=== PATIENT | female | born 2000 | race Caucasian/White ===

== ENCOUNTER 2023-07-22 17:27 | Emergency (ER) | payer MEDICAID, SELFPAY ==
[2023-07-22 17:28] VITALS: BP 136/81; PULSE 81; RESP 16; TEMP 36.3; O2SAT 98; BMI 36.1
--- NOTE | 2023-07-22 18:10 | EDS_ITS ---
HPI HPI - GI History of Present Illness Chief Complaint: Abd Pain Informant: patient Abdominal Pain/Flank Pain Onset: Weeks Context: Gradual Onset Timing: Intermittent Location: Diffuse Current Severity: Mild Maximum Severity: Mild Worsened by: Nothing Relieved by: Nothing Nausea/Vomiting/Emesis GI Symptom: Positive for Nausea Onset: Weeks Severity: Mild Diarrhea/Melena/Hematochezia GI Symptom: Positive for Diarrhea Onset: Weeks Stool Quality: Positive for Loose Severity: Mild Associated Symptoms Associated Symptoms: Negative for Dysuria, Frequency, Hematuria or Urgency Narrative Narrative: 22-year-old female about 7 weeks ago in May she had laparoscopic cholecystectomy done by Dr. Ray in [place], [place]. She has had postoperatively the next several days she had an EGD also. Since since her laparoscopic cholecystectomy she has had diarrhea and just generalized intermittent abdominal pain. She also has a history of appendectomy. Denies any other medical problems. Prior similar symptoms: Yes Recent Illness/Hospitalization: Yes PFSH PFSH Allergy/AdvReac Type Severity Reaction Status Date / Time No Known Allergies Allergy Verified 07/22/23 17:30 Surgical History Hx of appendectomy Hx of cholecystectomy Social History Smoking Status: Never smoker ROS ROS ED ROS Narrative Abdominal pain. Diarrhea. Nausea. Review of Systems ROS Unobtainable: Denies due to encephalopathy Constitutional Constitutional ED: Denies chills or fever(s) ENT ENT ED: Denies ear pain Cardiovascular Cardiovascular: Denies chest pain Respiratory/Chest Respiratory/Chest: Denies cough or dyspnea Gastrointestinal Gastrointestinal: Reports abdominal pain, diarrhea and nausea; Denies constipation, melena or vomiting Genitourinary Genitourinary ED: Denies dysuria or hematuria Musculoskeletal Musculoskeletal: Denies arthralgias Integumentary Denies abscess Neurologic Neurologic: Denies headache(s) Psychiatric Psychiatric: Denies anxiety or depression Endocrine Endocrinology: Denies polydipsia Hematologic/Lymphatic Hematologic/Lymphatic: Denies easy bleeding or easy bruising Allergic/Immunologic Allergic/Immunologic ED: Denies mouth swelling, tongue swelling or urticaria EXAM Physical Exam Narrative Exam Narrative: Well-appearing 22-year-old female. Vital signs stable afebrile. HEENT exam unremarkable. Moist extremities. Neck nontender no lymphadenopathy. Lungs clear to auscultation bilaterally. Heart regular rate and rhythm no murmur. Abdomen soft nondistended normal bowel sounds really no peritoneal signs very minimal tenderness at all. Is primarily upper quadrants. No hernia or mass. Well-healed laparoscopic incision sites. Dry and clean. No erythema. No discharge. No distention or obstruction. Patient moving all 4 extremities. Nontender no edema. Back nontender. Neurologically she is awake and alert. Const Vital Signs: 07/22/23 17:28 Temperature 97.4 F L Temperature Source Temporal Pulse Rate 81 Respiratory Rate 16 Blood Pressure 136/81 H Blood Pressure Mean 99 Pulse Ox 98 Oxygen Delivery Method Room Air Positive well nourished and well developed; Negative for cachectic, contractures or unkempt General Appearance ED: well developed and NAD; Negative for unkempt, cachectic, contractures or pallor Nutritional Appearance: Negative for cachectic HEENT Reports moist mucous membranes normocephalic and atraumatic; Negative for trauma or tenderness Eyes PERRL and EOMs intact bilaterally General Eye ED: Negative for pale conjunctiva or scleral icterus Neck no lymphadenopathy, supple and no JVD General: Negative for tenderness Lymph Lymphatic: Negative for other Resp normal respiratory effort and clear to auscultation bilaterally Effort and Inspection: Negative for respiratory distress Auscultation: Negative for rales, rhonchi or wheezes Cardio regular rate, regular rhythm, S1 normal heart sound, S2 normal heart sound and no murmurs Rate: Negative for bradycardia or tachycardic Rhythm: Negative for abnormal rhythm GI non-distended and no masses; Negative for non-tender GI Narrative: Very mild upper abdominal tenderness. Inspection: Negative for abdominal distention Auscultation: normoactive bowel sounds Palpation: soft, tender and rebound tenderness present; Negative for guarding Back/Spine Negative for no CVA tenderness General Back: Negative for CVA tenderness Cervical Spine: Negative for cervical spine tenderness Thoracic Spine / Upper Back: Negative for thoracic spinal tenderness Lumbar Spine / Lower Back: Negative for lumbar spinal tenderness Coccyx: Negative for other Extremity full ROM General Extremety ED: Negative for edema or tenderness General Extremity: Negative for edema Neuro CN's II-XII intact bilaterally and moves all extremities Sensorium / Orientation: alert, oriented to person, oriented to place and oriented to time Motor Exam: strength 5/5 throughout Psych mental status grossly normal and thought process normal Appearance: Negative for unkempt Attitude: No agitated Mood & Affect: Negative for depressed, anxious or tearful Skin no wounds General Skin Exam: Negative for jaundice or pallor Lesions: no lesions Rashes: no rashes Trauma: Negative for abrasion Nails: Negative for discolored MDM MDM MDM Narrative Medical decision making narrative: 22-year-old female abdominal pain status post laparoscopic cholecystectomy about 7 weeks ago. Very benign exam. CAT scan labs pending. She does need anything for pain at this time or nausea. History & Record Review Discussion w/independent historian: Patient Additional record(s) reviewed:: Prior labs Lab Data Attestation: I reviewed the patient's lab results. Lab results narrative: CBC normal. White count of 7. H&H of 15 and 44. Platelets 328. Electrolytes show gap of 4. Normal BUN and creatinine. Glucose 82. Liver enzymes normal. Lipase normal at 34. Serum test negative. CAT scan of the abdomen showed no acute abnormalities other than an ovarian cyst. Labs: Laboratory Results - last 24 hr 07/22/23 17:43 WBC 7.0 RBC 4.98 Hgb 15.0 Hct 44.4 MCV 89.2 MCH 30.1 MCHC 33.8 RDW Std Deviation 41.2 RDW Coeff of Ck 12.5 Plt Count 328 MPV 10.4 Immature Gran % (Auto) 0.400 Neut % (Auto) 50.1 Lymph % (Auto) 31.3 [place] % (Auto) 14.8 H Eos % (Auto) 3.0 Baso % (Auto) 0.4 Absolute Neuts (auto) 3.5 Absolute Lymphs (auto) 2.18 Nucleated RBC % 0 Sodium 140 Potassium 3.7 Chloride 108 H Carbon Dioxide 28.0 Anion Gap 4 L BUN 12 Creatinine 0.84 Estim Creat Clear Calc 122.01 Est GFR (MDRD) Af Amer 109 Est GFR (MDRD) Non-Af 90 BUN/Creatinine Ratio 14.3 Glucose 82 Calcium 10.0 Total Bilirubin 0.30 AST 22 ALT 29 Alkaline Phosphatase 100 Total Protein 8.5 H Albumin 4.0 Globulin 4.5 H Albumin/Globulin Ratio 0.9 Lipase 34 Serum , Qual NEGATIVE Radiography Diagnostic Testing: Clinical Impression(s) from Imaging Studies Abdomen/Pelvis CT 07/22/23 18:10 IMPRESSION: Postsurgical changes status post appendectomy and cholecystectomy Small bilateral ovarian cysts and trace of fluid in the cul-de-sac likely due to recent ovulation No evidence for small bowel obstruction or other acute abnormalities Electronically Signed: Calvin Mendoza MD at 19:12 EST Reading Location ID and State: [facility] / [place] Tel , Service support , Discharge Plan Triage Chief Complaint: Abd Pain ED Provider: Nic Chan Dx/Rx/DC Orders Clinical Impression: Ovarian cyst, History of cholecystectomy, History of appendectomy, Abdominal pain Instructions: Abdominal Pain Primary Care Provider: Citlaly Collazo NP Referrals: Citlaly Collazo NP, [employer] [facility] [Primary Care Provider] - 1 Week if not improving Activity Restrictions/Additional Instructions: Your labs were normal. Your CAT scan just showed 2 very small ovarian cyst. Tylenol and Motrin for pain. Follow-up with your doctor if not improving or your general surgeon. Disposition Disposition: Home, Self Care
--- NOTE | 2023-07-22 18:10 | CT_ITS ---
STUDY: CT ABDOMEN AND PELVIS WITH CONTRAST REASON FOR EXAM: Female, 22 years old. abd pain s/p lap corie RADIATION DOSAGE (If Supplied By Facility): CTDIvol = ( 16.70 ) mGy, DLP = ( 1257.83 ) mGycm TECHNIQUE: Transaxial images were obtained from the dome of the diaphragm to the symphysis pubis without oral contrast. IV 100mL Isovue-370 was administered. Sagittal and coronal images were reconstructed. Individualized dose optimization techniques were used for this CT. COMPARISON: None. FINDINGS: The visualized lung bases are unremarkable. The visualized portions of the heart are within normal limits. Normal liver. Postop change status post cholecystectomy. Normal spleen. Normal pancreas. Normal bilateral adrenal glands. Normal right kidney. Normal left kidney. Normal visualized stomach. Normal small intestine. Normal colon. Postop change status post appendectomy. Normal abdominal aorta. Normal inferior vena cava. Normal retroperitoneum. Normal urinary bladder. Small left ovarian cyst measuring 2.73 x 2.41 cm. Small right ovarian cyst measuring approximately 1.67 x 2 cm Trace of fluid in the cul-de-sac likely due to recent ovulation. Mild thickening of the periumbilical fat possibly due to recent postsurgical changes.. Normal osseous structures. CT/Abdomen/Pelvis W IV Cont ONLY IMPRESSION: Postsurgical changes status post appendectomy and cholecystectomy Small bilateral ovarian cysts and trace of fluid in the cul-de-sac likely due to recent ovulation No evidence for small bowel obstruction or other acute abnormalities Electronically Signed: Calvin Mendoza MD at 19:12 EST Reading Location ID and State: [facility] / [place] Tel , Service support ,
[2023-07-22 18:29] LABS: Absolute Lymphocyte Count 2.18 X10^3/uL (0.83-4.51); Absolute Neutrophil Count 3.5 X10^3/uL (2.0-7.7); Basophil# 0.03 X10^3/uL; Basophil% 0.4 % (0-1); Eosinophil# 0.21 X10^3/uL; Hematocrit 44.4 % (37-47); Lymphocyte # 2.18 X10^3/ul (0.83-4.51); Lymphocyte % 31.3 % (19-41); Mean Corp Hgb Conc 33.8 g/dL (32-36); Mean Corpuscular Hgb 30.1 pg (27.0-32.0); Mean Corpuscular Volume 89.2 fL (81-99); Mean Platelet Vol. 10.4 fl (6.2-12.0); Monocyte# 1.03 X10^3/uL; Monocyte% 14.8 % (0-10); NRBC Flagged by Analyzer 0 % (0-5); Neutrophil # 3.48 X10^3/uL (2.7-7.7); Neutrophil % 50.1 % (47-70); Platelet Count 328 K/mm3 (150-450); RBC Distribution Width CV 12.5 % (11.6-14.6); RBC Distribution Width SD 41.2 fl (35.1-43.9); Red Blood Count 4.98 M/mm3 (4.2-5.4)
[2023-07-22 18:38] LABS: Internal QC Validated? YES +Cl - CLEAR BKGD; Pregnancy, Serum, hCG Quali. NEGATIVE Negative
[2023-07-22 18:46] LABS: ALB/GLOB Ratio 0.9 RATIO (0.9-2.4); AST(SGOT) 22 U/L (15-37); Alanine Aminotransfer ALT/SGPT 29 U/L (13-56); Alkaline Phosphatase 100 U/L (45-117); Anion Gap 4 (5-15); BUN 12 mg/dL (7-18); BUN/Creat Ratio 14.3 RATIO (10-20); Chloride 108 mmol/L (98-107); Creatinine, Serum 0.84 mg/dL (0.55-1.02); EST Glomerular Filtration Rate 90 mL/min (>60); Est Glom Filt Rate - Afr Amer 109 mL/min (>60); Estimated Creatinine Clearance 122.01 ml/min; Globulin 4.5 g/dL (2.2-4.2); Glucose 82 mg/dL (74-106); Lipase 34 U/L (13-75); Potassium 3.7 mmol/L (3.5-5.1); Protein, Total 8.5 g/dL (6.4-8.2); Sodium Level 140 mmol/L (136-145)
[2023-07-22 19:44] VITALS: BP 115/69; PULSE 83; RESP 17; O2SAT 98
[2023-07-22 19:57] VITALS: BP 115/69; PULSE 83; RESP 17; TEMP 36.4; O2SAT 98
== END 2023-07-22 19:58 | disposition home or self-care (01) ==
PROVIDERS: Emergency Provider Emergency Medicine; PCP Nurse Practitioner Family; Visit Provider Emergency Medicine
DX: N83.202 Unspecified ovarian cyst, left side (principal); N83.201 Unspecified ovarian cyst, right side; R10.9 Unspecified abdominal pain
CPT/HCPCS: 74177; 80053; 83690; 84703; 85025; 99283; Q9967; A4216

== ENCOUNTER → 2024-09-24 | Outpatient (CLI) | payer MEDICAID, SELFPAY ==
[2024-09-24 10:49] LABS: Absolute Lymphocyte Count 2.44 X10^3/uL (0.83-4.51); Absolute Neutrophil Count 3.8 X10^3/uL (2.0-7.7); Basophil# 0.05 X10^3/uL; Basophil% 0.7 % (0-1); Eosinophil# 0.35 X10^3/uL; Eosinophils% 4.9 % (0-5); Hematocrit 42.4 % (37-47); Hemoglobin 14.1 g/dL (12.0-15.0); Lymphocyte # 2.44 X10^3/ul (0.83-4.51); Lymphocyte % 33.8 % (19-41); Mean Corp Hgb Conc 33.3 g/dL (32-36); Mean Corpuscular Hgb 28.7 pg (27.0-32.0); Mean Corpuscular Volume 86.4 fL (81-99); Mean Platelet Vol. 10.6 fl (6.2-12.0); Monocyte# 0.56 X10^3/uL; Monocyte% 7.8 % (0-10); NRBC Flagged by Analyzer 0 % (0-5); Neutrophil # 3.77 X10^3/uL (2.7-7.7); Neutrophil % 52.2 % (47-70); Platelet Count 353 K/mm3 (150-450); RBC Distribution Width CV 13.1 % (11.6-14.6); RBC Distribution Width SD 40.9 fl (35.1-43.9); Red Blood Count 4.91 M/mm3 (4.2-5.4); White Blood Count 7.2 K/mm3 (4.4-11.0)
[2024-09-24 12:04] LABS: ALB/GLOB Ratio 1.3 RATIO (0.9-2.4); AST(SGOT) 37 U/L (<=31); Alanine Aminotransfer ALT/SGPT 48 U/L (<=34); Albumin, Serum 4.5 g/dL (3.5-5.0); Alkaline Phosphatase 102 U/L (35-104); Anion Gap 14 (5-15); BUN 11 mg/dL (4-19); BUN/Creat Ratio 14.2 RATIO (10-20); CRP 3.89 mg/L (0.0-3.0); Calcium,Total 9.7 mg/dL (7.6-11.0); Carbon Dioxide 20.9 mmol/L (21.0-32.0); Chloride 105 mmol/L (98-108); Creatinine, Serum 0.74 mg/dL (0.70-1.20); EST Glomerular Filtration Rate 117 (>60); Globulin 3.5 g/dL (2.2-4.2); Glucose 96 mg/dL (70-99); Sodium Level 140 mmol/L (133-145); Thyroid Stim Hormone (TSH) 0.741 uIU/mL (0.300-4.200); Total Bilirubin 0.31 mg/dL (0.00-1.30)
== END | disposition home or self-care (01) ==
LOC: LAB 09:40
PROVIDERS: PCP Nurse Practitioner Family
DX: R19.7 Diarrhea, unspecified (principal)
CPT/HCPCS: 36415; 80053; 82784; 83516; 84443; 85025; 86140; 86255

== ENCOUNTER → 2024-09-25 | Outpatient (CLI) | payer MEDICAID, SELFPAY ==
[2024-09-27 12:08] LABS: Pancreatic Elastase, Fecal > 800 (>200)
[2024-09-28 02:07] LABS: Calprotectin, Stool 18 ug/g (0-120)
== END | disposition home or self-care (01) ==
LOC: LABSPEC 09:03
PROVIDERS: PCP Nurse Practitioner Family
DX: R19.7 Diarrhea, unspecified (principal)
CPT/HCPCS: 82653; 83993

== ENCOUNTER → 2025-01-04 | Outpatient (CLI) | payer MEDICAID, SELFPAY ==
--- NOTE | 2025-01-04 10:06 | NM_ITS ---
PROCEDURE: GASTRIC EMPTYING STUDY 01/04/2025 REASON FOR EXAM: FREQUENT NAUSEA TECHNIQUE: The patient ingested a standard meal of oatmeal, radiopharmaceutical and water. There was no vomiting postprandially. Anterior and posterior planar images of the upper abdomen were obtained for 1 minute immediately following the meal at 1h, 2h and 4h if more than 10% of the activity persisted within the stomach. Regions of interest were drawn, and a geometric mean was used to calculate a [id number]. RADIOPHARMACEUTICAL: Sulfur colloid DOSE 1.2 mCimCi FINDINGS: Percent activity remaining in stomach: 1 hour 69 % (normal 37-90%) NM/Gastric Emptying Study IMPRESSION: Normal gastric emptying examination. Reading Location: [place] [id number]
--- OUTSIDE RECORDS SUMMARY | 2025-01-04 19:04 | XMS RPT_ITS | CCD ---
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 Name Role Phone Required, No Pcp Unavailable Unavailable Gallo Solo Unavailable Albina Fletcher Unavailable ISAURA CONN CNP Attending Unavailable ISAURA CONN CNP Primary Care Unavailable ISAURA CONN CNP Admitting Unavailable Uptain CNM, Crystal K Unavailable [phone] Steffany SHEPARDN, Antonina Unavailable Ana Smith LPN Unavailable Unavailable Unavailable Unavailable Tom WEAVER, Jass Unavailable Unavailable Dewey CHOUDHURY, Susan Unavailable Unavailable [facility] Attending Unavailable UPTAIN, CRYSTAL CNM Admitting Unavailable UPTAIN, CRYSTAL CNM Attending Unavailable UPTAIN, CRYSTAL CNM Primary Care Unavailable ISAURA CONN CNP Consulting Unavailable PROVIDER, UNKNOWN Consulting Unavailable PROVIDER, UNKNOWN Consulting Unavailable UPTAIN, CRYSTAL CNM Admitting Unavailable UPTAIN, CRYSTAL CNM Attending Unavailable UPTAIN, CRYSTAL CNM Primary Care Unavailable ISAURA CONN CNP Consulting Unavailable PROVIDER, UNKNOWN Consulting Unavailable PROVIDER, UNKNOWN Consulting Unavailable UPTAIN, CRYSTAL CNM Admitting Unavailable UPTAIN, CRYSTAL CNM Attending Unavailable UPTAIN, CRYSTAL CNM Primary Care Unavailable ISAURA CONN CNP Consulting Unavailable PROVIDER, UNKNOWN Consulting Unavailable PROVIDER, UNKNOWN Consulting Unavailable ISAURA CONN CNP Admitting Unavailable ISAURA CONN CNP Attending Unavailable ISAURA CONN CNP Primary Care Unavailable ISAURA CONN CNP Consulting Unavailable PROVIDER, UNKNOWN Consulting Unavailable PROVIDER, UNKNOWN Consulting Unavailable ISAURA CONN CNP Admitting Unavailable ISAURA CONN CNP Attending Unavailable ISAURA CONN CNP Primary Care Unavailable ISAURA CONN CNP Consulting Unavailable PROVIDER, UNKNOWN Consulting Unavailable PROVIDER, UNKNOWN Consulting Unavailable UPTAIN, CRYSTAL CNM Admitting Unavailable UPTAIN, CRYSTAL CNM Attending Unavailable UPTAIN, CRYSTAL CNM Primary Care Unavailable ISAURA CONN FENCE SUPERVISOR Consulting Unavailable PROVIDER, UNKNOWN Consulting Unavailable PROVIDER, UNKNOWN Consulting Unavailable Senia ACCESS RN-C, Isaura Primary Care Provider Senia ACCESS RN-C, Isaura Referring Provider Hermann ACCESS RN-C, Patience Attending Provider [phone] Hermann ACCESS RN-C, Patience Referring Provider [phone] Patrick PA-C, Betty Jasso Unavailable Senia ACCESS RN, Isaura Primary Care Unavailable Senia ACCESS RN, Isaura Referring Unavailable Mccrary, Patience Attending Unavailable Mccrary, Patience Attending Unavailable Senia ACCESS RN, Isaura Referring Unavailable Senia ACCESS RN, Isaura Primary Care Unavailable Mccrary, Patience Attending Unavailable Senia ACCESS RN, Isaura Referring Unavailable Senia ACCESS RN, Isaura Primary Care Unavailable Senia ACCESS RN, Isaura Primary Care Unavailable Mccrary, Patience Referring Unavailable Mccrary, Patience Attending Unavailable Senia ACCESS RN, Isaura Primary Care Unavailable Mccrary, Patience Referring Unavailable Mccrary, Patience Attending Unavailable Mccrary, Patience Attending Unavailable Senia ACCESS RN, Isaura Primary Care Unavailable Mccrary, Patience Referring Unavailable Senia ACCESS RN, Isaura Referring Unavailable Senia ACCESS RN, Isaura Primary Care Unavailable Mccrary, Patience Attending Unavailable Medications Current Medications Medication Drug Class(es) Dates Sig (Normalized) Sig (Original) colestipol hydrochloride 1000 mg oral tablet (2 sources) Bile Acid Sequestrant Start: 10-11-2024 Colestipol (Colestid) 1 gram tablet Active 1 g PO TWICE A DAY 60 0 October 11, 2024 12:00am Completed/Discontinued Medications Medication Drug Class(es) Dates Sig (Normalized) Sig (Original) nitrofurantoin, macrocrystals 25 mg / nitrofurantoin, monohydrate 75 mg oral capsule (20 sources) Nitrofuran Antibacterial Start: 02-02-2024 End: 02-09-2024 Macrobid 100 mg capsule ; 1 (one) capsule two times daily for 7 days Quantity: 14 {Capsule} Refills: 0 Ordered: 02-Feb-2024 BRENDON Francisco Debra Moreno Start: 02-Feb-2024 End: 09-Feb-2024 Status: Inactive Problems Active Problems Problem Classification Problem Date Documented Da te Episodic/Chronic Abdominal pain (3 sources) Abdominal pain; Translations: [Unspecified abdominal pain] 07-22-2023 Episodic Contraceptive and procreative management (14 sources) Contraception status; Translations: [Encounter for other general counseling and advice on contraception] 09-13-2024 Episodic Genitourinary symptoms and ill-defined conditions (20 sources) Bacteriuria; Translations: [Bacteriuria] 02-02-2024 Episodic Other complications of (3 sources) Maternal care for abnormalities of the heart rate or rhythm, third trimester, not applicable or unspecified; Translations: [Maternal care for abnormalities of the heart rate or rhythm, third trimester, not applicable or unspecified] Onset: 07-19-2024 Episodic Other connective tissue disease (1 source) Pain in thumb ; Translations: [Pain in limb] 07-11-2021 Episodic Other connective tissue disease (3 sources) Pain in right leg; Translations: [Pain in right leg] Onset: 07-09-2024 Episodic Other gastrointestinal disorders (12 sources) Disorder of digestive system; Translations: [Disease of digestive system, unspecified] 09-13-2024 Episodic Comment on above: states every time sh e eats she has vomiting and diarrhea, every single time. weight loss of 5lbs in the last 6 weeks since 1 week post-op. history of chronic stomach issues prior to . Other gastrointestinal disorders (6 sources) Diarrhea; Translations: [Diarrhea, unspecified] 09-24-2024 Episodic Other gastrointestinal disorders (2 sources) Diarrhea, unspecified; Translations: [Diarrhea, unspecified] Onset: 12-20-2024 Episodic Other nervous system disorders (12 sources) Numbness of lower limb ; Translations: [Anesthesia of skin] 09-13-2024 Episodic Comment on above: normal strength, nor mal tone, normal ROM, resist gravity and pressure, sensation to sharp intact, states dull is also sharp. states constant numbness that does not go away. Other nutritional; endocrine; and metabolic disorders (12 sources) Body mass index 30+ - obesity; Translations: [Obesity, unspecified] 09-13-2024 Chronic Other and delivery including normal (20 sources) Primigravida; Translations: [Encounter for supervision of normal first , first trimester] Onset: 07-19-2024 12-29-2023 Episodic Other screening for suspected conditions (not mental disorders or infectious disease) (20 sources) Patient encounter status; Translations: [Encounter for screening, unspecified] 04-21-2024 Episodic Ovarian cyst (3 sources) Cyst of ovary; Translations: [Unspecified ovarian cyst, unspecified side] 07-22-2023 Episodic Residual codes; unclassified (20 sources) Gestation period, 10 weeks; Translations: [10 weeks gestation of ] 12-29-2023 Episodic Residual codes; unclassified (20 sources) Non-smoker; Translations: [Other specified health status] 12-29-2023 Episodic Residual codes; unclassified (20 sources) Not up to date with immunizations; Translations: [Other specified personal history presenting hazards to health] 12-29-2023 Episodic Comment on above: partial childhood va ccines, 1MMR partial childhood va ccines, 1MMR----not immune to varicella by titer Residual codes; unclassified (20 sources) Gestation period, 13 weeks; Translations: [13 weeks gestation of ] 01-19-2024 Episodic Residual codes; unclassified (20 sources) Gestation period, 17 weeks; Translations: [17 weeks gestation of ] 02-17-2024 Episodic Residual codes; unclassified (20 sources) Gestation period, 22 weeks; Translations: [22 weeks gestation of ] 03-22-2024 Episodic Residual codes; unclassified (20 sources) Gestation period, 26 weeks; Translations: [26 weeks gestation of ] 04-21-2024 Episodic Residual codes; unclassified (20 sources) Gestation period, 30 weeks; Translations: [30 weeks gestation of ] 05-20-2024 Episodic Residual codes; unclassified (19 sources) Gestation period, 33 weeks; Translations: [33 weeks gestation of ] 06-07-2024 Episodic Residual codes; unclassified (20 sources) Gestation period, 36 weeks; Translations: [36 weeks gestation of ] 06-30-2024 Episodic Residual codes; unclassified (20 sources) Gestation period, 38 weeks; Translations: [38 weeks gestation of ] 07-14-2024 Episodic Residual codes; unclassified (1 source) 39 weeks gestation of ; Translations: [39 weeks gestation of ] Onset: 07-19-2024 Episodic Residual codes; unclassified (12 sources) At risk for depressed mood during period; Translations: [Other specified personal risk factors, not elsewhere classified] 09-13-2024 Episodic Comment on above: edps is 05/24 which indicates depression but denies depression today Residual codes; unclassified (4 sources) Unprotected sexual intercourse; Translations: [High risk heterosexual behavior] 11-02-2024 Episodic Unclassified (2 sources) FINGER PAIN/ HAND PAIN 07-11-2021 Comment on above: FINGER PAIN/ HAND PA IN Unclassified (1 source) NPV..HAND PAIN.. NEEDS TO ESTABLISH PCP CARE 07-11-2021 Comment on above: NPV..HAND PAIN.. NEE DS TO ESTABLISH PCP CARE Unclassified (1 source) Thumb pain 07-11-2021 Unclassified (20 sources) Abortions, spontaneous 12-29-2023 Comment on above: 2. 3. Unclassified (20 sources) 12-29-2023 Comment on above: 3. Unclassified (20 sources) Number of Children 12-29-2023 Comment on above: 0. 1. Unclassified (20 sources) Number of Pregnancies 12-29-2023 Comment on above: 3. 4. Unclassified (8 sources) deliveries 07-28-2024 Comment on above: 1. Viral infection (20 sources) Varicella 12-29-2023 Episodic Comment on above: unsure of status, no vaccine unsure of status, no vaccine titer shows not immune Past or Other Problems Problem Classification Problem Date Documented Da te Episodic/Chronic Unclassified (20 sources) visit (initial) 12-29-2023 Unclassified (20 sources) visit - The patient is here for a 13 week (1) visit. 01-19-2024 Unclassified (1 source) visit - The patient is here for a 17 week (2 days) visit. 02-17-2024 Unclassified (20 sources) visit - The patient is here for a 17 week (2 days) visit. The patient feels well with no complaints. 02-17-2024 Unclassified (20 sources) visit - The patient is here for a 22 week visit. 03-22-2024 Unclassified (20 sources) visit - The patient is here for a 26 week (3 days) visit. 04-21-2024 Unclassified (1 source) visit - The patient is here for a 30 week (4 days) visit. 05-20-2024 Unclassified (19 sources) visit - The patient is here for a 30 week (4 days) visit. The patient feels well with no complaints. 05-20-2024 Unclassified (18 sources) visit - The patient is here for a 33 week (2) visit. 06-08-2024 Unclassified (16 sources) visit - The patient is here for a 36 week (1 day) visit. 06-30-2024 Unclassified (14 sources) visit - The patient is here for a 38 week (3 days) visit. 07-14-2024 Unclassified (8 sources) Post- visit - The patient is here for an initial visit after an elective (Initial trial of induction, FHR decelerations). The was complicated by other complication(s) (FHR decelerations). The patient has decreased energy level, is sleeping well and feels well with minor complaints. The patient has complaints of incisional pain (mild left side, taking Ibuprofen for same). There are no urinary problems. There are no bowel problems. Perineum/wound: abdominal wound healing well. Lochia is scant. The patient is formula feeding the infant. There are no feeding difficulties. 07-28-2024 Unclassified (7 sources) Post- visit - The patient is here for a scheduled follow-up visit after an elective . There were no complications. The patient is sleeping well, has good energy level and feels well with minor complaints (numbness in legs what comes and goes). The patient denies chills, depression (post- blues), fatigue or fever. There are no urinary problems. There are no bowel problems. Perineum/wound: abdominal wound healing well. There is no lochia. The patient is formula feeding the . There are no feeding difficulties. Menstruation: spotting. Patient states that sexual activity has resumed and contraception is not used. No control is currently used. The patient has resumed work, resumed routine exercise and resumed physical activity. Patient states that she is coping/adjusting to motherhood well and family is interacting well with . 09-13-2024 Unclassified (1 source) IUD placement 11-02-2024 Unclassified (2 sources) IUD placement - LMP 2 weeks ago, lasting 1 week. 11-02-2024 Unclassified (1 source) String Check - IUD was placed 11/02/24 LMP 11/28/24No cramping or painpt does say she has had spotting off and on since getting IUD placed Patient has a 5 year IUD 11-29-2024 Results Test Name Value Interpretation Reference Range Facility Gastroenterology Visit Repor ton 12-17-2024 Gastroenterology Visit Report [facility] [address] [place] [address] OFFICE VISIT Date of Service: 12/17/24 MR#: [id number] Acct: [id number] Name: SHWETA ARMENDARIZ Rep #: [id number] : 2000 Provider: TWILA kate Age/Sex: 24/F Location: [facility] [place] Status: Signed Intake Vital Signs 07/22/23 17:28 Height 5 ft 5 in Intake Visit Reasons: Nausea/Vomiting Allergies No Known Allergies Allergy (Verified 12/17/24 08:17) PFSH Medical History (Updated 12/17/24 @ 08:59 by TWILA Hale) Dyspepsia Right leg pain Generalized postprandial abdominal pain Diarrhea Surgical History Hx of cholecystectomy Hx of appendectomy Social History Smoking Status: Never smoker alcohol intake: never substance use type: does not use HPI HPI Details: SHWETA ARMENDARIZ, is a 24 F who presents to the office today for FU. 5 OV Established 5.2.25 with c/o diarrhea w/urgency after eating associated with nausea. Serum and fecal testing ruled out EPI, IBD. She denies abdominal pain at any point. She has not really tried to increase dietary fiber or peppermint or quique for her nausea as recommended. She denies noticing any specific food triggers. She denies notable weight loss, reports appropriate healing from and baby boy is growing well and being bottle/formula fed. 12.17.24 OV Reports stopping colestipol soon after starting. She reports immediate nausea after taking, but sated it did help lessen my diarrhea. She denies trying quique or peppermint as previously advised to help with her nausea. She denies increasing dietary fiber. She has bowel urgency following every meal, regardless of the size of the meal. She does report eliminating meat, mostly red, from her diet. She reports less gas with this diet change. ROS Const Constitutional: Positive for headache(s); No fatigue, fever(s) or weight change ENT ENT: Positive for headache(s); No difficulty swallowing Gastro GI: Positive for diarrhea and nausea/dyspepsia; No abdominal pain, belching, bloating, change in bowel habits, change in stool character, coffee ground emesis, constipation, cramping, heartburn, difficulty swallowing, feeling full early, excessive flatus, incontinent of stools, Vomiting blood/hematemesis, Blood in stool, loose stools, Black,tarry stools, pain with swallowing, vomiting or other Musc Musculoskeletal: Positive for back pain, numbness, stiffness and tingling; No joint pain Skin Skin: No yellowing of the eye or itchy eyes Neuro Neurology: Positive for headache(s), numbness and tingling Psych Psychiatric: No anxiety and No depression Endo Endocrine: No fatigue or weight change Aller/Imm Allergy/Immunologic: No itchy eyes Carlo/Lymp Hematologic/Lymphatic : No easy bleeding or easy bruising Exam Const General: cooperative, healthy appearing, comfortable, no acute distress and well groomed Nutritional Appearance: overweight Orientation: alert and oriented x3 [facility] Head: normal to inspection Ears: hearing grossly normal bilaterally Eyes General: appearance normal, both eyes and all related structures Sclera: sclerae normal Neck Neck: normal visual inspection and full ROM Chest Chest palpation inspection: normal inspection of the chest Resp Effort Inspection: normal respiratory effort and able to speak in complete sentences GI Inspection: normal to inspection and obesity Skin General: no rashes or lesions noted Neuro General: patient alert, patient oriented x3 and moves all extremities Cognition: normal cognition Speech: speech normal Gait: normal gait Extrem General: full ROM Psych Appearance: well kempt Mental Status: mental status grossly normal Mood: congruent mood Judgment: judgment good Assessment and Plan Assessment and Plan (1) Diarrhea: Status: Chronic Qualifiers: Diarrhea type: unspecified type Qualified Code(s): R19.7 - Diarrhea, unspecified (2) Nausea: Status: Acute Orders: Orders Gastric Emptying Study Today R19.7 - Diarrhea, unspecified Medications: Discontinued colestipol (Colestid) Discontinued Reason: Pt no longer taking 1 g PO BID 60 tabs 0RF Plan SHWETA ARMENDARIZ, is a 24 F who presents to the office today for FU. Reports stopping colestipol soon after starting. She reports immediate nausea after taking, but sated it did help lessen my diarrhea. She denies trying quique or peppermint as previously advised to help with her nausea. She denies increasing dietary fiber. She has bowel urgency following every meal, regardless of the size of the meal. She does report eliminating meat, mostly red, from her diet. She reports less gas with this diet change (more content not included)... Normal [facility] Laboratory - Chemistry and C hemistry - challengeon 11-02-2024 Beta HCG ( test) Ql (U) Negative Normal [facility] Gastroenterology Visit Repor ton 10-11-2024 Gastroenterology Visit Report [facility] Gastroenterology [address] [place] [address] OFFICE VISIT Date of Service: 10/11/24 MR#: [id number] Acct: [id number] Name: SHWETA ARMENDARIZ Rep #: [id number] : 2000 Provider: TWILA kate Age/Sex: 23/F Location[place] [facility] [place] Status: Signed Intake Vital Signs 07/22/23 17:28 Height 5 ft 5 in Intake Visit Reasons: 2 W FU Allergies No Known Allergies Allergy (Verified 10/11/24 10:37) Medications ???Medication ???Instructions ???Recorded ???Confirmed ???Type colestipol 1 gram tablet (Colestid) 1 g PO BID #60 tabs 10/11/24 Rx PFSH Medical History Dyspepsia Right leg pain Generalized postprandial abdominal pain Diarrhea Surgical History Hx of cholecystectomy Hx of appendectomy Social History Smoking Status: Never smoker alcohol intake: never substance use type: does not use HPI HPI Details: SHWETA ARMENDARIZ, is a 23 F who presents to the office today for FU. Established 5.2.25 with c/o diarrhea w/urgency after eating associated with nausea. Serum and fecal testing ruled out EPI, IBD. She denies abdominal pain at any point. She has not really tried to increase dietary fiber or peppermint or quique for her nausea as recommended. She denies noticing any specific food triggers. She denies notable weight loss, reports appropriate healing from and baby boy is growing well and being bottle/formula fed. ROS Const Constitutional: No fatigue, fever(s) or weight change ENT ENT: No difficulty swallowing Gastro GI: Positive for abdominal pain, diarrhea and nausea/dyspepsia; No belching, bloating, change in bowel habits, change in stool character, coffee ground emesis, constipation, cramping, heartburn, difficulty swallowing, feeling full early, excessive flatus, incontinent of stools, Vomiting blood/hematemesis, Blood in stool, loose stools, Black,tarry stools, pain with swallowing, vomiting or other Musc Musculoskeletal: No joint pain Skin Skin: No yellowing of the eye or itchy eyes Psych Psychiatric: No anxiety and No depression Endo Endocrine: No fatigue or weight change Aller/Imm Allergy/Immunologic: No itchy eyes Carlo/Lymp Hematologic/Lymphatic : No easy bleeding or easy bruising Exam Const General: cooperative, healthy appearing, no acute distress and well groomed Nutritional Appearance: overweight Orientation: alert and oriented x3 [facility] Head: normal to inspection Ears: hearing grossly normal bilaterally Eyes General: appearance normal, both eyes and all related structures Sclera: sclerae normal Neck Neck: normal visual inspection and full ROM Chest Chest palpation inspection: normal inspection of the chest Resp Effort Inspection: normal respiratory effort, able to speak in complete sentences and symmetric chest movement GI Inspection: obesity Skin General: no rashes or lesions noted Neuro General: patient alert, patient oriented x3 and moves all extremities Cognition: normal cognition Speech: speech normal Gait: normal gait Extrem General: full ROM Psych Appearance: well kempt Mental Status: mental status grossly normal Mood: congruent mood Judgment: judgment good Assessment and Plan Assessment and Plan (1) Diarrhea: Status: Acute Qualifiers: Diarrhea type: unspecified type Qualified Code(s): R19.7 - Diarrhea, unspecified Medications: New colestipol (Colestid) 1 g PO BID 60 tabs 0RF Plan SHWETA ARMENDARIZ, is a 23 F who presents to the office today for FU. Established 5.2.25 with c/o diarrhea w/urgency after eating associated with nausea. Serum and fecal testing ruled out EPI, IBD. She denies abdominal pain at any point. She has not really tried to increase dietary fiber or peppermint or quique for her nausea as recommended. She denies noticing any specific food triggers. She denies notable weight loss, reports appropriate healing from and baby boy is growing well and being bottle/formula fed. * colestipol 1gm PO twice daily, take 1 hr AFTER other medications or supplements, may increase to 4 times daily if no change in stool character after 3 days * increase dietary fiber * ok for peppermint use for nausea, 5 drops of oil mixed w/1Tbsp water, candies, tea * office FU 2wks Coding Level of Care Code Established Pt Off vis,est,level 2 Patient Type Established History Problem Focused Exam Problem Focused Medical Decision Making Low Complexity Diagnoses Diarrhea, unspecified type R19.7 Diarrhea type: unspecified type Clinical Quality Measures Smoking Screening Smoking Status: Never smoker 10/11 (more content not included)... Normal [facility] Calprotectin, Stoolon [address] 18 ug/g Normal 0-120 [facility] Comment on above: Result Comment: Conc entration Interpretation Follow-Up < 5 - 50 ug/g Normal None >50 -120 ug/g Borderline Re-evaluate in 4-6 weeks >120 ug/g Abnormal Repeat as clinically indicated Performed at: - [facility] [id number] Kayak Maker: Raymond Charles MD, Phone: [phone] Performed By: #### L [id number], L7200.0700 #### [facility] [address] [place], [address] Celiac Disease Profileon ENDOMYSIAL IGA Negative Normal Negative [facility] Comment on above: Performed By: #### L [id number], L500.4050, L3410.2400, L501.9520, L100.0100 #### [facility] [address] [place], [place], [id number] IMMUNOGLOB A QN 183 mg/dL Normal 87-352 [facility] Comment on above: Result Comment: Perf ormed at: [facility] [id number] Kayak Maker: Aaron French PhD, Phone: [phone] Performed By: #### L [id number], L500.4050, L3410.2400, L501.9520, L100.0100 #### [facility] [address] [place], [address] tTG IGA <2 Normal 0-3 [facility] Comment on above: Result Comment: Nega tive 0 - 3 Weak Positive 4 - 10 Positive >10 Tissue Transglutaminase (tTG) has been identified as the endomysial antigen. Studies have demonstr- ated that endomysial IgA antibodies have over 99% specificity for gluten sensitive enteropathy. Performed By: #### L [id number], L500.4050, L3410.2400, L501.9520, L100.0100 #### [facility] [address] [place], [place], [address] L7000.0750on 09-27-2024 P ELASTASE,FECA > 800 Normal >200 [facility] Comment on above: Result Comment: Resu lt Units: ug Elast./g Severe Pancreatic Insufficiency: <100 Moderate Pancreatic Insufficiency: 100 - 200 Normal: >200 Performed at: [address] [id number] Kayak Maker: Raymond Charles MD, Phone: [phone] Performed By: #### L 7000.0750, L7000.0700 #### [facility] Laboratory [address] [place], [address] Absolute lymphocyte countOrd ered By: Patience Mccrary on 09-24-2024 Lymphocytes Auto (Unsp spec) [#/Vol] 2.44 10*3/uL 0.83-4.51 [facility] Absolute neutrophil countOrd ered By: Patience Mccrary on 09-24-2024 Neutrophils (Bld) [#/Vol] 3.8 10*3/uL 2.0-7.7 [facility] Anion gap in Serum or Plasma Ordered By: Patience Mccrary on 09-24-2024 Anion gap [Moles/Vol] 14 mmol/L 5- [facility] Automated lymphocyte count a s percentage of total leukocytesOrdered By: Patience Mccrary on 09-24-2024 Lymphocytes/100 WBC Auto (Unsp spec) 33.8 % - [facility] BUN/creatinine ratioOrdered By: Patience Mccrary on 09-24-2024 Urea nitrogen/Creatinine [Mass ratio] 14.2 mg/mg 10- [facility] Basophil percentageOrdered B y: Patience Mccrary on 09-24-2024 Basophils/100 WBC (Bld) 0.7 % 0-[address] [facility] Bilirubin, totalOrdered By: Patience Mccrary on 09-24-2024 Bilirubin [Mass/Vol] 0.31 mg/dL 0.00-1.30 [facility] CBC W/Diff, Automatedon Absolute Lymph 2.44 X10 3/uL Normal 0.83-4.51 [facility] Comment on above: Performed By: #### L 501.6710, L500.4050, L3410.2400, L501.9520, L100.0100 #### [facility] [address] [place], [address] Absolute Neut 3.8 X10 3/uL Normal 2.0-7.7 [facility] Comment on above: Performed By: #### L 501.6710, L500.4050, L3410.2400, L501.9520, L100.0100 #### [facility] [address] [place], [address] Basophils/100 WBC (Bld) 0.7 % Normal 0-[address] [facility] Comment on above: Performed By: #### L 501.6710, L500.4050, L3410.2400, L501.9520, L100.0100 #### [facility] [address] [place], [address] Eosinophils/100 WBC (Bld) 4.9 % Normal 0-5 [facility] Comment on above: Performed By: #### L 501.6710, L500.4050, L3410.2400, L501.9520, L100.0100 #### [facility] [address] [place], [address] Erythrocyte distribution width (RBC) [Ratio] 13.1 % Normal 11.6-14.6 [facility] Comment on above: Performed By: #### L 501.6710, L500.4050, L3410.2400, L501.9520, L100.0100 #### [facility] [address] [place], [address] Hematocrit (Bld) [Volume fraction] 42.4 % Normal 37-47 [facility] Comment on above: Performed By: #### L 501.6710, L500.4050, L3410.2400, L501.9520, L100.0100 #### [facility] [address] [place], [address] Hemoglobin (Bld) [Mass/Vol] 14.1 g/dL Normal 12.0-15.0 [facility] Comment on above: Performed By: #### L 501.6710, L500.4050, L3410.2400, L501.9520, L100.0100 #### [facility] [address] [place], [address] IG% 0.600 Normal 0.0-0.9 [facility] Comment on above: Result Comment: IG% - Immature Granulocytes (promyelocytes, myelocytes and metamyelocytes) > 1% indicates that a LEFT SHIFT is Present. Performed By: #### L 501.6710, L500.4050, L3410.2400, L501.9520, L100.0100 #### [facility] [address] [place], [address] Lymphocytes/100 WBC (Bld) 33.8 % Normal 19-41 [facility] Comment on above: Performed By: #### L 501.6710, L500.4050, L3410.2400, L501.9520, L100.0100 #### [facility] [address] [place], [address] MCH (RBC) [Entitic mass] 28.7 pg Normal 27.0-32.0 [facility] Comment on above: Performed By: #### L 501.6710, L500.4050, L3410.2400, L501.9520, L100.0100 #### [facility] [address] [place], [address] MCHC (RBC) [Mass/Vol] 33.3 g/dL Normal 32-36 [facility] Comment on above: Performed By: #### L 501.6710, L500.4050, L3410.2400, L501.9520, L100.0100 #### [facility] [address] [place], [address] MCV (RBC) [Entitic vol] 86.4 fL Normal 81-[address] [facility] Comment on above: Performed By: #### L 501.6710, L500.4050, L3410.2400, L501.9520, L100.0100 #### [facility] [address] [place], [address] Monocytes/100 WBC (Bld) 7.8 % Normal 0-[address] [facility] Comment on above: Performed By: #### L 501.6710, L500.4050, L3410.2400, L501.9520, L100.0100 #### [facility] [address] [place], [address] Neutrophils/100 WBC (Bld) 52.2 % Normal 47-70 [facility] Comment on above: Performed By: #### L 501.6710, L500.4050, L3410.2400, L501.9520, L100.0100 #### [facility] [address] [place], [address] Nucleated RBC (Bld) [#/Vol] 0 10*3/uL Normal 0-5 [facility] Comment on above: Performed By: #### L 501.6710, L500.4050, L3410.2400, L501.9520, L100.0100 #### [facility] [address] [place], [address] Platelet mean volume (Bld) [Entitic vol] 10.6 fL Normal 6.2-12.0 [facility] Comment on above: Performed By: #### L 501.6710, L500.4050, L3410.2400, L501.9520, L100.0100 #### [facility] [address] [place], [address] Platelets (Bld) [#/Vol] 353 10*3/uL Normal 150-450 [facility] Comment on above: Performed By: #### L 501.6710, L500.4050, L3410.2400, L501.9520, L100.0100 #### [facility] [address] [place], [address] RBC (Bld) [#/Vol] 4.91 10*6/uL Normal 4.2-5.4 [facility] Comment on above: Performed By: #### L 501.6710, L500.4050, L3410.2400, L501.9520, L100.0100 #### [facility] [address] [place], [address] RDW SD 40.9 fl Normal 35.1-43.9 [facility] Comment on above: Performed By: #### L 501.6710, L500.4050, L3410.2400, L501.9520, L100.0100 #### [facility] [address] [place], [address] WBC (Bld) [#/Vol] 7.2 10*3/uL Normal 4.4-11.0 [facility] Comment on above: Performed By: #### L 501.6710, L500.4050, L3410.2400, L501.9520, L100.0100 #### [facility] [address] [place], [address] CRPon 09-24-2024 C-REACTIVE PROT 3.89 mg/L High 0.0-3.0 [facility] Comment on above: Performed By: #### L 501.6710, L500.4050, L3410.2400, L501.9520, L100.0100 #### [facility] [address] [place], [address] Calprotectin stoolOrdered By : Patience Mccrary on 09-24-2024 Calprotectin stool 18 ug/g 0-120 [facility] Comment on above: Concentration Interp retation Follow-Up< 5 - 50 ug/g Normal None>50 -120 ug/g Borderline Re-evaluate in 4-6 weeks >120 ug/g Abnormal Repeat as clinically indicatedPerformed at: - [facility] [address] [id number] Director: Raymond Charles MD, Phone: [phone] Carbon dioxide, total [Moles /volume] in Central venous bloodOrdered By: Patience Mccrary on 09-24-2024 CO2 [Moles/Vol] 20.9 mmol/L Low 21.0-32.0 [facility] Chloride assayOrdered By: Jamie aletha Mccrary on 09-24-2024 Chloride [Moles/Vol] 105 mmol/L 98-108 [facility] Comprehensive Metabolic Prof ilon 09-24-2024 Albumin [Mass/Vol] 4.5 g/dL Normal 3.5-5.0 [facility] Comment on above: Performed By: #### L 501.6710, L500.4050, L3410.2400, L501.9520, L100.0100 #### [facility] [address] [place], [address] Albumin/Globulin [Mass ratio] 1.3 {ratio} Normal 0.9-2.4 [facility] Comment on above: Performed By: #### L 501.6710, L500.4050, L3410.2400, L501.9520, L100.0100 #### [facility] [address] [place], [address] ALK PHOS 102 U/L Normal 35-104 [facility] Comment on above: Performed By: #### L 501.6710, L500.4050, L3410.2400, L501.9520, L100.0100 #### [facility] [address] [place], [address] ALT [Catalytic activity/Vol] 48 U/L High <=34 [facility] Comment on above: Performed By: #### L 501.6710, L500.4050, L3410.2400, L501.9520, L100.0100 #### [facility] [address] [place], [address] AST [Catalytic activity/Vol] 37 U/L High <=31 [facility] Comment on above: Performed By: #### L 501.6710, L500.4050, L3410.2400, L501.9520, L100.0100 #### [facility] [address] [place], [address] Bilirubin [Mass/Vol] 0.31 mg/dL Normal 0.00-1.30 [facility] Comment on above: Performed By: #### L 501.6710, L500.4050, L3410.2400, L501.9520, L100.0100 #### [facility] [address] [place], [address] BUN/CRE 14.2 RATIO Normal 10-20 [facility] Comment on above: Performed By: #### L 501.6710, L500.4050, L3410.2400, L501.9520, L100.0100 #### [facility] [address] [place], [address] Calcium [Mass/Vol] 9.7 mg/dL Normal 7.6-11.0 [facility] Comment on above: Performed By: #### L 501.6710, L500.4050, L3410.2400, L501.9520, L100.0100 #### [facility] [address] [place], [address] Chloride [Moles/Vol] 105 mmol/L Normal 98-108 [facility] Comment on above: Performed By: #### L 501.6710, L500.4050, L3410.2400, L501.9520, L100.0100 #### [facility] [address] [place], [address] CO2 [Moles/Vol] 20.9 mmol/L Low 21.0-32.0 [facility] Comment on above: Performed By: #### L 501.6710, L500.4050, L3410.2400, L501.9520, L100.0100 #### [facility] [address] [place], [address] Creatinine [Mass/Vol] 0.74 mg/dL Normal 0.70-1.20 [facility] Comment on above: Performed By: #### L 501.6710, L500.4050, L3410.2400, L501.9520, L100.0100 #### [facility] [address] [place], [address] GAP 14 Normal 5-15 [facility] Comment on above: Performed By: #### L 501.6710, L500.4050, L3410.2400, L501.9520, L100.0100 #### [facility] [address] [place], [address] GFR/1.73 sq M.predicted among non-blacks MDRD (S/P/Bld) [Vol rate/Area] 117 mL/min/{1.73_m2} Normal >60 [facility] Comment on above: Result Comment: mL/m in/1.73m2 CKD-EPI Creatinine Equation (2020) Performed By: #### L 501.6710, L500.4050, L3410.2400, L501.9520, L100.0100 #### [facility] [address] [place], [address] Globulin (S) [Mass/Vol] 3.5 g/dL Normal 2.2-4.2 [facility] Comment on above: Performed By: #### L 501.6710, L500.4050, L3410.2400, L501.9520, L100.0100 #### [facility] [address] [place], [address] Glucose [Mass/Vol] 96 mg/dL Normal 70-99 [facility] Comment on above: Performed By: #### L 501.6710, L500.4050, L3410.2400, L501.9520, L100.0100 #### [facility] [address] [place], [address] Potassium [Moles/Vol] 4.0 mmol/L Normal 3.3-5.1 [facility] Comment on above: Performed By: #### L 501.6710, L500.4050, L3410.2400, L501.9520, L100.0100 #### [facility] [address] [place], [address] Sodium [Moles/Vol] 140 mmol/L Normal 133-145 [facility] Comment on above: Performed By: #### L 501.6710, L500.4050, L3410.2400, L501.9520, L100.0100 #### [facility] [address] [place], [address] T PROT 8.0 g/dL Normal 5.9-8.4 [facility] Comment on above: Performed By: #### L 501.6710, L500.4050, L3410.2400, L501.9520, L100.0100 #### [facility] [address] [place], [address] Urea nitrogen [Mass/Vol] 11 mg/dL Normal 4-19 [facility] Comment on above: Performed By: #### L 501.6710, L500.4050, L3410.2400, L501.9520, L100.0100 #### [facility] [address] [place], [address] Eosinophil percentageOrdered By: Patience Mccrary on 09-24-2024 Eosinophils/100 WBC (Bld) 4.9 % 0-5 [facility] Erythrocyte distribution wid th ratioOrdered By: Patience Mccrary on 09-24-2024 Erythrocyte distribution width (RBC) [Ratio] 13.1 % 11.6-14.6 [facility] Erythrocyte distribution wid th standard deviationOrdered By: Patience Mccrary on 09-24-2024 Erythrocyte distribution width (RBC) [Ratio] 40.9 fl 35.1-43.9 [facility] Gastroenterology Visit Repor ton 09-24-2024 Gastroenterology Visit Report [facility] [address] [address] OFFICE VISIT Date of Service: 09/24/24 MR#: [id number] Acct: [id number] Name: SHWETA ARMENDARIZ Rep #: [id number] : 2000 Provider: TWILA kate Age/Sex: 23/F Location: [facility] [place] Status: Signed Intake Vital Signs 07/22/23 17:28 Height 5 ft 5 in Intake Visit Reasons: Diarrhea Allergies No Known Allergies Allergy (Verified 09/24/24 09:02) Medications ???Medication ???Instructions ???Recorded ???Confirmed ???Type NK 09/24/24 09/24/24 History PFSH Medical History Dyspepsia Right leg pain Generalized postprandial abdominal pain Diarrhea Surgical History Hx of cholecystectomy Hx of appendectomy Social History Smoking Status: Never smoker alcohol intake: never substance use type: does not use HPI HPI Details: SHWETA ARMENDARIZ, is a 23 F who presents to the office today for establishment with I for concerns regarding diarrhea and nausea. Hx:corie, appy. PCP provided pantoprazole 40mg twice daily and sucralfate 1gm QID x14d on 09.20.24. She states that she doesn't like to take medicines and just forgot to take those. She is 9wks from delivery of full term baby boy. She states that ever since the , I have urgent diarrhea after every time I eat. She denies noting a difference of food types that cause an increase in frequency. She denies noted weight loss and fecal incontinence. She denies any testing done for the diarrhea. She denies abdominal pain and bloating. She had cholecystectomy 06.04.23, but denies ever having bile-induced diarrhea. She states that her gallbladder was a problem so they took it out, didn't tell me if I had stones or sludge, or anything. She denies difficulty chewing and swallowing, cough, sinus drainage, throat clearing, heartburn, reflux, vomiting, constipation, hematochezia, and melena. She denies change in water source that [she] knows of and no travel out of the country. ROS Const Constitutional: No chills, fatigue, fever(s) or weight change Eyes Eyes: No blurry vision ENT ENT: No abnormal hearing or difficulty swallowing Resp Respiratory: No cough Cardio Cardiology: No chest pain at rest, chest pain with exertion or leg pain with exertion Gastro GI: Positive for diarrhea; No abdominal pain, belching, bloating, change in bowel habits, change in stool character, coffee ground emesis, constipation, cramping, heartburn, difficulty swallowing, feeling full early, excessive flatus, incontinent of stools, Vomiting blood/hematemesis, Blood in stool, loose stools, Black,tarry stools, nausea/dyspepsia, pain with swallowing, vomiting or other Genitourinary-Female: No difficulty urinating Musc Musculoskeletal: Positive for back pain, muscle weakness, numbness and tingling; No joint pain or leg pain with exertion Skin Skin: No yellowing of the eye or itchy eyes Neuro Neurology: Positive for numbness and tingling; No abnormal hearing Psych Psychiatric: No anxiety and No depression Endo Endocrine: No cold intolerance, fatigue, heat intolerance or weight change Aller/Imm Allergy/Immunologic: No food intolerance or itchy eyes Carlo/Lymp Hematologic/Lymphatic : No easy bleeding or easy bruising Exam Const General: cooperative, healthy appearing, comfortable and no acute distress Nutritional Appearance: overweight Orientation: alert and oriented x3 [facility] Head: normal to inspection Ears: hearing grossly normal bilaterally Nose: external nose normal Face and sinus: normal facial exam and face symmetric Mouth: oral mucosae normal Eyes General: appearance normal, both eyes and all related structures Sclera: sclerae normal Neck Neck: normal visual inspection and full ROM Chest Chest palpation inspection: normal inspection of the chest Resp Effort Inspection: normal respiratory effort, able to speak in complete sentences and symmetric chest movement GI Inspection: obesity Auscultation: normal bowel sounds Palpation: soft Skin General: no rashes or lesions noted Neuro General: patient alert, patient oriented x3 and moves all extremities Cognition: normal cognition Speech: speech normal Gait: normal gait Extrem General: full ROM Psych Appearance: well kempt Mental Status: mental status grossly normal Mood: congruent mood Affect: normal affect Speech and Movement: speech and movement normal Attitude: cooperative Thought Process: normal Judgment: judgment good Assessment and Plan Assessment and Plan (1) Diarrhea: Status: Acute Qualifiers: Diarrhea type: unspecified typ (more content not included)... Normal [facility] Glomerular filtration rate ( GFR) estimation/1.73 sq m using serum, plasma, or whole bOrdered By: Patience Mccrary on 09-24-2024 GFR/1.73 sq M.predicted among non-blacks MDRD (S/P/Bld) [Vol rate/Area] 117 mL/min/{1.73_m2} >60 [facility] Comment on above: mL/min/1.73m2 CKD-EP I Creatinine Equation (2020) Hematocrit Auto (Bld) [Volum e fraction]Ordered By: Patience Mccrary on 09-24-2024 Hematocrit (Bld) [Volume fraction] 42.4 % 37-47 [facility] Hemoglobin measurementOrdere d By: Patience Mccrary on 09-24-2024 Hemoglobin (Bld) [Mass/Vol] 14.1 g/dL 12.0-15.0 [facility] Immature granulocytes/100 WB C Auto (Bld)Ordered By: Patience Mccrary on 09-24-2024 Immature granulocytes/100 WBC (Bld) 0.600 % 0.0-0.9 [facility] Comment on above: IG% - Immature Granu locytes (promyelocytes, myelocytes and metamyelocytes) > 1% indicates that a LEFT SHIFT is Present. Laboratory - Chemistry and C hemistry - challengeOrdered By: Patience Mccrary on 09-24-2024 AST [Catalytic activity/Vol] 37 U/L High <32 [facility] MCV (mean corpuscular volume ) determinationOrdered By: Patience Mccrary on 09-24-2024 MCV (RBC) [Entitic vol] 86.4 fL 81-[address] [facility] Mean corpuscular hemoglobin (MCH) determinationOrdered By: Patience Mccrary on 09-24-2024 MCH (RBC) [Entitic mass] 28.7 pg 27.0-32.0 [facility] Mean corpuscular hemoglobin concentration (MCHC) determinationOrdered By: Patience Mccrary on 09-24-2024 MCHC (RBC) [Mass/Vol] 33.3 g/dL 32-36 [facility] Mean platelet volume determi nationOrdered By: Patience Mccrary on 09-24-2024 Platelet mean volume (Bld) [Entitic vol] 10.6 fL 6.2-12.0 [facility] Monocyte percentageOrdered B y: Patience Mccrary on 09-24-2024 Monocytes/100 WBC (Bld) 7.8 % 0-[address] [facility] Neutrophil percentageOrdered By: Patience Mccrary on 09-24-2024 Neutrophils/100 WBC (Bld) 52.2 % 47-70 [facility] Nucleated red blood cell per centageOrdered By: Patience Mccrary on 09-24-2024 Nucleated RBC/100 WBC (Bld) [Ratio] 0 % 0-5 [facility] Platelet countOrdered By: Jamie Mccrary on 09-24-2024 Platelets (Bld) [#/Vol] 353 10*3/uL 150-450 [facility] Potassium measurement (mass/ volume)Ordered By: Patience Mccrary on 09-24-2024 Potassium (Unsp spec) [Mass/Vol] 4.0 mmol/L 3.3-5.1 [facility] RBC Auto (Bld) [#/Vol]Ordere d By: Patience Mccrary on 09-24-2024 RBC (Bld) [#/Vol] 4.91 10*6/uL 4.2-5.4 [facility] Serum creatinine measurement (mass/volume)Ordered By: Patience Mccrary on 09-24-2024 Creatinine [Mass/Vol] 0.74 mg/dL 0.70-1.20 [facility] Serum globulin measurementOr dered By: Patience Mccrary on 09-24-2024 Globulin (S) [Mass/Vol] 3.5 g/dL 2.2-4.2 [facility] Serum glucose measurement (m ass/volume)Ordered By: Patience Mccrary on 09-24-2024 Glucose [Mass/Vol] 96 mg/dL 70-99 [facility] Serum or plasma C reactive p rotein measurement (mass/volume)Ordered By: Patience Mccrary on 09-24-2024 CRP [Mass/Vol] 3.89 mg/L High 0.0-3.0 [facility] Serum or plasma IgA measurem ent (mass/volume)Ordered By: Patience Mccrary on 09-24-2024 IgA [Mass/Vol] 183 mg/dL 87-352 [facility] Comment on above: Performed at: [address] [id number] Director: Aaron French PhD, Phone: [phone] Serum or plasma alanine guzman otransferase (ALT) measurementOrdered By: Patience Mccrary on 09-24-2024 ALT [Catalytic activity/Vol] 48 U/L High <35 [facility] Serum or plasma albumin sue urement (mass/volume)Ordered By: Patience Mccrary on 09-24-2024 Albumin [Mass/Vol] 4.5 g/dL 3.5-5.0 [facility] Serum or plasma albumin/glob ulin mass ratioOrdered By: Patience Mccrary on 09-24-2024 Albumin/Globulin [Mass ratio] 1.3 {ratio} 0.9-2.4 [facility] Serum or plasma alkaline judy sphatase measurementOrdered By: Patience Mccrary on 09-24-2024 ALP [Catalytic activity/Vol] 102 U/L 35-104 [facility] Serum or plasma calcium sue urement (mass/volume)Ordered By: Patience Mccrary on 09-24-2024 Calcium [Mass/Vol] 9.7 mg/dL 7.6-11.0 [facility] Serum or plasma urea nitroge n measurement (mass/volume)Ordered By: Patience Mccrary on 09-24-2024 Urea nitrogen [Mass/Vol] 11 mg/dL 4-19 [facility] Serum tissue transglutaminas e (tTG) IgA antibody assay (units/volume)Ordered By: Patience Mccrray on 09-24-2024 tTG IgA Qn (S) <2 U/mL 0-3 [facility] Comment on above: Negative 0 - 3 Weak Positive 4 - 10 Positive >10 Tissue Transglutaminase (tTG) has been identified as the endomysial antigen. Studies have demonstr- ated that endomysial IgA antibodies have over 99% specificity for gluten sensitive enteropathy. Sodium levelOrdered By: Jumana Mccrary on 09-24-2024 Sodium [Moles/Vol] 140 mmol/L 133-145 [facility] Stool pancreatic elastase me asurement (mass/mass)Ordered By: Patience Mccrary on 09-24-2024 Elastase.pancreatic (Stl) [Mass/Mass] > 800 >200 [facility] Comment on above: Result Units: ug Abigail st./g Severe Pancreatic Insufficiency: <100 Moderate Pancreatic Insufficiency: 100 - 200 Normal: >200Performed at: [facility] [address] [id number] Director: Raymond Charles MD, Phone: [phone] TSH DL <= 0.005 mIU/L QnOrde red By: Patience Mccrary on 09-24-2024 TSH Qn 0.741 uIU/mL 0.300-4.200 [facility] Thyroid Stim Hormone (TSH)on 09-24-2024 TSH 0.741 uIU/mL Normal 0.300-4.200 [facility] Comment on above: Performed By: #### L 501.6710, L500.4050, L3410.2400, L501.9520, L100.0100 #### [facility] Laboratory [address] [place], [address] Total proteinOrdered By: Mulugeta Mccrary on 09-24-2024 Protein [Mass/Vol] 8.0 g/dL 5.9-8.4 [facility] White blood cell (WBC) count Ordered By: Patience Mccrary on 09-24-2024 WBC (Bld) [#/Vol] 7.2 10*3/uL 4.4-11.0 [facility] CV VENOUS LEG RTon CV VENOUS LEG RT [place] [address] Patient: SHWETA ARMENDARIZ Phone#: : [phone] Age: 23 Gender: F Pt. Type: Out Account: [id number] Location: [facility] Ordering: ISAURA MOSESLER Exam Date: 08/26/2024/11:11 Family Phys: Charge Code: 421474 Physician: [place] Order #: [id number] Dose#: PROCEDURE: VENOUS DOPPLER RT LEG COMPARISON: [facility], , VENOUS DOPPLER RT LEG, 07/09/2024, 14:09. INDICATIONS: PAIN TECHNIQUE: Color duplex Doppler ultrasound evaluation analysis was performed in the usual manner. PRESIDING JUDGE: MARCUS DANG RVT [facility] RISK FACTORS FOR VENOUS DISEASE: Other Leg pain EXAMINATION: RIGHT +Present -Reduced o Absent LEFT SPONT PHASIC AUG REFLUX COMP SPONT PHASIC AUG REFLUX COM + + + o + CFV + + + o + + SFJ + + + o + FV (prox) + FV (mid) + FV (dist) + + + o + POP V + + + o + T/P TRUNK + + + o + PTV + + + o + PERONEAL V + GSV GASTROC SOLEAL V PRESIDING JUDGE'S NOTES: FINDINGS: THROMBI: None visible. Continued Report - Page 2 of 2 Patient: SHWETA ARMENDARIZ Phone#: : [phone] Age: 23 Gender: F Pt. Type: Out Account: [id number] Location: 014 Ordering: ISAURA SENIA Exam Date: 08/26/2024/11:11 Family Phys: Charge Code: [id number] Physician: [place] Order #: [id number] Dose#: COMPRESSIBILITY: Normal. OTHER: Negative. CONCLUSION: 1. No evidence of deep venous thrombosis in the right lower extremity Dictated by: Apoorva Rangel MD on 08/26/2024 at 12:57 Approved by: Apoorva Rangel MD on 08/26/2024 at 12:59 Normal [facility] CBC + DIFFon 07-22-2024 Baso # 0.03 x10EE3/UL Normal 0.00 - 0.10 [facility] Comment on above: Performed By: #### 2 55647 #### [facility],[address] [place] [address] Basophils/100 WBC (Bld) 0.2 % Normal 0.0 - 2.0 % [facility] Comment on above: Performed By: #### 2 43287 #### [facility],[address] [place] [address] CBC + DIFF Normal [facility] Comment on above: Result Comment: CBC- COMPLETE BLOOD COUNT Performed By: #### 2 66237 #### [facility],[address] [place] [address] EO # 0.16 x10EE3/UL Normal 0.00 - 0.50 [facility] Comment on above: Performed By: #### 2 95132 #### [place] [address] Eosinophils/100 WBC (Bld) 1.1 % Normal 0.0 - 7.0 % [facility] Comment on above: Performed By: #### 2 77573 #### [place] [address] Erythrocyte distribution width (RBC) [Ratio] 13.5 % Normal 12.0 - 15.6 % [facility] Comment on above: Performed By: #### 2 62760 #### [place] [address] Hematocrit (Bld) [Volume fraction] 31.8 % Abnormal 34.0 - 46.0 % [facility] Comment on above: Performed By: #### 2 12489 #### [facility],[address] [place] [address] Hemoglobin (Bld) [Mass/Vol] 10.9 g/dL Abnormal 12.0 - 16.0 g/dL [facility] Comment on above: Performed By: #### 2 79752 #### [place] [address] Lymph # 1.86 x10EE3/UL Normal 0.80 - 2.80 [facility] Comment on above: Performed By: #### 2 19823 #### [facility],[address] [place] [address] Lymphocytes/100 WBC (Bld) 13.1 % Abnormal 20.0 - 45.0 % [facility] Comment on above: Performed By: #### 2 04324 #### [facility],[address] [place] [address] MANUAL DIFF N/A Normal [facility] Comment on above: Performed By: #### 2 83304 #### [facility],[address] [place] [address] MCH (RBC) [Entitic mass] 31 pg Normal 27 - 33 pg [facility] Comment on above: Performed By: #### 2 07737 #### [place] [address] MCHC 34 X10 3 Normal 32 - 36 [facility] Comment on above: Performed By: #### 2 79224 #### [place] [address] MCV (RBC) [Entitic vol] 90 fL Normal 80 - 99 fL J l [facility] Comment on above: Performed By: #### 2 20308 #### [place] [address] Deuel # 0.87 x10EE3/UL Normal 0.20 - 1.00 [facility] Comment on above: Performed By: #### 2 87756 #### [place] [address] MONOS % 6.1 % Normal 0.0 - 10.0 [facility] Comment on above: Performed By: #### 2 00322 #### [place] [address] Morphology Elder (Bld) [Interp] N/A Normal [facility] Comment on above: Performed By: #### 2 44191 #### [place] [address] Neut # 11.29 x10EE3/UL High 1.50 - 7.10 [facility] Comment on above: Performed By: #### 2 76042 #### [facility],[address] [place], [place] [address] Neutrophils/100 WBC (Bld) 79.4 % Abnormal 46.0 - 76.0 % [facility] Comment on above: Performed By: #### 2 08961 #### [facility],[address] [place] [address] PLATELET 251 x10EE3/UL Normal 150 - 450 [facility] Comment on above: Performed By: #### 2 41847 #### [facility],[address] [place] [address] Platelet mean volume (Bld) [Entitic vol] 8.7 fL Normal 6.6 - 10.5 fL [facility] Comment on above: Result Comment: AUTO MATED DIFFERENTIAL Performed By: #### 2 08062 #### [facility],[address] [place], [place] [address] RBC 3.54 x 10EE6/UL Low 4.10 - 5.30 [facility] Comment on above: Performed By: #### 2 19196 #### [facility],[address] [place], [place] [address] WBC 14.2 x 10EE3/UL High 4.5 - 10.8 [facility] Comment on above: Performed By: #### 2 87813 #### [facility],[address] [place], [place] [address] Laboratory - Hematology and Cell countson 07-22-2024 Basophils (Bld) [#/Vol] 0.03 {3/UL} Normal 0.00 - 0.10 {3/UL} [facility], [employer] [facility]. Work Phone: CBC W Auto Differential panel (Bld) CBC + DIFF Normal [facility].; [employer] [facility] Work Phone: Eosinophils (Bld) [#/Vol] 0.16 {3/UL} Normal 0.00 - 0.50 {3/UL} [facility].; [employer]. Work Phone: Lymphocytes (Bld) [#/Vol] 1.86 {3/UL} Normal 0.80 - 2.80 {3/UL} [facility].; [employer]. Work Phone: MCHC (RBC) [Mass/Vol] 34 {X10_3} Normal 32 - 3 6 {X10_3} [facility] [employer] [facility].; [employer]. Work Phone: Monocytes (Bld) [#/Vol] 0.87 {3/UL} Normal 0.20 - 1.00 {3/UL} [facility].; [employer]. Work Phone: Monocytes/100 WBC (Bld) 6.1 % Normal 0.0 - 10.0 % [facility].; [employer]. Work Phone: Neutrophils (Bld) [#/Vol] 11.29 {3/UL} Abnormal 1.50 - 7.10 {3/UL} [place] [employer].; [employer], [employer] Work Phone: Platelets (Bld) [#/Vol] 251 {3/UL} Normal 150 - 450 {3/UL} [place] [employer] [facility].; [employer]. Work Phone: RBC (Bld) [#/Vol] 3.54 {6/UL} Abnormal 4.10 - 5.3 0 {6/UL} [employer].; [employer], [employer]. Work Phone: WBC (Bld) [#/Vol] 14.2 {3/UL} Abnormal 4.5 - 10.8 {3/UL} [place] [employer].; [employer]. Work Phone: CBC + DIFFon 07-21-2024 Baso # 0.06 x10EE3/UL Normal 0.00 - 0.10 [facility] Comment on above: Performed By: #### 2 91686 ####[facility],[address] [place], [place] [address] Basophils/100 WBC (Bld) 0.3 % Normal 0.0 - 2.0 % [facility] Comment on above: Performed By: #### 2 53362 ####[facility],[address] [place] [address] CBC + DIFF Normal [facility] Comment on above: Result Comment: CBC- COMPLETE BLOOD COUNT Performed By: #### 2 13973 ####[facility],[address] [place] [address] EO # 0.07 x10EE3/UL Normal 0.00 - 0.50 [facility] Comment on above: Performed By: #### 2 13451 ####[facility],[address] [place] [address] Eosinophils/100 WBC (Bld) 0.4 % Normal 0.0 - 7.0 % [facility] Comment on above: Performed By: #### 2 61133 ####[facility],[address] [place] [address] Erythrocyte distribution width (RBC) [Ratio] 13.3 % Normal 12.0 - 15.6 % [facility] Comment on above: Performed By: #### 2 62022 ####[facility],[address] [place] [address] Hematocrit (Bld) [Volume fraction] 33.0 % Abnormal 34.0 - 46.0 % [facility] Comment on above: Performed By: #### 2 75214 ####[facility],[address] [place] [address] Hemoglobin (Bld) [Mass/Vol] 11.2 g/dL Abnormal 12.0 - 16.0 g/dL [facility] Comment on above: Performed By: #### 2 17623 ####[facility],[address] [place] [address] Lymph # 1.23 x10EE3/UL Normal 0.80 - 2.80 [facility] Comment on above: Performed By: #### 2 43466 ####[facility],[address] [place] [address] Lymphocytes/100 WBC (Bld) 7.4 % Abnormal 20.0 - 45.0 % [facility] Comment on above: Performed By: #### 2 06202 ####[facility],[address] [place] [address] MANUAL DIFF N/A Normal [facility] Comment on above: Performed By: #### 2 77637 ####[facility],[address] [place], [place] [address] MCH (RBC) [Entitic mass] 30 pg Normal 27 - 33 pg [facility] Comment on above: Performed By: #### 2 77677 ####[facility],[address] [place] [address] MCHC 34 X10 3 Normal 32 - 36 [facility] Comment on above: Performed By: #### 2 97671 ####[facility],[address] [place] [address] MCV (RBC) [Entitic vol] 88 fL Normal 80 - 99 fL [facility] Comment on above: Performed By: #### 2 27425 ####[facility],[address] [place] [address] Deuel # 0.87 x10EE3/UL Normal 0.20 - 1.00 [facility] Comment on above: Performed By: #### 2 32361 ####[facility],[address] [place] [address] MONOS % 5.2 % Normal 0.0 - 10.0 [facility] Comment on above: Performed By: #### 2 75770 ####[facility],[address] [place] [address] Morphology Elder (Bld) [Interp] N/A Normal [facility] Comment on above: Performed By: #### 2 68250 ####[facility],[address] [place] [address] Neut # 14.53 x10EE3/UL High 1.50 - 7.10 [facility] Comment on above: Performed By: #### 2 06891 ####[facility],[address] [place] [address] Neutrophils/100 WBC (Bld) 86.7 % Abnormal 46.0 - 76.0 % [facility] Comment on above: Performed By: #### 2 08039 ####[facility],[address] [place] [address] PLATELET 244 x10EE3/UL Normal 150 - 450 [facility] Comment on above: Performed By: #### 2 40899 ####[facility],[address] [place] [address] Platelet mean volume (Bld) [Entitic vol] 8.1 fL Normal 6.6 - 10.5 fL [facility] Comment on above: Result Comment: AUTO MATED DIFFERENTIAL Performed By: #### 2 72008 ####[facility],[address] [place] [address] RBC 3.73 x 10EE6/UL Low 4.10 - 5.30 [facility] Comment on above: Performed By: #### 2 98933 ####[facility],[address] [place] [address] WBC 16.8 x 10EE3/UL High 4.5 - 10.8 [facility] Comment on above: Performed By: #### 2 90444 ####[facility],[address] [place] [address] Laboratory - Hematology and Cell countson 07-21-2024 Basophils (Bld) [#/Vol] 0.06 {3/UL} Normal 0.00 - 0.10 {3/UL} [facility]; [place] [employer] Work Phone: CBC W Auto Differential panel (Bld) CBC + DIFF Normal [facility]; [place] [employer] Work Phone: Eosinophils (Bld) [#/Vol] 0.07 {3/UL} Normal 0.00 - 0.50 {3/UL} [facility].; [place] [employer]. Work Phone: Lymphocytes (Bld) [#/Vol] 1.23 {3/UL} Normal 0.80 - 2.80 {3/UL} [facility].; [place] [employer] Work Phone: MCHC (RBC) [Mass/Vol] 34 {X10_3} Normal 32 - 3 6 {X10_3} [facility]; [employer]. Work Phone: Monocytes (Bld) [#/Vol] 0.87 {3/UL} Normal 0.20 - 1.00 {3/UL} [facility].; [place] [employer]. Work Phone: Monocytes/100 WBC (Bld) 5.2 % Normal 0.0 - 10.0 % [facility]; [place] [employer]. Work Phone: Neutrophils (Bld) [#/Vol] 14.53 {3/UL} Abnormal 1.50 - 7.10 {3/UL} [facility].; [place] [employer]. Work Phone: Platelets (Bld) [#/Vol] 244 {3/UL} Normal 150 - 450 {3/UL} [facility].; [place] [employer]. Work Phone: RBC (Bld) [#/Vol] 3.73 {6/UL} Abnormal 4.10 - 5.3 0 {6/UL} [facility].; [facility]. Work Phone: WBC (Bld) [#/Vol] 16.8 {3/UL} Abnormal 4.5 - 10.8 {3/UL} [facility].; [facility] Work Phone: BB TYPE & SCREENon 5 ABO O Normal [facility] Comment on above: Performed By: #### 2 14374 ####[facility],[address] [place] [address] ANTIBODY SCR Negative Normal [facility] Comment on above: Performed By: #### 2 07626 ####[facility],[address] [place] [address] BB TYPE & SCREEN Normal [facility] Comment on above: Result Comment: TYPE , Rh, AND SCREEN Performed By: #### 2 12715 ####[facility],[address] [place] [address] Rh Nom (Bld) Positive Normal [facility] Comment on above: Performed By: #### 2 39523 ####[facility],[address] [place] [address] CBC + DIFFon 07-19-2024 Baso # 0.08 x10EE3/UL Normal 0.00 - 0.10 [facility] Comment on above: Performed By: #### 2 75998 #### [facility],[address] [place] [address] Basophils/100 WBC (Bld) 0.6 % Normal 0.0 - 2.0 % [facility] Comment on above: Performed By: #### 2 09346 #### [facility],[address] [place] [address] CBC + DIFF Normal [facility] Comment on above: Result Comment: CBC- COMPLETE BLOOD COUNT Performed By: #### 2 30905 #### [facility],[address] [place] [address] EO # 0.22 x10EE3/UL Normal 0.00 - 0.50 [facility] Comment on above: Performed By: #### 2 46406 #### [facility],[address] [place] [address] Eosinophils/100 WBC (Bld) 1.6 % Normal 0.0 - 7.0 % [facility] Comment on above: Performed By: #### 2 18610 #### [facility],[address] [place] [address] Erythrocyte distribution width (RBC) [Ratio] 13.2 % Normal 12.0 - 15.6 % [facility] Comment on above: Performed By: #### 2 53675 #### [place] [address] Hematocrit (Bld) [Volume fraction] 37.6 % Normal 34.0 - 46.0 % [facility] Comment on above: Performed By: #### 2 80269 #### [facility],[address] [place] [address] Hemoglobin (Bld) [Mass/Vol] 13.0 g/dL Normal 12.0 - 16.0 g/dL [facility] Comment on above: Performed By: #### 2 84167 #### [facility],[address] [place], [place] [address] Lymph # 2.57 x10EE3/UL Normal 0.80 - 2.80 [facility] Comment on above: Performed By: #### 2 79220 #### [place] [id number] Lymphocytes/100 WBC (Bld) 19.0 % Abnormal 20.0 - 45.0 % [facility] Comment on above: Performed By: #### 2 26167 #### [place] [address] MANUAL DIFF N/A Normal [facility] Comment on above: Performed By: #### 2 84127 #### [facility],[address] [place] [address] MCH (RBC) [Entitic mass] 31 pg Normal 27 - 33 pg [facility] Comment on above: Performed By: #### 2 70893 #### [facility],[address] [place] [address] MCHC 35 X10 3 Normal 32 - 36 [facility] Comment on above: Performed By: #### 2 31327 #### [facility],[address] [place] [address]83[address] MCV (RBC) [Entitic vol] 89 fL Normal 80 - 99 fL J l [facility] Comment on above: Performed By: #### 2 54536 #### [facility],[address] [place] [address] Deuel # 0.95 x10EE3/UL Normal 0.20 - 1.00 [facility] Comment on above: Performed By: #### 2 84720 #### [facility],[address] [place] [address] 50027 MONOS % 7.0 % Normal 0.0 - 10.0 [facility] Comment on above: Performed By: #### 2 99568 #### [facility],[address] [place] [address]15[address] Morphology Elder (Bld) [Interp] N/A Normal [facility] Comment on above: Performed By: #### 2 95743 #### [address] [address] Neut # 9.72 x10EE3/UL High 1.50 - 7.10 [facility] Comment on above: Performed By: #### 2 31740 #### [facility],[address] [place], [place] [address] Neutrophils/100 WBC (Bld) 71.8 % Normal 46.0 - 76.0 % [facility] Comment on above: Performed By: #### 2 36860 #### [facility],[address] [place] [address] PLATELET 295 x10EE3/UL Normal 150 - 450 [facility] Comment on above: Performed By: #### 2 50226 #### [facility],[address] [place] [address] Platelet mean volume (Bld) [Entitic vol] 8.8 fL Normal 6.6 - 10.5 fL [facility] Comment on above: Result Comment: AUTO MATED DIFFERENTIAL Performed By: #### 2 99917 #### [facility],[address] [place] [address] RBC 4.25 x 10EE6/UL Normal 4.10 - 5.30 [facility] Comment on above: Performed By: #### 2 24486 #### [facility],[address] [place] [address] WBC 13.5 x 10EE3/UL High 4.5 - 10.8 [facility] Comment on above: Performed By: #### 2 83276 #### [facility],[address] [place] [address] Laboratory - Blood bankon ABO group Nom (Bld) O Normal [facility]; [facility] Work Phone: Blood group antibody screen Ql Negative Normal [facility]; [facility] Work Phone: Blood type and Indirect antibody screen panel (Bld) Normal [facility]; [facility] Work Phone: Laboratory - Hematology and Cell countson 07-19-2024 Basophils (Bld) [#/Vol] 0.08 {3/UL} Normal 0.00 - 0.10 {3/UL} [facility]; [facility] Work Phone: CBC W Auto Differential panel (Bld) CBC + DIFF Normal [facility].; [place] [employer] [facility]. Work Phone: Eosinophils (Bld) [#/Vol] 0.22 {3/UL} Normal 0.00 - 0.50 {3/UL} [facility].; [place] [employer]. Work Phone: Lymphocytes (Bld) [#/Vol] 2.57 {3/UL} Normal 0.80 - 2.80 {3/UL} [facility].; [place] [employer] [facility]. Work Phone: MCHC (RBC) [Mass/Vol] 35 {X10_3} Normal 32 - 3 6 {X10_3} [facility].; [place] [employer]. Work Phone: Monocytes (Bld) [#/Vol] 0.95 {3/UL} Normal 0.20 - 1.00 {3/UL} [facility].; [place] [employer]. Work Phone: Monocytes/100 WBC (Bld) 7.0 % Normal 0.0 - 10.0 % [facility].; [place] [employer] Work Phone: Neutrophils (Bld) [#/Vol] 9.72 {3/UL} Abnormal 1.50 - 7.10 {3/UL} [facility].; [employer]. Work Phone: Platelets (Bld) [#/Vol] 295 {3/UL} Normal 150 - 450 {3/UL} [place] [employer] [facility].; [employer]. Work Phone: RBC (Bld) [#/Vol] 4.25 {6/UL} Normal 4.10 - 5.3 0 {6/UL} [place] [employer] [facility].; [employer]. Work Phone: WBC (Bld) [#/Vol] 13.5 {3/UL} Abnormal 4.5 - 10.8 {3/UL} [facility].; [employer]. Work Phone: Laboratory - Urinalysison Glucose Test strip (U) [Mass/Vol] Negative Normal [facility] [employer].; [employer]. Protein Ql (U) Negative Normal [facility].; [place] [employer]. CV VENOUS LEG RTon CV VENOUS LEG RT [place] [address] Patient: SHWETA ARMENDARIZ Phone#: : [phone] Age: 23 Gender: F Pt. Type: Out Account: [id number] Location: 014 Ordering: ISAURA CONN Exam Date: 07/09/2024:09 [facility] Phys: Charge Code: [id number] Physician: [place] Order #: [id number] Dose#: PROCEDURE: VENOUS DOPPLER RT LEG COMPARISON: None. INDICATIONS: PAIN IN LEG TECHNIQUE: Color duplex Doppler ultrasound evaluation analysis was performed in the usual manner. PRESIDING JUDGE: PAMELA HAMEED RVT [facility] RISK FACTORS FOR VENOUS DISEASE: 37 weeks EXAMINATION: RIGHT +Present -Reduced o Absent LEFT SPONT PHASIC AUG REFLUX COMP SPONT PHASIC AUG REFLUX COMP + + + o + CFV + + + o + + SFJ + + + o + FV (prox) + FV (mid) + FV (dist) + + + o + POP V + + + o + T/P TRUNK + + + o + PTV + + + o + PERONEAL V + GSV GASTROC SOLEAL V PRESIDING JUDGE'S NOTES: Veins are slightly dilated with sluggish flow noted and difficult to compress, good color fill and normal augmentation was however noted. FINDINGS: Continued Report - Page 2 of 2 Patient: SHWETA ARMENDARIZ Phone#: : [phone] Age: 23 Gender: F Pt. Type: Out Account: [id number] Location: 014 Ordering: ISAURA CONN Exam Date: 07/09/2024/14:09 Family Phys: Charge Code: [id number] Physician: [place] Order #: [id number] Dose#: THROMBI: The common femoral veins and right saphenofemoral junction are ectatic. There is sluggish flow without evidence of thrombus. There is no other evidence of superficial or deep vein thrombus. COMPRESSIBILITY: Normal. OTHER: Negative. CONCLUSION: 1. There is no evidence of superficial or deep vein thrombus. 2. The common femoral veins are ectatic with sluggish flow bilaterally. Dictated by: Cris Leo MD on 07/09/2024 at 14:38 Approved by: Cris Leo MD on 07/09/2024 at 14:40 Normal [facility] STREPTOCOCCUS, GROUP B CULTU REon 07-03-2024 STREPTOCOCCUS, GROUP B CULTURE SEE NOTE Normal [facility] Comment on above: Result Comment: STREPTOCOCCUS, GROUP B CULTURE Micro Number: [id number] Test Status: Final Specimen Source: Vaginal/anorectal Specimen Quality: Adequate Result: No group B Streptococcus isolated Note per CDC guidelines optimal recovery is achieved by swabbing both the lower vagina and rectum (through the anal sphincter). Performed By: #### 5 617 #### [facility]-[address], [address] [place] [id number] Inspector Filters: Jimenez Benavides MD Laboratory - Urinalysison Glucose Test strip (U) [Mass/Vol] Negative Normal [employer] Protein Ql (U) Negative Normal [facility] [employer] No Panel Informationon 06-30 STREPTOCOCCUS, GROUP B CULTURE SEE NOTE Normal [employer] Laboratory - Urinalysison Glucose Test strip (U) [Mass/Vol] Negative Normal [employer], [employer] Protein Ql (U) Negative Normal [facility] [employer], [employer] Laboratory - Urinalysison Glucose Test strip (U) [Mass/Vol] Negative Normal [employer], [employer] Protein Ql (U) Negative Normal [facility] [employer].; [employer], [employer] GLUCOSE, GESTATIONAL SCREEN (50G)-135 CUTOFFon 04-22-2024 Glucose [Mass/Vol] 110 mg/dL Normal <135 [facility] Comment on above: Performed By: #### 5 , 2577 #### [facility] [address], [address] [place], [place] [id number] Inspector Filters: Jimenez Benavides MD HEMOGLOBINon 04-22-2024 Hemoglobin (Bld) [Mass/Vol] 12.5 g/dL Normal 11.7-15.5 [facility] Comment on above: Performed By: #### 5 6742 #### [facility] [address], [address] [place] [address] Inspector Filters: Jimenez Benavides MD Laboratory - Chemistry and C hemistry - challengeon 04-21-2024 Glucose [Mass/Vol] 110 mg/dL Normal [employer] Laboratory - Hematology and Cell countson 04-21-2024 Hemoglobin (Bld) [Mass/Vol] 12.5 g/dL Normal 11.7 - 15.5 g/dL [employer], [employer] Laboratory - Urinalysison Glucose Test strip (U) [Mass/Vol] Negative Normal [place].; [employer], [employer] Protein Ql (U) Negative Normal [facility].; [employer], [employer] URINE CULTURE [CCL]on 2023 Bacteria identified Cx Nom (U) URCUL See Results Below See Below CULTURE, URINE NORMAL [facility] [place] 10,000 -<50,000 CFU/ml Normal [facility] [place] SOURCE: Urine (Nonspecific) [place] [address] Mihir Lopez III, M.D. [id number] SEND TO IC NO Normal [facility] Comment on above: Performed By: #### 2 09777 ####[facility],[address] [place] [address] CBC + DIFFon 04-12-2024 Baso # 0.04 x10EE3/UL Normal 0.00 - 0.10 [facility] Comment on above: Performed By: #### 2 03003 #### [facility],[address] [place] [address] Basophils/100 WBC (Bld) 0.3 % Normal 0.0 - 2.0 % [facility] Comment on above: Performed By: #### 2 81860 #### [facility],[address] [place] [address] CBC + DIFF Normal [facility] Comment on above: Result Comment: CBC- COMPLETE BLOOD COUNT Performed By: #### 2 96835 #### [facility],[address] [place] [address] EO # 0.12 x10EE3/UL Normal 0.00 - 0.50 [facility] Comment on above: Performed By: #### 2 72903 #### [facility],[address] [place] [address] Eosinophils/100 WBC (Bld) 0.9 % Normal 0.0 - 7.0 % [facility] Comment on above: Performed By: #### 2 26557 #### [facility],[address] [place] [address] Erythrocyte distribution width (RBC) [Ratio] 13.2 % Normal 12.0 - 15.6 % [facility] Comment on above: Performed By: #### 2 74090 #### [facility],[address] [place] [address] Hematocrit (Bld) [Volume fraction] 38.2 % Normal 34.0 - 46.0 % [facility] Comment on above: Performed By: #### 2 55201 #### [facility],[address] [place] [address] Hemoglobin (Bld) [Mass/Vol] 13.2 g/dL Normal 12.0 - 16.0 g/dL [facility] Comment on above: Performed By: #### 2 83517 #### [facility],[address] [place] [address] Lymph # 1.82 x10EE3/UL Normal 0.80 - 2.80 [facility] Comment on above: Performed By: #### 2 99071 #### [facility],[address] [place] [address] Lymphocytes/100 WBC (Bld) 12.6 % Abnormal 20.0 - 45.0 % [facility] Comment on above: Performed By: #### 2 13167 #### [facility],[address] [place] [address] MANUAL DIFF N/A Normal [facility] Comment on above: Performed By: #### 2 38402 #### [facility],[address] [place] [address] MCH (RBC) [Entitic mass] 30 pg Normal 27 - 33 pg [facility] Comment on above: Performed By: #### 2 58782 #### [facility],[address] [place] [address] MCHC 35 X10 3 Normal 32 - 36 [facility] Comment on above: Performed By: #### 2 71939 #### [facility],[address] [place] [address] MCV (RBC) [Entitic vol] 88 fL Normal 80 - 99 fL [facility] Comment on above: Performed By: #### 2 90705 #### [facility],[address] [place] [address] Deuel # 0.51 x10EE3/UL Normal 0.20 - 1.00 [facility] Comment on above: Performed By: #### 2 74687 #### [facility],[address] [place] [address] MONOS % 3.5 % Normal 0.0 - 10.0 [facility] Comment on above: Performed By: #### 2 57632 #### [facility],[address] [place] [address] Morphology Elder (Bld) [Interp] N/A Normal [facility] Comment on above: Performed By: #### 2 69885 #### [facility],[address] [place] [address] Neut # 12.02 x10EE3/UL High 1.50 - 7.10 [facility] Comment on above: Performed By: #### 2 36724 #### [place] [address] Neutrophils/100 WBC (Bld) 82.8 % Abnormal 46.0 - 76.0 % [facility] Comment on above: Performed By: #### 2 91449 #### [facility],[address] [place] [address] PLATELET 259 x10EE3/UL Normal 150 - 450 [facility] Comment on above: Performed By: #### 2 57872 #### [facility],[address] [place] [address] Platelet mean volume (Bld) [Entitic vol] 8.6 fL Normal 6.6 - 10.5 fL [facility] Comment on above: Result Comment: AUTO MATED DIFFERENTIAL Performed By: #### 2 64911 #### [facility],[address] [place], [place] [id number] RBC 4.33 x 10EE6/UL Normal 4.10 - 5.30 [facility] Comment on above: Performed By: #### 2 08437 #### [place] [address] WBC 14.5 x 10EE3/UL High 4.5 - 10.8 [facility] Comment on above: Performed By: #### 2 44255 #### [facility],[address] [place] [address] CMP with eGFRon 04-12-2024 AGE 23 years Normal [facility] Comment on above: Performed By: #### 2 44526 ####[facility],[address] [place] [address] Albumin [Mass/Vol] 3.1 g/dL Abnormal 3.4 - 5.0 g/dL [facility] Comment on above: Performed By: #### 2 11204 ####[facility],[address] [place] [address] Albumin/Globulin [Mass ratio] 0.6 {ratio} Low 0.9 - 1.6 [facility] Comment on above: Performed By: #### 2 01520 ####[facility],[address] [place] [address] ALK PHOS 77 U/L Normal 46 - 116 [facility] Comment on above: Performed By: #### 2 53486 ####[facility],[address] [place] [address] ALT [Catalytic activity/Vol] 15 U/L Abnormal 16 - 63 U/L [facility] Comment on above: Performed By: #### 2 41011 ####[facility],[address] [place] [address] Anion gap [Moles/Vol] 18 mmol/L Normal 10 - 2 0 mmol/L [facility] Comment on above: Performed By: #### 2 72312 ####[facility],[address] [place] [address] AST [Catalytic activity/Vol] 14 U/L Normal 13 - 39 U/L [facility] Comment on above: Performed By: #### 2 13651 ####[facility],[address] [place] [address] B/C RATIO 8 ratio Normal 0 - 30 [facility] Comment on above: Performed By: #### 2 10003 ####[facility],[address] [place] [address] Bilirubin [Mass/Vol] 0.3 mg/dL Normal 0.2 - 1 .0 mg/dL [facility] Comment on above: Performed By: #### 2 22703 ####[facility],[address] [place] [address] Calcium [Mass/Vol] 9.5 mg/dL Normal 8.5 - 10. 1 mg/dL [facility] Comment on above: Performed By: #### 2 29109 ####[facility],[address] [place] [address] Chloride [Moles/Vol] 104 mmol/L Normal 98 - 10 7 mmol/L [facility] Comment on above: Performed By: #### 2 98900 ####[facility],[address] [place] [address] CMP with eGFR Normal [facility] Comment on above: Result Comment: COMP REHENSIVE METABOLIC PANEL Performed By: #### 2 62287 ####[facility],[address] [place] [address]14[address] CO2 [Moles/Vol] 23.0 mmol/L Normal 21.0 - 32.0 mmol/L [facility] Comment on above: Performed By: #### 2 09319 ####[facility],[address] [place] [address]02 Creatinine [Mass/Vol] 0.77 mg/dL Normal 0.55 - 1.02 mg/dL [facility] Comment on above: Performed By: #### 2 56813 ####[facility],[address] [place] [address] GFR/1.73 sq M.predicted among non-blacks MDRD (S/P/Bld) [Vol rate/Area] mL/min/{1.73_m2} Normal 60 - 999 [facility] Comment on above: Performed By: #### 2 00541 ####[place] [address] Result Comment: ACCO RDING TO THE NATIONAL KIDNEY DISEASE EDUCATION PROGRAM(NKDE), A NORMAL eGFR IS A VALUE GREATER THAN OR EQUAL TO 60 ML/MIN/1.73 SQ METERS. CHRONIC KIDNEY DISEASE: <60mL/MIN/1.73 SQ METERS KIDNEY FAILURE: <15mL/MIN/1.73 SQ METERS THIS TEST SHOULD ONLY BE USED FOR PATIENTS 18 YEARS OF AGE AND OLDER. Globulin (S) [Mass/Vol] 4.9 g/dL Abnormal 1.5 - 3.8 g/dL [facility] Comment on above: Performed By: #### 2 19678 ####[place] [address] Glucose [Mass/Vol] 83 mg/dL Normal 74 - 106 mg/dL [facility] Comment on above: Performed By: #### 2 12712 ####[place] [address] Potassium [Moles/Vol] 4.1 mmol/L Normal 3.5 - 5.1 mmol/L [facility] Comment on above: Performed By: #### 2 76434 ####[place] [address] Protein [Mass/Vol] 8.0 g/dL Normal 6.4 - 8.2 g/dL [facility] Comment on above: Performed By: #### 2 42717 ####[place] [id number] Sodium [Moles/Vol] 141 mmol/L Normal 136 - 145 mmol/L [facility] Comment on above: Performed By: #### 2 60606 ####[place] [address] Urea nitrogen [Mass/Vol] 6 mg/dL Abnormal 7 - 18 mg/dL [facility] Comment on above: Performed By: #### 2 62584 ####[place] [address] Laboratory - Chemistry and C hemistry - challengeon 04-12-2024 Albumin [Mass/Vol] 0.6 g/dL Abnormal 0.9 - 1.6 [facility]; [facility]. Work Phone: ALP [Catalytic activity/Vol] 77 U/L Normal 46 - 116 U/L [facility].; [facility]. Work Phone: Bilirubin [Mass/Vol] Negative Normal [facility].; [place] [facility], [employer]. Work Phone: Comprehensive metabolic 2000 panel CMP with eGFR Normal [facility]; [facility]. Work Phone: GFR/1.73 sq M.predicted among blacks MDRD (S/P/Bld) [Vol rate/Area] mL/min/{1.73_m2} Normal 60 - 999 {ML/MINUTE} [facility].; [place] [facility], [facility]. Work Phone: GFR/1.73 sq M.predicted MDRD (S/P/Bld) [Vol rate/Area] mL/min/{1.73_m2} Normal 60 - 999 {ML/MINUTE} [facility].; [place] [facility], Inc[employer] Work Phone: Glucose [Mass/Vol] NORM Normal [facility].; [employer] [employer] [facility]. Work Phone: pH (Bld) 6 [pH] Normal [facility].; [employer]. Work Phone: Protein [Mass/Vol] 15 g/dL Abnormal [facility].; [place] [employer], [employer] Work Phone: Urea nitrogen/Creatinine [Mass ratio] 8 {ratio} Normal 0 - 30 {ratio} [facility].; [employer], [employer]. Work Phone: Laboratory - Hematology and Cell countson 04-12-2024 Basophils (Bld) [#/Vol] 0.04 {3/UL} Normal 0.00 - 0.10 {3/UL} [facility].; [employer]. Work Phone: CBC W Auto Differential panel (Bld) CBC + DIFF Normal [facility]; [employer] Work Phone: Eosinophils (Bld) [#/Vol] 0.12 {3/UL} Normal 0.00 - 0.50 {3/UL} [facility].; [employer]. Work Phone: Lymphocytes (Bld) [#/Vol] 1.82 {3/UL} Normal 0.80 - 2.80 {3/UL} [facility] [employer].; [employer]. Work Phone: MCHC (RBC) [Mass/Vol] 35 {X10_3} Normal 32 - 3 6 {X10_3} [facility].; [employer]. Work Phone: Monocytes (Bld) [#/Vol] 0.51 {3/UL} Normal 0.20 - 1.00 {3/UL} [employer]. Work Phone: Monocytes/100 WBC (Bld) 3.5 % Normal 0.0 - 10.0 % [facility].; [employer]. Work Phone: Neutrophils (Bld) [#/Vol] 12.02 {3/UL} Abnormal 1.50 - 7.10 {3/UL} [facility] [employer] [facility].; [employer]. Work Phone: Platelets (Bld) [#/Vol] 259 {3/UL} Normal 150 - 450 {3/UL} [employer].; [employer]. Work Phone: RBC (Bld) [#/Vol] 4.33 {6/UL} Normal 4.10 - 5.3 0 {6/UL} [facility].; [employer]. Work Phone: WBC (Bld) [#/Vol] 14.5 {3/UL} Abnormal 4.5 - 10.8 {3/UL} [facility].; [employer]. Work Phone: WBC (Bld) [#/Vol] 100 10*3/uL Abnormal [facility].; [employer]. Work Phone: Laboratory - Microbiology an d Antimicrobial susceptibilityon 04-12-2024 Bacteria identified Cx Nom (U) See Results Below Normal [facility]; [employer] Work Phone: Bacteria identified Cx Nom (Unsp spec) 1+ Normal [facility]; [employer] Work Phone: Laboratory - Specimen inform ationon 04-12-2024 Specimen type Nom (Spec) Clean catch Normal [facility] CenterMet[facility]; [facility]. Work Phone: Laboratory - Urinalysison Urinalysis dipstick W Reflex Microscopic panel (U) URINALYSIS WITH MICROSCOPY Normal [facility]; [employer] Work Phone: Yeast LM Ql (Urine sed) NONE Normal H [facility].; [employer] Work Phone: No Panel Informationon 04-12 AGE 23 {years} Normal [place] [employer] [facility].; [facility] Work Phone: Blood 50 Abnormal [employer]; [facility] Work Phone: SEND TO IC? NO Normal [place]; [employer] Work Phone: URINALYSIS WITH MICROSCOPYon 04-12-2024 Amorphous NONE Normal [facility] Comment on above: Performed By: #### 2 03430 #### [facility],[address] [place] [address] Bacteria 1+ Normal [facility] Comment on above: Performed By: #### 2 18827 #### [facility],[address] [place] [address] 65416 Bilirubin Ql (U) Negative Normal NORMAL: NEGATIVE [facility] Comment on above: Performed By: #### 2 14863 #### [facility],[address] [place] [address] 22418 Casts NONE Normal [facility] Comment on above: Performed By: #### 2 20389 #### [facility],[address] [place] [address] 46449 Clarity (U) clear Normal [facility] Comment on above: Performed By: #### 2 11771 #### [facility],[address] [place] [address] 48812 Color (U) yellow Normal [facility] Comment on above: Performed By: #### 2 78068 #### [facility],[address] [place] [address] 51513 Crystals LM Nom (Urine sed) NONE Normal [facility] Comment on above: Performed By: #### 2 44984 #### [facility],[address] [place] [address] 41447 Epi Cells FEW Normal [facility] Comment on above: Performed By: #### 2 03613 #### [facility],[address] [place] [address]1964 Glucose Ql (U) NORM Normal NORMAL: NORMAL [facility] Comment on above: Performed By: #### 2 14838 #### [facility],[address] [place] [address] 78287 Hemoglobin Ql (U) 50 Abnormal NORMAL: NEGATIVE [facility] Comment on above: Performed By: #### 2 90475 #### [facility],[address] [place] [address] 25444 Ketone Negative Normal [facility] Comment on above: Performed By: #### 2 40769 #### [facility],[address] [place] [address] Leukocytes 100 Abnormal NORMAL: NEGATIVE [facility] Comment on above: Result Comment: URIN E MICROSCOPIC Performed By: #### 2 24795 #### [facility],[address] [place] [address] Mucous NONE Normal [facility] Comment on above: Performed By: #### 2 98138 #### [facility],[address] [place] [address] Nitrite Ql (U) Negative Normal [facility] Comment on above: Performed By: #### 2 30648 #### [facility],[address] [place] [address] pH (U) 6 [pH] Normal NORMAL: 5.0-8.0 [facility] Comment on above: Performed By: #### 2 45047 #### [facility],[address] [place] [address] Protein Ql (U) 15 Abnormal NORMAL: NEGATIVE [facility] Comment on above: Performed By: #### 2 72407 #### [facility],[address] [place] [address] Rbc 5-10 Normal 0 - 3 [facility] Comment on above: Performed By: #### 2 67845 #### [facility],[address] [place] [address] Sp [place] 1.020 Normal [facility] Comment on above: Performed By: #### 2 05642 #### [facility],[address] [place] [address] Specimen Type Clean catch Normal [facility] Comment on above: Performed By: #### 2 21271 #### [facility],[address] [place] [address] URINALYSIS WITH MICROSCOPY Normal [facility] Comment on above: Result Comment: URIN ALYSIS Performed By: #### 2 63048 #### [facility],[address] [place] [address] 79135 Urobilinog NORM Normal [facility] Comment on above: Performed By: #### 2 36434 #### [facility],[address] [place], [place] [address] Wbc 6-10 Normal 0 - 5 [facility] Comment on above: Performed By: #### 2 15227 #### [facility],[address] [place] [address] Yeast NONE Normal [facility] Comment on above: Performed By: #### 2 34188 #### [facility],[address] [place] [address] US KIDNEY / BLADDERon 2023 KIDNEY / BLADDER [place] [address] Patient: SHWETA ARMENDARIZ Phone#: : [phone] Age: 23 Gender: F Pt. Type: Out Account: [id number] [facility] Date: 04/12/2024/10:20 Family Phys: ISAURA CONN Charge Code: 836830 Physician: [place] Order #: [id number] Dose#: PROCEDURE: KIDNEY/BLADDER ULTRASOUND COMPARISON: None. INDICATIONS: Urinary retention TECHNIQUE: Ultrasound examination was performed of the kidneys and bladder. FINDINGS: RIGHT KIDNEY: Age-appropriate size and echotexture. Right kidney size 13.6 x 7.1 x 5.7 cm. There is moderate hydronephrosis. LEFT KIDNEY: Age-appropriate size and echotexture. Left kidney size 13.7 x 7.7 x 6.4 cm. There is mild hydronephrosis. BLADDER: Normal. No visible wall thickening, mass, or calculus. There is no significant postvoid residual. OTHER: Negative. CONCLUSION: 1. 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 2. The bladder is normal. Dictated by: Cris Leo MD on 04/12/2024 at 11:03 Approved by: Cris Leo MD on 04/12/2024 at 11:06 Normal [facility] Laboratory - Urinalysison Glucose Test strip (U) [Mass/Vol] Negative Normal [employer].; [facility]. Protein Ql (U) Negative Normal [facility].; [employer]. URINE CULTURE [CCL]on 2023 Bacteria identified Cx Nom (U) URCUL See Results Below See Below CULTURE, URINE MIXED MICROBIOTA 50,000-<100,000 CFU/ml Mixed microbiota No further workup. Mixed microbiota can be due to???urine???contamin ation with s SOURCE: Urine, [place] [address] Mihir Lopez III, M.D. [id number] SEND TO IC NO Normal [facility] Comment on above: Performed By: #### 2 05691 ####[facility],[address] [place] [address] Laboratory - Chemistry and C hemistry - challengeon 03-09-2024 Bilirubin [Mass/Vol] Negative Normal [employer].; [facility]. Work Phone: Glucose [Mass/Vol] NORM Normal [employer].; [facility] [employer] [facility]. Work Phone: pH (Bld) 6.5 [pH] Normal [facility].; [facility]. Work Phone: Protein [Mass/Vol] 15 g/dL Abnormal [employer].; [facility]. Work Phone: Laboratory - Hematology and Cell countson 03-09-2024 WBC (Bld) [#/Vol] 500 10*3/uL Abnormal [facility]; [facility] Work Phone: Laboratory - Microbiology an d Antimicrobial susceptibilityon 03-09-2024 Bacteria identified Cx Nom (U) See Results Below Abnormal [facility]; [facility] Work Phone: Bacteria identified Cx Nom (Unsp spec) NONE Normal [facility]; [facility] Work Phone: Laboratory - Specimen inform ationon 03-09-2024 Specimen type Nom (Spec) UNSPECIFIED Normal [facility]; [place] [employer] [facility] Work Phone: Laboratory - Urinalysison Urinalysis dipstick W Reflex Microscopic panel (U) URINALYSIS WITH MICROSCOPY Normal [facility]; [employer] Work Phone: Yeast LM Ql (Urine sed) NONE Normal [facility]; [facility] Work Phone: No Panel Informationon 03-09 Blood Negative Normal [facility]; [place] [employer] [facility] Work Phone: SEND TO IC? NO Normal [facility]; [place] [employer] [facility] Work Phone: URINALYSIS WITH MICROSCOPYon 03-09-2024 Amorphous NONE Normal [facility] Comment on above: Performed By: #### 2 32786 ####[facility],[address] [place] [address] Bacteria NONE Normal [facility] Comment on above: Performed By: #### 2 80959 ####[facility],[address] [place] [address] Bilirubin Ql (U) Negative Normal NORMAL: NEGATIVE [facility] Comment on above: Performed By: #### 2 89323 ####[facility],[address] [place] [address] Casts NONE Normal [facility] Comment on above: Performed By: #### 2 95211 ####[facility],[address] [place] [address] 80936 Clarity (U) CLEAR Normal [facility] Comment on above: Performed By: #### 2 62454 ####[facility],[address] [place] [address] 70194 Color (U) yellow Normal [facility] Comment on above: Performed By: #### 2 49000 ####[facility],[address] [place] [address] 98083 Crystals LM Nom (Urine sed) NONE Normal [facility] Comment on above: Performed By: #### 2 35882 ####[facility],[address] [place] [address] 89635 Epi Cells OCC Normal [facility] Comment on above: Performed By: #### 2 01564 ####[facility],[address] [place] [address] 24657 Glucose Ql (U) NORM Normal NORMAL: NORMAL [facility] Comment on above: Performed By: #### 2 17848 ####[facility],[address] [place] [address] 51689 Hemoglobin Ql (U) Negative Normal NORMAL: NEGATIVE [facility] Comment on above: Performed By: #### 2 75843 ####[facility],[address] [place] [address] 05067 Ketone Negative Normal [facility] Comment on above: Performed By: #### 2 24042 ####[facility],[address] [place] [address] 28925 Leukocytes 500 Abnormal NORMAL: NEGATIVE [facility] Comment on above: Result Comment: URIN E MICROSCOPIC Performed By: #### 2 49202 ####[facility],[address] [place] [address] 06275 Mucous NONE Normal [facility] Comment on above: Performed By: #### 2 59216 ####[facility],[address] [place] [address] 91970 Nitrite Ql (U) Negative Normal [facility] Comment on above: Performed By: #### 2 44401 ####[facility],[address] [place] [address] 20908 pH (U) 6.5 [pH] Normal NORMAL: 5.0-8.0 [facility] Comment on above: Performed By: #### 2 37996 ####[facility],[address] [place] [address] 21545 Protein Ql (U) 15 Abnormal NORMAL: NEGATIVE [facility] Comment on above: Performed By: #### 2 80770 ####[facility],[address] [place] [address] 84880 Rbc NONE Normal 0 - 3 [facility] Comment on above: Performed By: #### 2 28094 ####[facility],[address] [place], [place] [id number] Sp [place] 1.020 Normal [facility] Comment on above: Performed By: #### 2 36414 ####[facility],[address] [place], [place] [address] Specimen Type UNSPECIFIED Normal [facility] Comment on above: Performed By: #### 2 63615 ####[facility],[address] [place], [place] [address] URINALYSIS WITH MICROSCOPY Normal [facility] Comment on above: Result Comment: URIN ALYSIS Performed By: #### 2 74964 ####[facility],[address] [place] [address] 19053 Urobilinog NORM Normal [facility] Comment on above: Performed By: #### 2 89952 ####[facility],[address] [place] [address] 98376 Wbc 1-5 Normal 0 - 5 [facility] Comment on above: Performed By: #### 2 11039 ####[facility],[address] [place] [address] Yeast NONE Normal [facility] Comment on above: Performed By: #### 2 98501 ####[facility],[address] [place] [address] US OB LIMITED(CERV LENGTH,AF I OR POSITIOon 03-09-2024 US OB LIMITED(CERV LENGTH,ADITYA OR POSITIO [place] [address] Patient: SHWETA ARMENDARIZ Phone#: : [phone] Age: 23 Gender: F Pt. Type: Out Account: [id number] Location: [facility] [place] Ordering: DEBRA FRANCISCO Exam Date: 03/09/2024/13:07 Family Phys: ISAURA CONN Charge Code: 526606 Physician: [place] Order #: [id number] Dose#: PROCEDURE: OB LIMITED ULTRASOUND COMPARISON: [facility], OB LIMITED, 02/02/2024, 12:47. INDICATIONS: Cervical length TECHNIQUE: Limited sonographic examination for obstetrical and evaluation FINDINGS: NUMBER: Single. POSITION: - AMNIOTIC FLUID VOLUME: Normal for age. PLACENTA LOCATION: -. CLINICAL GA: 20 weeks 2 days CLINICAL LOULOU: - ULTRASOUND GA: - ULTRASOUND LOULOU: - Cervical length is 4.2 centimeters. heart rate is 152 BPM. CONCLUSION: 1. Cervical length is 4.2 centimeters. Dictated by: Cris Leo MD on 03/09/2024 at 14:03 Approved by: Cris Leo MD on 03/09/2024 at 14:11 Normal [facility] Laboratory - Urinalysison Glucose Test strip (U) [Mass/Vol] Negative Normal [facility] Protein Ql (U) Negative Normal [facility] CBC + DIFFon 02-02-2024 Baso # 0.02 x10EE3/UL Normal 0.00 - 0.10 [facility] Comment on above: Performed By: #### 2 89871 #### [facility],[address] [place], [place] [address] Basophils/100 WBC (Bld) 0.2 % Normal 0.0 - 2.0 % [facility] Comment on above: Performed By: #### 2 18288 #### [facility],[address] [place] [address] CBC + DIFF Normal [facility] Comment on above: Result Comment: CBC- COMPLETE BLOOD COUNT Performed By: #### 2 23801 #### [facility],[address] [place] [address] EO # 0.13 x10EE3/UL Normal 0.00 - 0.50 [facility] Comment on above: Performed By: #### 2 43765 #### [facility],[address] [place] [address] Eosinophils/100 WBC (Bld) 1.0 % Normal 0.0 - 7.0 % [facility] Comment on above: Performed By: #### 2 90944 #### [facility],[address] [place] [address] Erythrocyte distribution width (RBC) [Ratio] 13.0 % Normal 12.0 - 15.6 % [facility] Comment on above: Performed By: #### 2 40068 #### [facility],[address] [place] [address] Hematocrit (Bld) [Volume fraction] 38.1 % Normal 34.0 - 46.0 % [facility] Comment on above: Performed By: #### 2 74947 #### [facility],[address] [place] [address] Hemoglobin (Bld) [Mass/Vol] 13.2 g/dL Normal 12.0 - 16.0 g/dL [facility] Comment on above: Performed By: #### 2 51267 #### [facility],[address] [place] [address] 50091 Lymph # 2.66 x10EE3/UL Normal 0.80 - 2.80 [facility] Comment on above: Performed By: #### 2 39798 #### [facility],[address] [place], [place] [address] Lymphocytes/100 WBC (Bld) 20.9 % Normal 20.0 - 45.0 % [facility] Comment on above: Performed By: #### 2 02295 #### [facility],[address] [place] [address] MANUAL DIFF N/A Normal [facility] Comment on above: Performed By: #### 2 65496 #### [facility],[address] [place] [address] MCH (RBC) [Entitic mass] 30 pg Normal 27 - 33 pg [facility] Comment on above: Performed By: #### 2 77696 #### [facility],[address] [place] [address] MCHC 35 X10 3 Normal 32 - 36 [facility] Comment on above: Performed By: #### 2 38475 #### [facility],[address] [place] [address] 48064 MCV (RBC) [Entitic vol] 86 fL Normal 80 - 99 fL J l [facility] Comment on above: Performed By: #### 2 76218 #### [facility],[address] [place] [address] 38925 Deuel # 0.64 x10EE3/UL Normal 0.20 - 1.00 [facility] Comment on above: Performed By: #### 2 35749 #### [facility],[address] [place] [address] 99582 MONOS % 5.1 % Normal 0.0 - 10.0 [facility] Comment on above: Performed By: #### 2 56181 #### [facility],[address] [place] [address] 40020 Morphology Elder (Bld) [Interp] N/A Normal [facility] Comment on above: Performed By: #### 2 80809 #### [facility],[address] [place] [address] 43611 Neut # 9.26 x10EE3/UL High 1.50 - 7.10 [facility] Comment on above: Performed By: #### 2 80351 #### [facility],[address] [place] [address] 37416 Neutrophils/100 WBC (Bld) 72.8 % Normal 46.0 - 76.0 % [facility] Comment on above: Performed By: #### 2 60855 #### [facility],[address] [place] [address] 28244 PLATELET 288 x10EE3/UL Normal 150 - 450 [facility] Comment on above: Performed By: #### 2 29587 #### [facility],[address] [place] [address] 28273 Platelet mean volume (Bld) [Entitic vol] 8.4 fL Normal 6.6 - 10.5 fL [facility] Comment on above: Result Comment: AUTO MATED DIFFERENTIAL Performed By: #### 2 91049 #### [facility],[address] [place] [address] 68329 RBC 4.46 x 10EE6/UL Normal 4.10 - 5.30 [facility] Comment on above: Performed By: #### 2 84869 #### [facility],[address] [place] [address] 01969 WBC 12.7 x 10EE3/UL High 4.5 - 10.8 [facility] Comment on above: Performed By: #### 2 88382 #### [facility],[address] [place] [address] 68099 CMP with eGFRon 02-02-2024 AGE 23 years Normal [facility] Comment on above: Performed By: #### 2 59692 #### [facility],[address] [place] [address] 19986 Albumin [Mass/Vol] 3.2 g/dL Abnormal 3.4 - 5.0 g/dL [facility] Comment on above: Performed By: #### 2 87809 #### [facility],[address] [place] [address] Albumin/Globulin [Mass ratio] 0.8 {ratio} Low 0.9 - 1.6 [facility] Comment on above: Performed By: #### 2 67291 #### [facility],[address] [place], [place] [address] ALK PHOS 65 U/L Normal 46 - 116 [facility] Comment on above: Performed By: #### 2 28471 #### [facility],[address] [place] [address] ALT [Catalytic activity/Vol] 13 U/L Abnormal 16 - 63 U/L [facility] Comment on above: Performed By: #### 2 64581 #### [facility],[address] [place], [place] [address] Anion gap [Moles/Vol] 18 mmol/L Normal 10 - 2 0 mmol/L [facility] Comment on above: Performed By: #### 2 15246 #### [facility],[address] [place] [address] AST [Catalytic activity/Vol] 14 U/L Normal 13 - 39 U/L [facility] Comment on above: Performed By: #### 2 48404 #### [facility],[address] [place] [address] 34399 B/C RATIO 10 ratio Normal 0 - 30 [facility] Comment on above: Performed By: #### 2 43865 #### [facility],[address] [place], [place] [address] Bilirubin [Mass/Vol] 0.3 mg/dL Normal 0.2 - 1 .0 mg/dL [facility] Comment on above: Performed By: #### 2 38158 #### [facility],[address] [place], [place] [address] Calcium [Mass/Vol] 9.5 mg/dL Normal 8.5 - 10. 1 mg/dL [facility] Comment on above: Performed By: #### 2 63552 #### [facility],[address] [place] [address] Chloride [Moles/Vol] 105 mmol/L Normal 98 - 10 7 mmol/L [facility] Comment on above: Performed By: #### 2 61944 #### [facility],[address] [place] [address] CMP with eGFR Normal [facility] Comment on above: Result Comment: COMP REHENSIVE METABOLIC PANEL Performed By: #### 2 11277 #### [facility],[address] [place], [place] [address] CO2 [Moles/Vol] 20.7 mmol/L Abnormal 21.0 - 32.0 mmol/L [facility] Comment on above: Performed By: #### 2 03817 #### [facility],[address] [place], [place] [address] Creatinine [Mass/Vol] 0.70 mg/dL Normal 0.55 - 1.02 mg/dL [facility] Comment on above: Performed By: #### 2 25671 #### [facility],[address] [place], [place] [address] GFR/1.73 sq M.predicted among non-blacks MDRD (S/P/Bld) [Vol rate/Area] mL/min/{1.73_m2} Normal 60 - 999 [facility] Comment on above: Performed By: #### 2 21024 #### [facility],[address] [place] [address] Result Comment: ACCO RDING TO THE NATIONAL KIDNEY DISEASE EDUCATION PROGRAM(NKDE), A NORMAL eGFR IS A VALUE GREATER THAN OR EQUAL TO 60 ML/MIN/1.73 SQ METERS. CHRONIC KIDNEY DISEASE: <60mL/MIN/1.73 SQ METERS KIDNEY FAILURE: <15mL/MIN/1.73 SQ METERS THIS TEST SHOULD ONLY BE USED FOR PATIENTS 18 YEARS OF AGE AND OLDER. Globulin (S) [Mass/Vol] 4.1 g/dL Abnormal 1.5 - 3.8 g/dL [facility] Comment on above: Performed By: #### 2 76176 #### [address] [address] Glucose [Mass/Vol] 93 mg/dL Normal 74 - 106 mg/dL [facility] Comment on above: Performed By: #### 2 44301 #### [address] [address] Potassium [Moles/Vol] 3.8 mmol/L Normal 3.5 - 5.1 mmol/L [facility] Comment on above: Performed By: #### 2 87524 #### [facility],[address] [place] [address] 93960 Protein [Mass/Vol] 7.3 g/dL Normal 6.4 - 8.2 g/dL [facility] Comment on above: Performed By: #### 2 26371 #### [facility],[address] [place] [address] 66620 Sodium [Moles/Vol] 140 mmol/L Normal 136 - 145 mmol/L [facility] Comment on above: Performed By: #### 2 97632 #### [address] [address] Urea nitrogen [Mass/Vol] 7 mg/dL Normal 7 - 18 mg/dL [facility] Comment on above: Performed By: #### 2 67296 #### [address] [address] Laboratory - Chemistry and C hemistry - challengeon 02-02-2024 Albumin [Mass/Vol] 0.8 g/dL Abnormal 0.9 - 1.6 [facility]; [facility] Work Phone: ALP [Catalytic activity/Vol] 65 U/L Normal 46 - 116 U/L [facility]; [facility] Work Phone: Bilirubin [Mass/Vol] Negative Normal [facility]; [facility]. Work Phone: Comprehensive metabolic 2000 panel CMP with eGFR Normal [facility]; [facility] Work Phone: GFR/1.73 sq M.predicted among blacks MDRD (S/P/Bld) [Vol rate/Area] mL/min/{1.73_m2} Normal 60 - 999 {ML/MINUTE} [facility]; [facility] Work Phone: GFR/1.73 sq M.predicted MDRD (S/P/Bld) [Vol rate/Area] mL/min/{1.73_m2} Normal 60 - 999 {ML/MINUTE} [facility]. Work Phone: Glucose [Mass/Vol] NORM Normal [facility]; [place] [employer] [facility] Work Phone: pH (Bld) 7 [pH] Normal [facility]; [place] [employer] [facility] Work Phone: Protein [Mass/Vol] Negative Normal [facility]; [place] [employer] [facility] Work Phone: Urea nitrogen/Creatinine [Mass ratio] 10 {ratio} Normal 0 - 30 {ratio} [facility]; [place] [employer] [facility] Work Phone: Laboratory - Hematology and Cell countson 02-02-2024 Basophils (Bld) [#/Vol] 0.02 {3/UL} Normal 0.00 - 0.10 {3/UL} [facility]; [employer] Work Phone: CBC W Auto Differential panel (Bld) CBC + DIFF Normal [facility] [employer]. Work Phone: Eosinophils (Bld) [#/Vol] 0.13 {3/UL} Normal 0.00 - 0.50 {3/UL} [facility] [employer]. Work Phone: Lymphocytes (Bld) [#/Vol] 2.66 {3/UL} Normal 0.80 - 2.80 {3/UL} [employer] Work Phone: MCHC (RBC) [Mass/Vol] 35 {X10_3} Normal 32 - 3 6 {X10_3} [employer] Work Phone: Monocytes (Bld) [#/Vol] 0.64 {3/UL} Normal 0.20 - 1.00 {3/UL} [facility].; [employer] Work Phone: Monocytes/100 WBC (Bld) 5.1 % Normal 0.0 - 10.0 % [facility] [employer] Work Phone: Neutrophils (Bld) [#/Vol] 9.26 {3/UL} Abnormal 1.50 - 7.10 {3/UL} [place] Work Phone: Platelets (Bld) [#/Vol] 288 {3/UL} Normal 150 - 450 {3/UL} [employer] Work Phone: RBC (Bld) [#/Vol] 4.46 {6/UL} Normal 4.10 - 5.3 0 {6/UL} [employer] Work Phone: WBC (Bld) [#/Vol] 12.7 {3/UL} Abnormal 4.5 - 10.8 {3/UL} [facility]; [facility] Work Phone: WBC (Bld) [#/Vol] 500 10*3/uL Abnormal [facility]; [facility]. Work Phone: Laboratory - Microbiology an d Antimicrobial susceptibilityon 02-02-2024 Bacteria identified Cx Nom (Unsp spec) 3+ Normal [facility]; [facility] Work Phone: Laboratory - Specimen inform ationon 02-02-2024 Specimen type Nom (Spec) Clean catch Normal [facility]; [facility] Work Phone: Laboratory - Urinalysison Urinalysis dipstick W Reflex Microscopic panel (U) URINALYSIS WITH MICROSCOPY Normal [facility]; [facility] Work Phone: Yeast LM Ql (Urine sed) NONE Normal [facility]; [facility] Work Phone: No Panel Informationon 02-01 AGE 23 {years} Normal [facility]; [facility] Work Phone: Blood Negative Normal [facility]; [facility] Work Phone: URINALYSIS WITH MICROSCOPYon 02-02-2024 Amorphous NONE Normal [facility] Comment on above: Performed By: #### 2 23408 #### [facility],[address] [place] [address] Bacteria 3+ Normal [facility] Comment on above: Performed By: #### 2 59517 #### [facility],[address] [place] [address] Bilirubin Ql (U) Negative Normal NORMAL: NEGATIVE [facility] Comment on above: Performed By: #### 2 38039 #### [facility],[address] [place] [address] 85518 Casts NONE Normal [facility] Comment on above: Performed By: #### 2 67054 #### [facility],[address] [place] [address] 94512 Clarity (U) sl.cloudy Normal [facility] Comment on above: Performed By: #### 2 49926 #### [facility],[address] [place] [address] 34285 Color (U) yellow Normal [facility] Comment on above: Performed By: #### 2 00666 #### [facility],[address] [place], [place] [id number] Crystals LM Nom (Urine sed) NONE Normal [facility] Comment on above: Performed By: #### 2 42195 #### [facility],[address] [place] [address] 34379 Epi Cells MODERATE Normal [facility] Comment on above: Performed By: #### 2 69792 #### [facility],[address] [place] [address] 62144 Glucose Ql (U) NORM Normal NORMAL: NORMAL [facility] Comment on above: Performed By: #### 2 29531 #### [facility],[address] [place] [address] 34669 Hemoglobin Ql (U) Negative Normal NORMAL: NEGATIVE [facility] Comment on above: Performed By: #### 2 26247 #### [facility],[address] [place] [address] 23836 Ketone Negative Normal [facility] Comment on above: Performed By: #### 2 77519 #### [facility],[address] [place] [address] 02856 Leukocytes 500 Abnormal NORMAL: NEGATIVE [facility] Comment on above: Result Comment: URIN E MICROSCOPIC Performed By: #### 2 23762 #### [facility],[address] [place] [address] 03408 Mucous NONE Normal [facility] Comment on above: Performed By: #### 2 26682 #### [facility],[address] [place], [place] [id number] Nitrite Ql (U) Negative Normal [facility] Comment on above: Performed By: #### 2 60845 #### [facility],[address] [place] [address] pH (U) 7 [pH] Normal NORMAL: 5.0-8.0 [facility] Comment on above: Performed By: #### 2 61048 #### [facility],[address] [place] [address] Protein Ql (U) Negative Normal NORMAL: NEGATIVE [facility] Comment on above: Performed By: #### 2 20335 #### [facility],[address] [place] [address] Rbc NONE Normal 0 - 3 [facility] Comment on above: Performed By: #### 2 98655 #### [facility],[address] [place] [address] Sp [place] 1.010 Normal [facility] Comment on above: Performed By: #### 2 46202 #### [facility],[address] [place] [address] Specimen Type Clean catch Normal [facility] Comment on above: Performed By: #### 2 76123 #### [facility],[address] [place] [address] URINALYSIS WITH MICROSCOPY Normal [facility] Comment on above: Result Comment: URIN ALYSIS Performed By: #### 2 34523 #### [facility],[address] [place], [place] [address] Urobilinog NORM Normal [facility] Comment on above: Performed By: #### 2 09370 #### [facility],[address] [place] [address] 57032 Wbc 11-15 Normal 0 - 5 [facility] Comment on above: Performed By: #### 2 92549 #### [facility],[address] [place] [address] 67723 Yeast NONE Normal [facility] Comment on above: Performed By: #### 2 48088 #### [facility],[address] [place] [address] US OB LIMITED(CERV LENGTH,AF I OR POSITIOon 02-02-2024 US OB LIMITED(CERV LENGTH,ADITYA OR POSITIO [place] [address] Patient: SHWETA ARMENDARIZ Phone#: : [phone] Age: 23 Gender: F Pt. Type: Out Account: [id number] Location: [facility] Ordering: [employer] Exam Date: 02/02/2024/12:47 Family Phys: ISAURA MOSESLER Charge Code: [id number] Physician: [place] Order #: [id number] Dose#: PROCEDURE: OB LIMITED ULTRASOUND COMPARISON: None. INDICATIONS: Cervical length TECHNIQUE: Limited sonographic examination for obstetrical and evaluation FINDINGS: NUMBER: Single. POSITION: Vertex. AMNIOTIC FLUID VOLUME: Not evaluated PLACENTA LOCATION: -. CLINICAL GA: 15 weeks 2 days CLINICAL LOULOU: - ULTRASOUND GA: - ULTRASOUND LOULOU: - Cervical length is 3.5 centimeters. The internal os is closed. CONCLUSION: 1. Limited evaluation. Cervical length is 3.5 centimeters. The internal os is closed. Dictated by: Cris Leo MD on 02/02/2024 at 13:38 Approved by: Cris Leo MD on 02/02/2024 at 13:43 Normal [facility] Laboratory - Urinalysison Glucose Test strip (U) [Mass/Vol] Negative Normal [facility] Protein Ql (U) trace Normal [facility], [facility], [facility]. OBSTETRIC PANELon 01-03-2024 ABO group Nom (Bld) O Normal [facility] Comment on above: Performed By: #### 3 [id number], #### [facility] [address], [address] [place] [address] Inspector Filters: Jimenez Benavides MD #### [id number] #### [facility], [address] [place] [address] Inspector Filters: Diane Mckinney MD,PhD,JANNET ANTIBODY SCREEN, RBC W/REFL ID, TITER AND AG Detected Normal [facility] Comment on above: Result Comment: Refe rence range No antibodies detected This assay is a screening test for the detection of red blood cell antibodies. The test is not to be used for pretransfusion screening or for the medical management of an alloimmunized . Performed By: #### 3 [id number], #### [facility] [address], [address] [place] [address] Inspector Filters: Jimenez Benavides MD #### [id number] #### [facility]/[place] [id number] [place] [address] Inspector Filters: Diane Mckinney MD,PhD,JANNET Basophils (Bld) [#/Vol] 0.043 10*3/uL Normal 0-200 [facility] Comment on above: Performed By: #### 3 [id number], #### [facility] [address], [address] [place] [address] Inspector Filters: Jimenez Benavides MD #### [id number] #### [facility], [address] [place] [address] Inspector Filters: Diane Mckinney MD,PhD,JANNET Basophils/100 WBC (Bld) 0.4 % Normal [facility] Comment on above: Performed By: #### 3 6126, #### [facility] of [place] [address] , [address] [place] [address] Inspector Filters: Jimenez Benavides MD #### [id number] #### [facility], [facility] [place] [address] Inspector Filters: Diane Mckinney MD,PhD,JANNET Eosinophils (Bld) [#/Vol] 0.225 10*3/uL Normal 15-500 [facility] Comment on above: Performed By: #### 3 6126, #### [facility] of [place] [address] , [address] [place] [address] Inspector Filters: Jimenez Benavides MD #### [id number] #### [facility], [facility] [place] [address] Inspector Filters: Diane Mckinney MD,PhD,JANNET Eosinophils/100 WBC (Bld) 2.1 % Normal [facility] Comment on above: Performed By: #### 3 6126, #### [facility] of [place] [address] Inspector Filters: Jimenez Benavides MD #### [id number] #### [facility], [facility] [place] [address] Inspector Filters: Diane Mckinney MD,PhD,JANNET Erythrocyte distribution width (RBC) [Ratio] 13.0 % Normal 11.0-15.0 [facility] Comment on above: Performed By: #### 3 [id number], #### [facility] of [address] , [address] [place] [address] Inspector Filters: Jimenez Benavides MD #### [id number] #### [facility], [address] [place] [address] Inspector Filters: Diane Mckinney MD,PhD,JANNET Hematocrit (Bld) [Volume fraction] 41.8 % Normal 35.0-45.0 [facility] Comment on above: Performed By: #### 3 6126, #### [facility] [address], [address] [place] [address] Inspector Filters: Jimenez Benavides MD #### [id number] #### [facility], [address] [place] [address] Inspector Filters: Diane Mckinney MD,PhD,JANNET Hemoglobin (Bld) [Mass/Vol] 14.3 g/dL Normal 11.7-15.5 [facility] Comment on above: Performed By: #### 3 6126, #### [facility] [address], [address] [place] [address] Inspector Filters: Jimenez Benavides MD #### [id number] #### [facility], [address] [address] Inspector Filters: Diane Mckinney MD,PhD,JANNET HEPATITIS B SURFACE ANTIGEN Non-Reactive Normal NON-REACTIVE [facility] Comment on above: Result Comment: For additional information, please refer to http://education.Inktank.Zoodles/faq/RFF408 (This link is being provided for informational/ educational purposes only.) Performed By: #### 3 [id number], #### [facility] [address], [address] [place] [address] Inspector Filters: Jimenez Benavides MD #### [id number] #### [facility], [address] [place] [address] Inspector Filters: Diane Mckinney MD,PhD,JANNET Lymphocytes (Bld) [#/Vol] 2.354 10*3/uL Normal 850-3900 [facility] Comment on above: Performed By: #### 3 [id number] #### [facility] [place] [address] , [address] [place] [address] Inspector Filters: Jimenez Benavides MD #### [id number] #### [facility], [facility] [place] [address] Inspector Filters: Diane Mckinney MD,PhD,JANNET Lymphocytes/100 WBC (Bld) 22.0 % Normal [facility] Comment on above: Performed By: #### 3 61, #### [facility] of [address], [address] [place] [address] Inspector Filters: Jimenez Benavides MD #### [id number] #### [facility], [address] [place] [address] Inspector Filters: Diane Mckinney MD,PhD,JANNET MCH (RBC) [Entitic mass] 30.8 pg Normal 27.0-33.0 [facility] Comment on above: Performed By: #### 3 6126, #### [facility] of [address], [address] [place] [address] Inspector Filters: Jimenez Benavides MD #### [id number] #### [facility], [facility] [place] [address] Inspector Filters: Diane Mckinney MD,PhD,JANNET MCHC (RBC) [Mass/Vol] 34.2 g/dL Normal 32.0-36.[address] [facility] Comment on above: Performed By: #### 3 6126, #### [facility] [place] [address] , [address] [place] [address] Inspector Filters: Jimenez Benavides MD #### [id number] #### [facility], [address] [place] [address] Inspector Filters: Diane Mckinney MD,PhD,JANNET MCV (RBC) [Entitic vol] 89.9 fL Normal 80.0-100.0 [facility] Comment on above: Performed By: #### 3 61, #### [facility] of [address], [address] [place] [address] Inspector Filters: Jimenez Benavides MD #### [id number] #### [facility], [address] [place], [place] [address] Inspector Filters: Diane Mckinney MD,PhD,JANNET Monocytes (Bld) [#/Vol] 0.728 10*3/uL Normal 200-950 [facility] Comment on above: Performed By: #### 3 6126, #### [facility] of [address], [address] [place] [address] Inspector Filters: Jimenez Benavides MD #### [id number] #### [facility], [address] [place] [address] Inspector Filters: Diane Mckinney MD,PhD,JANNET Monocytes/100 WBC (Bld) 6.8 % Normal [facility] Comment on above: Performed By: #### 3 6126, #### [facility] of [address], [address] [place] [address] Inspector Filters: Jimenez Benavides MD #### [id number] #### [facility], [address] [place] [address] Inspector Filters: Diane Mckinney MD,PhD,JANNET Neutrophils (Bld) [#/Vol] 7.351 10*3/uL Normal 3048-3361 [facility] Comment on above: Performed By: #### 3 6126, #### [facility] of [address], [address] [place] [address] Inspector Filters: Jimenez Benavides MD #### [id number] #### [facility], [address] [place] [address] Inspector Filters: Diane Mckinney MD,PhD,JANNET Neutrophils/100 WBC (Bld) 68.7 % Normal [facility] Comment on above: Performed By: #### 3 6126, #### [facility] of [place] [address] , [address] [place] [address] Inspector Filters: Jimenez Benavides MD #### [id number] #### [facility], [facility] [place] [address] Inspector Filters: Diane Mckinney MD,PhD,JANNET Platelet mean volume (Bld) [Entitic vol] 10.0 fL Normal 7.5-12.5 [facility] Comment on above: Performed By: #### 3 6126, #### [facility] of [place] [address], [address] [place] [address] Inspector Filters: Jimenez Benavides MD #### [id number] #### [facility], [facility] [place] [address] Inspector Filters: Diane Mckinney MD,PhD,JANNET Platelets (Bld) [#/Vol] 313 10*3/uL Normal 140-400 [facility] Comment on above: Performed By: #### 3 6126, #### [facility] [place] [address] , [address] [place] [address] Inspector Filters: Jimenez Benavides MD #### [id number] #### [facility], [address] [place] [address] Inspector Filters: Diane Mckinney MD,PhD,JANNET RBC (Bld) [#/Vol] 4.65 10*6/uL Normal 3.80-5.10 [facility] Comment on above: Performed By: #### 3 6127, #### [facility] [place] [address] , [address] [place] [address] Inspector Filters: Jimenez Benavides MD #### [id number] #### [facility], [address] [place] [address] Inspector Filters: Diane Mckinney MD,PhD,JANNET RH TYPE Positive Normal [facility] Comment on above: Result Comment: For additional information, please refer to http://education.Invajo/faq/NEM256 (This link is being provided for informational/ educational purposes only.) Performed By: #### 3 6127, #### [facility] [place] [address] , [address] [place] [address] Inspector Filters: Jimenez Benavides MD #### [id number] #### [facility], [address] [place] [address] Inspector Filters: Diane Mckinney MD,PhD,JANNET RPR (DX) W/REFL TITER AND CONFIRMATORY TESTING Non-Reactive Normal NON-REACTIVE [facility] Comment on above: Result Comment: No laboratory evidence of syphilis. If recent exposure is suspected, submit a new sample in 2-4 weeks. Performed By: #### 3 6127, #### [facility] [place] [address] , [address] [place] [address] Inspector Filters: Jimenez Benavides MD #### [id number] #### [facility], [address] [place] [address] Inspector Filters: Diane Mckinney MD,PhD,JANNET RUBELLA AB (IGG), IMMUNE STATUS <0.90 Low [facility] Comment on above: Result Comment: Inde x Interpretation ----- <0.90 Not consistent with immunity 0.90-0.99 Equivocal > or = 1.00 Consistent with immunity The presence of rubella IgG antibody suggests immunization or past or current infection with rubella virus. Performed By: #### 3 6126, #### [facility] [address], [address] [place] [address] Inspector Filters: Jimenez Benavides MD #### [id number] #### [facility], [address] [place], [place] [address] Inspector Filters: Diane Mckinney MD,PhD,JANNET WBC (Bld) [#/Vol] 10.7 10*3/uL Normal 3.8-10.8 [facility] Comment on above: Performed By: #### 3 6126, #### [facility] [address], [address] [place] [address] Inspector Filters: Jimenez Benavides MD #### [id number] #### [facility], [address] [place] [address] Inspector Filters: Diane Mckinney MD,PhD,JANNET TSH W/REFLEX TO FT4on 2023 TSH W/REFLEX TO FT4 0.63 mIU/L Normal [facility] Comment on above: Result Comment: Refe rence Range > or = 20 Years 0.40-4.50 Ranges First trimester 0.26-2.66 Second trimester 0.55-2.73 Third trimester 0.43-2.91 Performed By: #### 3 6126, #### [facility] [address], [address] [place] [address] Inspector Filters: Jimenez Benavides MD #### [id number] #### [facility], [address] [place] [address] Inspector Filters: Diane Mckinney MD,PhD,JANNET VARICELLA ZOSTER VIRUS AB (I MMUNITY SCR),ACIF (S)on 01-03-2024 VARICELLA ZOSTER VIRUS AB (IMMUNITY SCR),ACIF (S) <1:4 Abnormal [facility] Comment on above: Result Comment: REFERENCE RANGE: > or = 1:4 <1:4 Antibody Not Detected - evidence for susceptibility to VZV infection. > or = 1:4 Antibody Detected - evidence for immunity against VZV infection. A positive titer (greater than or equal to 1:4) indicates a history of VZV infection or vaccination. In infected individuals, this test is usually positive within 2 days after the onset of rash and is therefore positive for life. The absence of detectable antibody may indicate susceptibility to VZV infection. This test was developed and its analytical performance characteristics have been determined by [employer]. It has not been cleared or approved by FDA. This assay has been validated pursuant to the CLIA regulations and is used for clinical purposes. Performed By: #### 3 6127, #### [facility] [address], [address] [place] [address] Inspector Filters: Jimenez Benavides MD #### [id number] #### [facility], [address] [place] [address] Inspector Filters: Diane Mckinney MD,PhD,JANNET Laboratory - Blood bankon ABO group Nom (Bld) O Normal [facility]; [facility], [facility] Rh Nom (Amn fld) Positive Normal [facility]; [facility], [facility] Laboratory - Hematology and Cell countson 12-29-2023 Basophils (Bld) [#/Vol] 0.043 10*3/uL Normal 0 - 200 {cells/uL} [facility], [facility]. Basophils/100 WBC (Bld) 0.4 % Normal [facility]; [facility], [facility]. Eosinophils (Bld) [#/Vol] 0.225 10*3/uL Normal 15 - 500 {cells/uL} [facility].; [facility], [facility]. Eosinophils/100 WBC (Bld) 2.1 % Normal [facility]; [facility] Erythrocyte distribution width (RBC) [Ratio] 13.0 % Normal 11.0 - 15.0 % [facility].; [facility], [facility] Hematocrit (Bld) [Volume fraction] 41.8 % Normal 35.0 - 45.0 % [facility].; [facility], [facility] Hemoglobin (Bld) [Mass/Vol] 14.3 g/dL Normal 11.7 - 15.5 g/dL [facility].; [facility], [facility] Lymphocytes (Bld) [#/Vol] 2.354 10*3/uL Normal 850 - 3900 {cells/uL} [facility], [facility].; [facility], [facility] Lymphocytes/100 WBC (Bld) 22.0 % Normal [facility].; [facility], [facility] MCH (RBC) [Entitic mass] 30.8 pg Normal 27.0 - 33.0 pg [facility].; [facility], [facility]. MCHC (RBC) [Mass/Vol] 34.2 g/dL Normal 32.0 - 36.0 g/dL [facility].; [facility], [facility]. MCV (RBC) [Entitic vol] 89.9 fL Normal 80.0 - 100.0 fL [facility].; [facility], [facility]. Monocytes (Bld) [#/Vol] 0.728 10*3/uL Normal 200 - 950 {cells/uL} [facility], [facility].; [facility], [facility]. Monocytes/100 WBC (Bld) 6.8 % Normal [facility].; [facility], [facility]. Neutrophils (Bld) [#/Vol] 7.351 10*3/uL Normal 1500 - 7800 {cells/uL} [facility].; [facility], [facility]. Neutrophils/100 WBC (Bld) 68.7 % Normal [facility].; [facility], [facility]. Platelet mean volume (Bld) [Entitic vol] 10.0 fL Normal 7.5 - 12.5 fL [facility].; [facility], [facility]. Platelets (Bld) [#/Vol] 313 10*3/uL Normal 140 - 400 [facility]; [facility] RBC (Bld) [#/Vol] 4.65 10*6/uL Normal 3.80 - 5.1 0 {Million/uL} [facility]; [facility] WBC (Bld) [#/Vol] 10.7 10*3/uL Normal 3.8 - 10.8 [facility]; [facility] No Panel Informationon 12-28 ANTIBODY SCREEN, RBC W/REFL ID, TITER AND AG Detected Normal [facility]; [facility] HEPATITIS B SURFACE ANTIGEN Non-Reactive Normal [facility]; [facility] RPR (DX) W/REFL TITER AND CONFIRMATORY TESTING Non-Reactive Normal [facility]; [facility] RUBELLA AB (IGG), IMMUNE STATUS <0.90 Abnormal [facility]; [facility] TSH W/REFLEX TO FT4 0.63 {mIU/L} Normal [facility]; [facility] VARICELLA ZOSTER VIRUS AB (IMMUNITY SCR),ACIF (S) <1:4 Abnormal [facility]; [facility] Absolute lymphocyte countOrd ered By: Nic Chan on 07-22-2023 Lymphocytes Auto (Unsp spec) [#/Vol] 2.18 10*3/uL 0.83-4.51 [facility] Automated lymphocyte count a s percentage of total leukocytesOrdered By: Nic Chan on 07-22-2023 Lymphocytes/100 WBC Auto (Unsp spec) 31.3 % 19-41 [facility] Basophil percentageOrdered B y: Nic Chan on 07-22-2023 Basophils/100 WBC (Bld) 0.4 % 0-[address] [facility] Bilirubin [Mass/Vol] 0.30 mg/dL 0.20-1.00 [facility] Comment on above: For patients on eltr ombopag therapy, use of Dimension [place] TBIL is not recommended. Chloride [Moles/Vol] 108 mmol/L 98-107 [facility] Eosinophils/100 WBC (Bld) 3.0 % 0-5 [facility] Glucose [Mass/Vol] 82 mg/dL 74-106 [facility] Hemoglobin (Bld) [Mass/Vol] 15.0 g/dL 12.0-15.0 [facility] Monocytes/100 WBC (Bld) 14.8 % 0-[address] [facility] Neutrophils (Bld) [#/Vol] 3.5 10*3/uL 2.0-7.7 [facility] Neutrophils/100 WBC (Bld) 50.1 % 47-70 [facility] Potassium [Moles/Vol] 3.7 mmol/L 3.5-5.1 [facility] Protein [Mass/Vol] 8.5 g/dL 6.4-8.2 [facility] Sodium [Moles/Vol] 140 mmol/L 136-145 [facility] WBC (Bld) [#/Vol] 7.0 10*3/uL 4.4-11.0 [facility] Determination of erythrocyte mean corpuscular volume (MCV)Ordered By: Nic Chan on 07-22-2023 MCV (RBC) [Entitic vol] 89.2 fL 81-[address] [facility] Erythrocyte distribution wid th ratioOrdered By: Nic Chan on 07-22-2023 Erythrocyte distribution width (RBC) [Ratio] 12.5 % 11.6-14.6 [facility] Erythrocyte distribution wid th standard deviationOrdered By: Nic Chan on 07-22-2023 Erythrocyte distribution width (RBC) [Entitic vol] 41.2 fL 35.1-43.9 [facility] Hematocrit Auto (Bld) [Volum e fraction]Ordered By: iNc Chan on 07-22-2023 Hematocrit (Bld) [Volume fraction] 44.4 % 37-47 [facility] Immature granulocytes/100 WB C Auto (Bld)Ordered By: Nic Chan on 07-22-2023 Immature granulocytes/100 WBC (Bld) 0.400 % 0.0-0.9 [facility] Comment on above: IG% - Immature Granu locytes (promyelocytes, myelocytes and metamyelocytes) > 1% indicates that a LEFT SHIFT is Present. Laboratory - Chemistry and C hemistry - challengeOrdered By: Nic Chan on 07-22-2023 Albumin/Globulin [Mass ratio] 0.9 {ratio} 0.9-2.4 [facility] ALP [Catalytic activity/Vol] 100 U/L 45-117 [facility] ALT [Catalytic activity/Vol] 29 U/L 13-56 [facility] CO2 [Moles/Vol] 28.0 mmol/L 21.0-32.0 [facility] Globulin (S) [Mass/Vol] 4.5 g/dL 2.2-4.[address] [facility] Lipase [Catalytic activity/Vol] 34 U/L 13-75 [facility] Comment on above: Please note:LIPASE r evised reference range effective 22. New Lipase methodology. Expected to produce lower values than the previous assay method. NEW Reference Range: 13 - 75 U/L Urea nitrogen/Creatinine [Mass ratio] 14.3 mg/mg 10-20 [facility] Laboratory - Hematology and Cell countsOrdered By: Nic Chan on 07-22-2023 MCH (RBC) [Entitic mass] 30.1 pg 27.0-32.0 [facility] MCHC (RBC) [Mass/Vol] 33.8 g/dL 32-36 [facility] Nucleated RBC/100 WBC (Bld) [Ratio] 0 % 0-5 [facility] Platelet mean volume (Bld) [Entitic vol] 10.4 fL 6.2-12.0 [facility] Platelets (Bld) [#/Vol] 328 10*3/uL 150-450 [facility] No Panel InformationOrdered By: Nic Chan on 07-22-2023 Estimated Creatinine Clearance Calc 122.01 ml/min [facility] Estimated GFR (MDRD) Amer 109 mL/min >60 [facility] Comment on above: GFR Calc Estimated GFR (MDRD) Non-Af Amer 90 mL/min >60 [facility] Comment on above: Non- GFR Calc RBC Auto (Bld) [#/Vol]Ordere d By: Nic Chan on 07-22-2023 RBC (Bld) [#/Vol] 4.98 10*6/uL 4.2-5.4 [facility] Serum or plasma calcium sue urement (mass/volume)Ordered By: Nic Chan on 07-22-2023 Calcium [Mass/Vol] 10.0 mg/dL 8.5-10.1 [facility] Serum or plasma choriogonado tropin detectionOrdered By: Nic Chan on 07-22-2023 HCG ( test) Ql Negative [facility] Serum or plasma creatinine m easurement (mass/volume)Ordered By: Nic Chan on 07-22-2023 Creatinine [Mass/Vol] 0.84 mg/dL 0.55-1.02 [facility] Comment on above: The validity of the calculated GFR & GFRAA in patients over 70 years has not been determined. Clinical correlation is essential. Serum or plasma urea nitroge n measurement (mass/volume)Ordered By: Nic Chan on 07-22-2023 Urea nitrogen [Mass/Vol] 12 mg/dL 7-18 [facility] Thin prep Papanicolaou smear with manual screeningOrdered By: Nic Chan on 07-22-2023 Thin prep Papanicolaou smear with manual screening 4.0 g/dL 3.2-5.0 [facility] Thin prep Papanicolaou smear with manual screening 22 U/L 15-37 [facility] Thin prep Papanicolaou smear with manual screening 4 5-15 [facility] [facility] [place] Provider Note - ED v3on 06-26 Provider Note - ED v3 Provider Note: Chart Review: ED NOTES ED NOTES: This patient was seen in conjunction with a PA student. The history and exam was performed by myself. The student did perform some documentation, however this was completely reviewed and edited by myself, and reflects my own history and examination. HPI: This is a 20yo female presenting to the ED with complaints of right thumb pain. Reports that she has been having pain in all of her fingers for the last 3 weeks. States that pain was sharp and would come and go. States that she had an appointment scheduled to see someone for this next week, however her pain has worsened. Reports that this morning she woke up with significant pain in her right thumb that limited her from moving it. States that she additionally noticed more swelling in her right hand and had to move her engagement ring to the left hand. States that her pain is mostly in her thumb and is elicited with movement. States that when she woke up this morning her index finger was purple. Reports that this has never happened before. Denies any fever, chills or sweats. PMH: Denies Family HX: Denies any significant/pertinent family history. Social Hx: Denies EtOH or illicits. Non-smoker. Review of Systems: Gen.: weight loss, fatigue, anorexia, insomnia, fever Cardiac: chest pain, palpitations, syncope, near syncope Pulmonary: shortness of breath, cough, hemoptysis GI: abdominal pain, nausea, vomiting, diarrhea Musculoskeletal: +hand pain Neuro: loss of function, sensory deficits, dizziness Review of systems is otherwise negative unless stated above or in history of present illness. Physical Exam: General: Vitals noted, no distress. Afebrile. Alert and oriented x3. Cardiac: Regular rate and rhythm. No murmur.. Pulmonary: Lungs clear bilaterally with good aeration. No adventitious breath sounds. Extremities: Exam of the right hand shows edema of the thenar eminence and 1st MCP, tender throughout the thumb with active and passive ROM and palpation. The skin is intact. The DIP of the 2nd digit is slightly dusky. Is neurovascularly intact distally. Normal capillary refill in all digits. Specifically, has full strength with flexion and extension of the remaining digits. Is nontender over the wrist. Sensation intact throughout. Remainder the extremity is nontender. Negative Phalen's. Negative Tinel's. Skin: No rash Neuro: No focal neurologic deficits ED Course / Medical Decision-Making: Differential Diagnosis: Is extensive but includes fracture, dislocation, nonvisualized/occult fracture, tendon/ligament injury, soft tissue injury, etc. 20yo female presenting to the ED with complaints of right thumb pain. Atraumatic in nature. Exam of the right hand shows edema of the thenar eminence and 1st MCP, tender throughout the thumb with active and passive ROM and palpation. The skin is intact. The DIP of the 2nd digit is slightly dusky. Is neurovascularly intact distally. Normal capillary refill in all digits. Has strong pulses. X-ray unremarkable. Will treat with thumb spica. Given Tylenol and ibuprofen here. Advised NSAIDs for home. Has orthopedic appointment already for next week advised to keep that appointment. Instructed to return to the nearest ED if any concerns or new or worsening symptoms. Patient verbalized understanding and agreement with plan. Discharged in stable condition. Impression: 1. see diagnosis Plan: Homegoing. I discussed the differential, results and discharge plan with the patient and/or family/friend/caregiv er if present. I emphasized the importance of follow-up with the physician I referred them to in the timeframe recommended. I explained reasons for the patient to return to the Emergency Department. Questions were addressed. They understand return precautions and discharge instructions. The patient and/or family/friend/caregiv er expressed understanding. Disposition: Discharge Disclaimer: This note was dictated using speech recognition software. An attempt at proofreading was made to minimize errors. Minor errors in aircraft time clerk may be present. Please call if questions. HISTORY OF PRESENTING ILLNESS SHWETA is a 20 year old Female and was seen by me at 11-Jul-2021 18:27 for a chief complaint of finger pain/injury (can't move right thumb, index finger is unable to move, pain in hand for 3 weeks)(1). The historian is the patient. Triage Information: Most recent Vital Sign Value Date Temp (F): 97.8 07-11-2021 18:32 Temp (C): 36.6 07-11-2021 18:32 Heart Rate (beats/min): 85 07-11-2021 18:32 Respirations (breaths/min): 16 07-11-2021 18:32 SpO2 (%): 99 07-11-2021 18:32 BP Systolic (mm Hg): 118 07-11-2021 18:32 BP Diastolic (mm Hg): 79 07-11-2021 18:32 PAST MEDICAL HISTORY ALLERGIES/INTOLERANCE S: No Known Allergies HEALTH HISTORY: No documented data. OUTPATIENT MEDICATIONS: Home Medica (more content not included)... Normal [facility] Risk Screen - Adult Emergenc yon 07-11-2021 Risk Screen - Adult Emergency Preferred Language: Preferred Language: Preferred Language for Discussing Health Care (patient/designee)Eng sasha Advanced Directives: Advance Directive/DNRno Family Violence Adult: Abuse Screen: Are you or have you been threatened or abused physically, emotionally, or sexually by anyoneno Learning Assessment (Patient): Learning Assessment (Patient): Patient is Able to be Assessed for Learningno Reason Unable to Assessacuity Learning Assessment (Other Learner): Learning Assessment (Other Learner): Other learner availableno Pressure Injury/TB/Substance: Pressure Injury: Do you have a coughno Smoking Statusoccasional user (use that is infrequent, sporadic, not on a daily basis) Tobacco Cessation Education (provide if tobacco use within the last 12 mos) patient declined Admission Risk Screen: Significant IndicatorsComplete CAGE: CAGE: Is this an injured patient at a Trauma Center [place]/English): no Electronic Signatures: Pamela Thayer (RN) (Signed 11-Jul-2021 18:35) Authored: Preferred Language, Advanced Directives, Family Violence Adult, Learning Assessment (Patient), Learning Assessment (Other Learner), Pressure Injury/TB/Substance, Pressure Injury, CAGE Last Updated: 11-Jul-2021 18:35 by Pamela Thayer (MEG) [facility] Triage - EDon 07-11-2021 Triage - ED Quick Triage: Are You no Are You Currently Breastfeedingno Chart Review: ARRIVAL INFORMATION Mode of Arrival: private vehicle CHIEF COMPLAINT SHWETA ARMENDARIZ is a Female patient with a chief complaint of finger pain/injury (can't move right thumb, index finger is unable to move, pain in hand for 3 weeks). Triage Date/Time: 11-Jul-2021 18:14 OSCAR: 4 Pain Rating (0-10): 10 = Severe Vital Signs: Temperature: 97.8F ( 36.6C) taken forehead Blood Pressure: 118/79 Mean: Heart Rate: 85 Respiratory Rate: 16 Pulse Oximetry: 99% on room air, no respiratory support. Height: 5 feet 6.00 inches. 167.6 CM Weight: 187.3 pounds. Calculated 85.0 kg. (stated) Calculated BMI (kg/m2): 30.260 Calculated BSA (m2) 1.99 [place] Coma Scale: Best Eye Response: (E4) spontaneous Best Motor Response: (M6) obeys commands Best Verbal Response: (V5) oriented Sourav Score: 15 Patient has homicidal thoughts: no Symptom Notes: . Symptoms Are POSITIVE For: bruising, difficulty bending, pain (describe) and decreased ROM. Symptoms Are Negative For: abrasion, bleeding, deformity, difficulty walking, numbness and tingling. Risk Screens Suicide Risk Screen In the Past Month: Have you wished you were or wished you could go to sleep and not wake up no In the Past Month: Have you had any actual thoughts of killing yourself no In Your Lifetime: Have you ever done anything, started to do anything, or prepared to do anything to end your life no Interventions: [place] Fall Interventions: LOW INTERVENTIONS: *patient oriented to surroundings and call system, * patient/family falls education completed and documented, *patients fall status communicated during bedside handoff, *whiteboard updated, *mode of toileting discussed with patient, *bed in low position with brakes locked, *call light in reach, * non-skid footwear TRAVEL HISTORY Travel History Coronavirus Screening: no exposure or symptoms Travel Exposure History: NO travel to International locations in the past 30 days PAIN Pain Scale Used: AUYR Pain Rating (0-10): 10 = Severe Past Medical History: Past Medical History Reviewedno Electronic Signatures: Pamela Thayer (RN) (Signed 11-Jul-2021 18:34) Entered: Risk Screens, Pain, Travel History, Chart Review, Scores, Past Medical History Authored: Quick Triage, Risk Screens, Pain, Travel History, Chart Review, Scores, Past Medical History Last Updated: 11-Jul-2021 18:34 by Pamela Thayer (RN) Normal [facility] CBC AND DIFFERENTIALon 05-18 % AUTOMATED IMMATURE GRAN 0.4 % Normal 0.0 - 0.9 [facility] Comment on above: Order Comment: fax: [phone] Result Comment: Gladys ture Granulocyte Count (IG) includes promyelocytes, myelocytes and metamyelocytes but does not include bands. Percent differential counts (%) should be interpreted in the context of the absolute cell counts (cells/L). Performed By: #### C BCDF #### [facility] [address] [place] [address] Basophils (Bld) [#/Vol] 0.04 10*3/uL Normal 0.00 - 0.1 0 [facility] Comment on above: Order Comment: fax: [phone] Performed By: #### C BCDF #### [facility] [address] [place] [address] Basophils/100 WBC (Bld) 0.4 % Normal 0.0 - 2.0 [facility] Comment on above: Order Comment: fax: [phone] Performed By: #### C BCDF #### [address] [address] Eosinophils (Bld) [#/Vol] 0.17 10*3/uL Normal 0.00 - 0.70 [facility] Comment on above: Order Comment: fax: [phone] Performed By: #### C BCDF #### [address] [address] Eosinophils/100 WBC (Bld) 1.9 % Normal 0.0 - 6.0 [facility] Comment on above: Order Comment: fax: [phone] Performed By: #### C BCDF #### [address] [address] Erythrocyte distribution width (RBC) [Ratio] 12.7 % Normal 11.5 - 14.5 [facility] Comment on above: Order Comment: fax: [phone] Performed By: #### C BCDF #### [address] [address] Hematocrit (Bld) [Volume fraction] 43.4 % Normal 36.0 - 46.0 [facility] Comment on above: Order Comment: fax: [phone] Performed By: #### C BCDF #### [address] [address] Hemoglobin (Bld) [Mass/Vol] 14.7 g/dL Normal 12.0 - 16.0 [facility] Comment on above: Order Comment: fax: [phone] Performed By: #### C BCDF #### [address] [address] Lymphocytes (Bld) [#/Vol] 2.16 10*3/uL Normal 1.20 - 4.80 [facility] Comment on above: Order Comment: fax: [phone] Performed By: #### C BCDF #### [address] [address] Lymphocytes/100 WBC (Bld) 23.7 % Normal 13.0 - 44.0 [facility] Comment on above: Order Comment: fax: [phone] Performed By: #### C BCDF #### [facility] [address] [place] [address] MCHC (RBC) [Mass/Vol] 33.9 g/dL Normal 32.0 - 36.0 [facility] Comment on above: Order Comment: fax: [phone] Performed By: #### C BCDF #### [facility] [address] [place] [address] MCV (RBC) [Entitic vol] 89 fL Normal 80 - 100 [facility] Comment on above: Order Comment: fax: [phone] Performed By: #### C BCDF #### [address] [address] Monocytes (Bld) [#/Vol] 0.68 10*3/uL Normal 0.10 - 1.0 0 [facility] Comment on above: Order Comment: fax: [phone] Performed By: #### C BCDF #### [address] [address] Monocytes/100 WBC (Bld) 7.5 % Normal 2.0 - 10.0 [facility] Comment on above: Order Comment: fax: [phone] Performed By: #### C BCDF #### [address] [address] Neutrophils (Bld) [#/Vol] 6.02 10*3/uL Normal 1.20 - 7.70 [facility] Comment on above: Order Comment: fax: [phone] Performed By: #### C BCDF #### [address] [address] Neutrophils/100 WBC (Bld) 66.1 % Normal 40.0 - 80.0 [facility] Comment on above: Order Comment: fax: [phone] Performed By: #### C BCDF #### [address] [address] Platelets (Bld) [#/Vol] 343 10*3/uL Normal 150 - 450 [facility] Comment on above: Order Comment: fax: [phone] Performed By: #### C BCDF #### [facility] [address] [place] [address] RBC 4.89 x10E12/L Normal 4.00 - 5.20 [facility] Comment on above: Order Comment: fax: [phone] Performed By: #### C BCDF #### [facility] [address] [place] [address] WBC (Bld) [#/Vol] 9.1 10*3/uL Normal 4.4 - 11.3 [facility] Comment on above: Order Comment: fax: [phone] Performed By: #### C BCDF #### [facility] [address] [place] [address] TYPE + SCREENon 05-18-2021 ABO TYPE O Normal [facility] Comment on above: Order Comment: fax: [phone] Performed By: #### T +S #### [facility] [address] [place] [address] RH TYPE Positive Normal [facility] Comment on above: Order Comment: fax: [phone] Performed By: #### T +S #### [address] [address] PREG UTERUS UP TO 1ST TRIMES Jacqueline 05-09-2021 PREG UTERUS UP TO 1ST TRIMESTER Patient Name: SHWETA ARMENDARIZ STUDY: PREG UTERUS UP TO 1ST TRIMESTER; TRANS VAG PREG UTERUS 05/09/2021 3:56 pm INDICATION: 20 y/o F with Blighted ovum and nonhydatidiform mole. LMP: 02/23/2021, estimated gestational age 10 weeks 5 days, clinical LOULOU 11/30/2021 COMPARISON: None. ACCESSION NUMBER(S): [id number]; [id number] ORDERING CLINICIAN: BROOKLYNN FONTENOT TECHNIQUE: Routine ultrasound of the pelvis was performed. Evaluation of the female pelvis was performed by transabdominal and subsequent transvaginal technique. Static images were obtained for remote interpretation. FINDINGS: UTERUS AND GESTATIONAL SAC: Uterus: Anteverted uterus appears normal in morphology and measures 9.2 x 6.2 x 8.1 cm. The cervix is closed. Intrauterine gestation(s): Single Mean gestational sac diameter: 3.2 cm; estimated gestational age 8 weeks 4 days. Embryo/ crown-rump length: 1.8 cm; estimated gestational age 8 weeks 3 days + / - 1 week. Yolk sac: No definite yolk sac visualized. A small solid-appearing echogenic focus seen at the margin of the gestational sac on cine clip measuring 3 mm may be an abnormal yolk sac, such as on image number 60 of 63, on the 3rd cine clip obtained. heart motion: No cardiac motion is detected on real-time imaging, as well as with M-mode and power Doppler. Subchorionic hemorrhage: No subchorionic hemorrhage. Placenta noted to be formed anteriorly, with some small hypoechoic spaces, likely representing hydropic degeneration of chorionic villi. ADNEXA/OVARIES: No suspicious adnexal mass. RIGHT OVARY: Right ovary is normal in size, 2.8 x 1.2 x 1 cm, with normal Doppler flow. LEFT OVARY: Mildly prominent left ovary measures 4 x 3.4 x 3.2 cm and contains a 3.1 cm simple corpus luteal cyst. There is normal Doppler flow in the ovary. FREE FLUID: Trace simple free fluid in the cul-de-sac. IMPRESSION: 1. Single nonviable intrauterine , estimated gestational age 8 weeks 3 days based on crown-rump length, with no cardiac activity. Closed cervix. Intact gestational sac without evidence of significant perigestational hemorrhage. Findings consistent with missed . 2. Probable mild early hydropic degeneration of chorionic villi, without evidence of a molar . 3. No normal appearing yolk sac is seen. A small echogenic 3 mm focus at the margin of the gestational sac may be a calcified/abnormal yolk sac. 4. Corpus luteal cyst noted on the left ovary. The critical information above was relayed directly by me by telephone to BROOKLYNN FONTENOT on 05/09/2021 at 4:29 pm with readback verification. Electronically signed by: URIEL WHITE MD [facility] TRANS VAG PREG UTERUS 04-25 TRANS VAG PREG UTERUS Patient Name: SHWETA ARMENDARIZ STUDY: PREG UTERUS UP TO 1ST TRIMESTER; TRANS VAG PREG UTERUS 05/09/2021 3:56 pm INDICATION: 20 y/o F with Blighted ovum and nonhydatidiform mole. LMP: 02/23/2021, estimated gestational age 10 weeks 5 days, clinical LOULOU 11/30/2021 COMPARISON: None. ACCESSION NUMBER(S): [id number]; [id number] ORDERING CLINICIAN: BROOKLYNN FONTENOT TECHNIQUE: Routine ultrasound of the pelvis was performed. Evaluation of the female pelvis was performed by transabdominal and subsequent transvaginal technique. Static images were obtained for remote interpretation. FINDINGS: UTERUS AND GESTATIONAL SAC: Uterus: Anteverted uterus appears normal in morphology and measures 9.2 x 6.2 x 8.1 cm. The cervix is closed. Intrauterine gestation(s): Single Mean gestational sac diameter: 3.2 cm; estimated gestational age 8 weeks 4 days. Embryo/ crown-rump length: 1.8 cm; estimated gestational age 8 weeks 3 days + / - 1 week. Yolk sac: No definite yolk sac visualized. A small solid-appearing echogenic focus seen at the margin of the gestational sac on cine clip measuring 3 mm may be an abnormal yolk sac, such as on image number 60 of 63, on the 3rd cine clip obtained. heart motion: No cardiac motion is detected on real-time imaging, as well as with M-mode and power Doppler. Subchorionic hemorrhage: No subchorionic hemorrhage. Placenta noted to be formed anteriorly, with some small hypoechoic spaces, likely representing hydropic degeneration of chorionic villi. ADNEXA/OVARIES: No suspicious adnexal mass. RIGHT OVARY: Right ovary is normal in size, 2.8 x 1.2 x 1 cm, with normal Doppler flow. LEFT OVARY: Mildly prominent left ovary measures 4 x 3.4 x 3.2 cm and contains a 3.1 cm simple corpus luteal cyst. There is normal Doppler flow in the ovary. FREE FLUID: Trace simple free fluid in the cul-de-sac. IMPRESSION: 1. Single nonviable intrauterine , estimated gestational age 8 weeks 3 days based on crown-rump length, with no cardiac activity. Closed cervix. Intact gestational sac without evidence of significant perigestational hemorrhage. Findings consistent with missed . 2. Probable mild early hydropic degeneration of chorionic villi, without evidence of a molar . 3. No normal appearing yolk sac is seen. A small echogenic 3 mm focus at the margin of the gestational sac may be a calcified/abnormal yolk sac. 4. Corpus luteal cyst noted on the left ovary. The critical information above was relayed directly by me by telephone to BROOKLYNN FONTENOT on 05/09/2021 at 4:29 pm with readback verification. Electronically signed by: URIEL WHITE MD Normal [facility] GC + CHLAMYDIA BY AMPLIFIED DETECTIONon 04-15-2021 CHLAMYDIA TRACH.,AMPLIFIED Negative Normal Negative [facility] Comment on above: Result Comment: The APTIMA Combo 2 assay is FDA-approved for Chlamydia trachomatis and Neisseria gonorrhoeae testing on female endocervical and vaginal swabs, ThinPrep liquid pap samples, male urine samples and urethral swabs. Performance characteristics for Chlamydia trachomatis and Neisseria gonorrhoeae testing on specific eol-QLV-jeupwyqq sample types (female urine samples) have been validated by [facility]. This laboratory is certified by CLIA to perform high complexity testing. Samples from all other sites are not validated for this method. This assay has not been FDA-approved or validated for this sample type. Results should be interpreted with caution in conjunction with additional clinical and laboratory findings. Performed By: #### G [facility] #### [facility] [address] [place] [id number] N.GONORRHEA,AMPLIFIED Negative Normal Negative [facility] Comment on above: Result Comment: The APTIMA Combo 2 assay is FDA-approved for Chlamydia trachomatis and Neisseria gonorrhoeae testing on female endocervical and vaginal swabs, ThinPrep liquid pap samples, male urine samples and urethral swabs. Performance characteristics for Chlamydia trachomatis and Neisseria gonorrhoeae testing on specific hgk-DEL-akjotvpl sample types (female urine samples) have been validated by [facility]. This laboratory is certified by CLIA to perform high complexity testing. Samples from all other sites are not validated for this method. This assay has not been FDA-approved or validated for this sample type. Results should be interpreted with caution in conjunction with additional clinical and laboratory findings. Performed By: #### G [facility] #### [facility] [address] [place] [address] TRICHOMONAS,NUCLEIC ACID DET ECTIONon 04-15-2021 TRICHOMONAS VAGINALIS Negative Normal Negative [facility] Comment on above: Result Comment: The APTIMA Trichomonas vaginalis assay is FDA-approved for testing on female endocervical swabs, vaginal swabs, and ThinPrep liquid pap samples. Performance characteristics for Trichomonas vaginalis on specific san-MOJ-ogfltuhw sample types (female and male urine and male urethral swabs) have been validated by [facility]. This laboratory is certified by CLIA to perform high complexity testing. Samples from all other sites are not validated for this method. This assay has not been FDA-approved or validated for this sample type. Results should be interpreted with caution in conjunction with additional clinical and laboratory findings. Performed By: #### T IBRAHIMA #### [facility] [address] [place] [address] GC + CHLAMYDIA BY AMPLIFIED DETECTIONon 04-14-2021 Lab Specimen Source Source, Unspecified Normal [facility] Comment on above: Performed By: #### G CCHA #### [facility] [address] [place] [id number] Performed By: #### T IBRAHIMA #### [facility] [address] [place] [id number] Vital Signs Date Time Vital Sign Value Performing Clinician Facility 11-29-2024 11:02040 Body height 165.1 cm Susan Palomo MA [facility] [employer], [facility]. 11-29-2024 11:02-0400 Body mass index (BMI) [Ratio] 39.94 kg/m2 Susan Palomo MA [facility] [employer], [facility]. 11-29-2024 11:02-0400 Body surface area Derived from formula 2.14 m2 Susan Palomo MA [facility] [employer], [facility]. 11-29-2024 11:02-040 Body weight 108.86 kg Susan Palomo MA [facility], [facility].; [employer] [facility], [facility]. 11-29-2024 11:02-0400 Diastolic blood pressure 79 mm[Hg] Susan Palomo MA [facility], [facility].; [email or web address]. Comment on above: Patient Position: Sitting; Cuff Location : Left Arm; Cuff Size: Standard 11-29-2024 11:02-0400 Heart rate 79 /min Susan Palomo MA [employer] [facility]. Comment on above: Pattern: Regular 11-29-2024 11:02-0400 Systolic blood pressure 112 mm[Hg] Susan Palomo MA [employer] [facility]. Comment on above: Patient Position: Sitting; Cuff Location : Left Arm; Cuff Size: Standard 11-02-2024 10:42-0400 Body height 165.1 cm Jass Santos RN [employer] 11-02-2024 10:42-0400 Body mass index (BMI) [Ratio] 39.94 kg/m2 Jass Santos RN [employer] 11-02-2024 10:42-0400 Body surface area Derived from formula 2.14 m2 Jass Santos RN [employer].; [facility]. 11-02-2024 10:42-0400 Body weight 108.86 kg Jass Santos RN [employer] 11-02-2024 10:42-0400 Diastolic blood pressure 85 mm[Hg] Jass Santos RN [employer] [facility]. Comment on above: Patient Position: Sitting; Cuff Location : Left Arm; Cuff Size: Standard 11-02-2024 10:42-0400 Heart rate 101 /min Jass Santos RN [employer] [facility]. Comment on above: Pattern: Regular 11-02-2024 10:42-0400 Systolic blood pressure 122 mm[Hg] Jass Santos RN [employer] [facility]. Comment on above: Patient Position: Sitting; Cuff Location : Left Arm; Cuff Size: Standard 09-13-2024 09:14-0400 Body height 165.1 cm Susan Palomo MA [employer] [facility]. 09-13-2024 09:14-0400 Body mass index (BMI) [Ratio] 38.77 kg/m2 Susan Palomo MA [facility] [employer]. 09-13-2024 09:14-0400 Body surface area Derived from formula 2.11 m2 Susan [facility]omo MA [facility] [employer] 09-13-2024 09:14-0400 Body weight 105.69 kg Susan Palomo MA [facility] [employer]. 09-13-2024 09:14-0400 Diastolic blood pressure 70 mm[Hg] Susan Dewey CHOUDHURY [facility] [employer]. Comment on above: Patient Position: Sitting; Cuff Location : Left Arm; Cuff Size: Standard 09-13-2024 09:14-0400 Heart rate 73 /min Susan Palomo MA [facility] [employer]. Comment on above: Pattern: Regular 09-13-2024 09:14-0400 Systolic blood pressure 106 mm[Hg] Susan Palomo MA [facility] [employer]. Comment on above: Patient Position: Sitting; Cuff Location : Left Arm; Cuff Size: Standard 07-28-2024 09:37-0500 Body height 165.1 cm Jass Santos RN [facility] [employer] 07-28-2024 09:37-0500 Body mass index (BMI) [Ratio] 39.6 kg/m2 Jass Santos RN [facility] [employer]. 07-28-2024 09:37-0500 Body surface area Derived from formula 2.13 m2 Jass Santos RN [facility] [employer] 07-28-2024 09:37-0500 Body weight 107.96 kg Jass Santos RN [place] [employer]. 07-28-2024 09:37-0500 Diastolic blood pressure 87 mm[Hg] Jass Santos RN [place] [employer]. Comment on above: Patient Position: Sitting; Cuff Location : Left Arm; Cuff Size: Standard 07-28-2024 09:37-0500 Heart rate 79 /min Jass Santos RN [employer]. Comment on above: Pattern: Regular 07-28-2024 09:37-0500 Systolic blood pressure 130 mm[Hg] Jass Santos RN [employer]. Comment on above: Patient Position: Sitting; Cuff Location : Left Arm; Cuff Size: Standard 07-14-2024 10:03-0500 Body weight 116.12 kg Jass Santos RN [employer]. 07-14-2024 10:03-0500 Diastolic blood pressure 87 mm[Hg] Jass Santos RN [employer] [facility]. Comment on above: Patient Position: Sitting; Cuff Location : Left Arm; Cuff Size: Standard 07-14-2024 10:03-0500 Heart rate 118 /min Jass Santos RN [employer]. Comment on above: Pattern: Regular 07-14-2024 10:03-0500 Systolic blood pressure 119 mm[Hg] Jass Santos RN [employer]. Comment on above: Patient Position: Sitting; Cuff Location : Left Arm; Cuff Size: Standard 06-30-2024 11:43-0500 Body weight 115.21 kg Jass Santos RN [employer]. 06-30-2024 11:43-0500 Diastolic blood pressure 84 mm[Hg] Jass Santos RN [employer]. Comment on above: Patient Position: Sitting; Cuff Location : Left Arm; Cuff Size: Large 06-30-2024 11:43-0500 Heart rate 110 /min Jass Santos RN [employer]. Comment on above: Pattern: Regular 06-30-2024 11:43-0500 Systolic blood pressure 120 mm[Hg] Jass Santos RN [employer]. Comment on above: Patient Position: Sitting; Cuff Location : Left Arm; Cuff Size: Large 06-08-2024 10:39-0500 Body weight 110.68 kg Susan Palomo MA [employer]. 06-08-2024 10:39-0500 Diastolic blood pressure 75 mm[Hg] Susan Palomo MA [employer]. Comment on above: Patient Position: Sitting; Cuff Location : Left Arm; Cuff Size: Standard 06-08-2024 10:39-0500 Heart rate 79 /min Susan Palomo MA [employer]. Comment on above: Pattern: Regular 06-08-2024 10:39-0500 Systolic blood pressure 116 mm[Hg] Susan Palomo MA [employer]. Comment on above: Patient Position: Sitting; Cuff Location : Left Arm; Cuff Size: Standard 05-20-2024 08:42-0500 Body weight 109.32 kg Jass Santos RN [employer]. 05-20-2024 08:42-0500 Diastolic blood pressure 73 mm[Hg] Jass Santos RN [employer]. Comment on above: Patient Position: Sitting; Cuff Location : Left Arm; Cuff Size: Large 05-20-2024 08:42-0500 Heart rate 105 /min Jass Santos RN [employer]. Comment on above: Pattern: Regular 05-20-2024 08:42-0500 Systolic blood pressure 108 mm[Hg] Jass Santos RN [facility]. Comment on above: Patient Position: Sitting; Cuff Location : Left Arm; Cuff Size: Large 04-21-2024 08:13-0500 Body weight 105.24 kg Jass Santos RN [facility].; [facility]. 04-21-2024 08:13-0500 Diastolic blood pressure 74 mm[Hg] Jass Santos RN [employer] [employer] Comment on above: Patient Position: Sitting; Cuff Location : Left Arm; Cuff Size: Standard 04-21-2024 08:13-0500 Heart rate 88 /min Jass Santos RN [place] [employer]. Comment on above: Pattern: Regular 04-21-2024 08:13-0500 Systolic blood pressure 115 mm[Hg] Jass Santos RN [place] [employer]. Comment on above: Patient Position: Sitting; Cuff Location : Left Arm; Cuff Size: Standard 03-22-2024 09:10-0400 Body weight 103.42 kg [employer] Work Phone: [place] [employer]. 03-22-2024 09:100400 Diastolic blood pressure 74 mm[Hg] ACAL [employer] PYTHON ENGINEER Work Phone: [place] [employer]. Comment on above: Patient Position: Sitting; Cuff Location : Left Arm; Cuff Size: Large 03-22-2024 09:10-0400 Heart rate 92 /min [facility] PYTHON ENGINEER Work Phone: [place] [employer]. Comment on above: Pattern: Regular 03-22-2024 09:10-0400 Systolic blood pressure 116 mm[Hg] ACAL [employer] PYTHON ENGINEER Work Phone: [place] [employer]. Comment on above: Patient Position: Sitting; Cuff Location : Left Arm; Cuff Size: Large 02-17-2024 10:0400 Body weight 100.7 kg Jass Santos RN [employer] [employer] 02-17-2024 10:19-0400 Diastolic blood pressure 77 mm[Hg] Jass Santos RN [place] [employer]. Comment on above: Patient Position: Sitting; Cuff Location : Left Arm; Cuff Size: Standard 02-17-2024 10:19-0400 Heart rate 111 /min Jass Santos RN [facility].; [facility] [facility]. Comment on above: Pattern: Regular 02-17-2024 10:19-0400 Systolic blood pressure 111 mm[Hg] Jass Santos RN [facility]. Comment on above: Patient Position: Sitting; Cuff Location : Left Arm; Cuff Size: Standard 01-19-2024 10:39-0400 Body weight 102.51 kg Ana Smith LPN [facility].; [facility]. 01-19-2024 10:39-0400 Diastolic blood pressure 72 mm[Hg] Ana Smith LPN [facility].; [facility]. Comment on above: Patient Position: Sitting; Cuff Location : Left Arm; Cuff Size: Standard 01-19-2024 10:39-0400 Heart rate 103 /min Ana Smith LPN [facility].; [place] [employer]. Comment on above: Pattern: Regular 01-19-2024 10:39-0400 Systolic blood pressure 113 mm[Hg] Ana Smith LPN [facility].; [facility] [facility]. Comment on above: Patient Position: Sitting; Cuff Location : Left Arm; Cuff Size: Standard 12-29-2023 07:52-0400 Body height 165.[address] [facility] Work Phone: [facility].; [facility] [facility]. 12-29-2023 07:52-0400 Body mass index (BMI) [Ratio] 38.11 kg/m2 [facility] Work Phone: [facility].; [facility] [facility]. 12-29-2023 07:52-0400 Body surface area Derived from formula 2.[address] [facility] Work Phone: [facility].; [facility]. 12-29-2023 07:52-0400 Body weight 103.[address] [facility] Work Phone: [facility] [employer] 12-29-2023 07:52-0400 Diastolic blood pressure 69 mm[Hg] Antonina Steffany PYTHON ENGINEER Work Phone: [employer]; [employer] Comment on above: Patient Position: Sitting; Cuff Location : Left Arm; Cuff Size: Standard 12-29-2023 07:52-0400 Heart rate 78 /min Antonina Steffany PYTHON ENGINEER Work Phone: [employer]; [email or web address] Comment on above: Pattern: Regular 12-29-2023 07:52-0400 Systolic blood pressure 105 mm[Hg] Antonina Steffany PYTHON ENGINEER Work Phone: [employer]; [email or web address] Comment on above: Patient Position: Sitting; Cuff Location : Left Arm; Cuff Size: Standard 07-22-2023 19:57-0500 Body temperature 97.6 [degF] [facility] 07-22-2023 19:57-0500 Diastolic blood pressure 69 mm[Hg] [facility] 07-22-2023 19:57-0500 Heart rate 83 /min [facility] 07-22-2023 19:57-0500 Respiratory rate 17 /min [facility] 07-22-2023 19:57-0500 SaO2% (BldA) [Mass fraction] 98 % [facility] 07-22-2023 19:57-0500 Systolic blood pressure 115 mm[Hg] [facility] 07-22-2023 17:28-0500 Body height 165.1 cm [facility] 07-22-2023 17:28-0500 Body mass index (BMI) [Ratio] 36.1 kg/m2 [facility] 07-22-2023 17:28-0500 Body weight 98.42 kg [facility] 07-11-2021 22:27-0500 Diastolic blood pressure 84 mm[Hg] No Pcp Required [facility] 07-11-2021 22:27-0500 Heart rate 74 /min No Pcp Required [facility] 07-11-2021 22:27-0500 Respiratory rate 16 /min No Pcp Required [facility] 07-11-2021 22:27-0500 SaO2% (BldA) [Mass fraction] 99 % No Pcp Required [facility] 07-11-2021 22:27-0500 Systolic blood pressure 122 mm[Hg] No Pcp Required [facility] 07-11-2021 20:32-0500 Body height 167.6 cm No Pcp Required [facility] 07-11-2021 20:32-0500 Body temperature 97.88 [degF] No Pcp Required [facility] 07-11-2021 20:32-0500 Body weight 85 kg No Pcp Required [facility] Encounters Encounter Date Encounter Type Care Provider Facility Start: 01-04-2025 ambulatory Patience Mccrary Facility: [facility] Start: 12-17-2024 End: 12-17-2024 Patient encounter procedure Patience BUTLERC -[facility] Work Phone: Start: 12-17-2024 End: 12-17-2024 ambulatory Isaura Conn NP-C Work Phone: -[facility] Start: 11-29-2024 End: 11-29-2024 Office outpatient visit 15 minutes Crystal Uptain CNM Work Phone: [facility] Start: 11-02-2024 End: 11-02-2024 Procedure Crystal Uptain CNM Work Phone: [facility]. Start: 11-02-2024 Review Crystal Uptain CNM Work Phone: [facility] [email or web address]. Start: 10-25-2024 ambulatory Patience Mccrary Facility: [facility] Start: 10-11-2024 End: 10-11-2024 Patient encounter procedure Patience Mccrary NP-C -[facility] Work Phone: Start: 10-11-2024 End: 10-11-2024 ambulatory Isaura Conn NP-C Work Phone: [facility] Work Phone: Start: 09-25-2024 End: 09-25-2024 Patient encounter procedure Patience MATTSON -[facility] Work Phone: Start: 09-24-2024 End: 09-24-2024 Patient encounter procedure Patience MATTSON -[facility] Work Phone: Start: 09-24-2024 End: 09-25-2024 ambulatory Isaura Conn ACCESS RN Facility:[facility] Start: 09-24-2024 End: 09-24-2024 ambulatory Isaura Conn ACCESS RN Facility:[facility] Start: 09-13-2024 Follow-up encounter Crystal Up tain CNM Work Phone: [facility] Start: 09-13-2024 End: 09-13-2024 Office outpatient visit 40 minutes Crystal Uptain CNM Work Phone: [facility] Start: 08-26-2024 End: 08-26-2024 ambulatory ISAURA TONY [facility] Start: 07-28-2024 End: 07-28-2024 Office outpatient visit 15 minutes Crystal Uptain CNM Work Phone: [facility] Start: 07-19-2024 End: 07-22-2024 Evaluation and management of inpatient CRYSTAL CNM [facility] Start: 07-14-2024 End: 07-14-2024 Office outpatient visit 15 minutes Crystal Uptain CNM Work Phone: [facility] Start: 07-14-2024 Review Crystal Uptain CNM Work Phone: [facility] Start: 07-09-2024 End: 07-09-2024 ambulatory ISAURA TONY [facility] Start: 06-30-2024 ambulatory [facility] Start: 06-30-2024 End: 06-30-2024 Office outpatient visit 15 minutes Crystal Uptain CNM Work Phone: [facility] Start: 06-30-2024 Review Crystal Uptain CNM Work Phone: [employer] Start: 06-08-2024 End: 06-08-2024 Office outpatient visit 15 minutes Crystal Uptain CNM Work Phone: [employer] Start: 05-20-2024 End: 05-20-2024 Patient encounter procedure Crystal Uptain CNM Work Phone: [employer]. Start: 05-20-2024 Review Crystal Uptain CNM Work Phone: [employer]. Start: 04-21-2024 End: 04-21-2024 Office outpatient visit 15 minutes Crystal Uptain CNM Work Phone: [employer]. Start: 04-21-2024 Review Crystal Uptain CNM Work Phone: [employer] Start: 04-12-2024 End: 04-12-2024 ambulatory CRYSTAL CNM [facility] Start: 03-22-2024 End: 03-22-2024 Patient encounter procedure Crystal Uptain CNM Work Phone: [employer] Start: 03-22-2024 Review Crystal Uptain CNM Work Phone: [employer] Start: 03-09-2024 End: 03-09-2024 ambulatory CRYSTAL CNM UPTAIN [facility] Start: 02-17-2024 End: 02-17-2024 Office outpatient visit 15 minutes Crystal Uptain CNM Work Phone: [facility]. Start: 02-17-2024 Review Crystal Uptain CNM Work Phone: [facility] Start: 02-02-2024 End: 02-02-2024 Orders Crystal Uptain CNM Work Phone: [employer] Start: 02-02-2024 End: 02-02-2024 ambulatory CRYSTAL CNM UPTAIN [facility] Start: 01-19-2024 End: 01-19-2024 Office outpatient visit 15 minutes Crystal Uptain CNM Work Phone: [facility] Start: 12-29-2023 End: 12-30-2023 Office outpatient visit 25 minutes Crystal Uptain CNM Work Phone: [facility] Start: 12-29-2023 Review Crystal Uptain CNM Work Phone: [facility] Start: 07-22-2023 End: 07-22-2023 Emergency department patient visit [facility] Work Phone: Start: 05-02-2023 ambulatory ISAURA CONN [facility] Start: 07-11-2021 End: 07-11-2021 Emergency department patient visit [facility] Procedures Date Procedure Procedure Detail Performing Clinician Start: 11-02-2024 End: 11-02-2024 Insertion intrauterine device iud Crystal K Uptain CNM Work Phone: Start: 09-24-2024 Endomysial antibody IgA level Isaura Conn ACCESS RN-C Work Phone: Start: 09-13-2024 End: 09-09-2024 Screening for depression performed Crystal K Uptain CNM Work Phone: Start: 07-20-2024 Extraction of Produc ts of Conception, Low Cervical, Open Approach CRYSTAL UPTAIN Start: 07-20-2024 Introduction of Othe r Hormone into Peripheral Vein, Percutaneous Approach CRYSTAL UPTAIN Start: 07-14-2024 End: 07-14-2024 Ob care antepartum vag dlvr & Crystal K Uptain CNM Work Phone: Start: 06-30-2024 End: 06-30-2024 Ob care antepartum vag dlvr & Crystal K Uptain CNM Work Phone: Start: 06-08-2024 End: 06-08-2024 Ob care antepartum vag dlvr & Crystal K Uptain CNM Work Phone: Start: 05-20-2024 End: 05-20-2024 Ob care antepartum vag dlvr & Crystal K Uptain CNM Work Phone: Start: 04-21-2024 End: 04-21-2024 Ob care antepartum vag dlvr & Crystal K Uptain CNM Work Phone: Start: 03-22-2024 End: 03-24-2024 Us preg uterus after 1st trimest 05/26 gestation Jadon Sanchez MD Work Phone: Start: 03-22-2024 End: 03-22-2024 Ob care antepartum vag dlvr & Jadon Sanchez MD Work Phone: Start: 02-17-2024 End: 02-17-2024 Ob care antepartum vag dlvr & Crystal K Uptain CNM Work Phone: Start: 01-19-2024 End: 01-19-2024 Ob care antepartum vag dlvr & Crystal K Uptain CNM Work Phone: Start: 12-29-2023 End: 12-29-2023 Us uterus 14 wk transabdl 05/26 gestat Crystal K Uptain CNM Work Phone: Start: 12-29-2023 End: 12-29-2023 Ob care antepartum vag dlvr & Crystal K Uptain CNM Work Phone: Start: 07-22-2023 Computed tomography of abdomen and pelvis with intravenous contrast Start: 05-18-2021 Antibody screen Comment on above: Order Comment: fax: [phone] Performed By: #### T +S #### [address] [address] Appendectomy Antonina Matthews Work Phone: Appendectomy Ana Smith LPN Appendectomy Jass Santos RN Appendectomy Jass Santos RN Appendectomy Susan Palomo MA Appendectomy Jass Santos RN Appendectomy Jass Santos RN Appendectomy Susan Palomo MA Appendectomy Jass Santos RN Appendectomy Susan Palomo MA section Jass Thorne and RN Comment on above: 07/20/2024 section Susan maya MA Comment on above: 07/20/2024 section Jass Thorne and RN Comment on above: 07/20/2024 section Susan maya MA Comment on above: 07/20/2024 Cholecystectomy Antonina Jeter PYTHON ENGINEER Work Phone: Cholecystectomy Ana Trejo radha PYTHON ENGINEER Cholecystectomy Jass Araujo nd RN Cholecystectomy Jass Araujo nd RN Cholecystectomy Susan Hood MA Cholecystectomy Jass Araujo nd RN Cholecystectomy Jass Araujo nd RN Cholecystectomy Susan Palomo MA Cholecystectomy Jass Araujo nd RN Cholecystectomy Susan Palomo MA H/O: section S/P Robin Santos RN H/O: section S/P Cryst al Uptain CNM Work Phone: H/O: section S/P Cryst al K Uptain CNM Work Phone: H/O: section S/P Bev Palomo MA H/O: section S/P Robin Santos RN History of appendectomy History of append ectomy History of cholecystectomy History of cholecystectomy Microscopic examinat ion of cervical Papanicolaou smear Antonina Jeter PYTHON ENGINEER Work Phone: Comment on above: never Microscopic examinat ion of cervical Papanicolaou smear Ana Smith PYTHON ENGINEER Comment on above: never Microscopic examinat ion of cervical Papanicolaou smear Susan Palomo MA Comment on above: never Microscopic examinat ion of cervical Papanicolaou smear Susan Palomo MA Comment on above: never Microscopic examinat ion of cervical Papanicolaou smear Jass Santos RN Comment on above: never Microscopic examinat ion of cervical Papanicolaou smear Susan Palomo MA Comment on above: never Plan of Treatment Date Care Activity Detail Author Start: 12-05-2025 Patient encounter procedure Medical; RTN OFFICE VISIT - emmy lambert [facility]. Start: 05-Dec-2025 09:00-04:00 BRENDON Francisco Appointment Request [facility] Start: 11-29-2024 Patient encounter procedure Medical; RTN OFFICE VISIT - emmy lambert [facility]. Start: 29-Nov-2024 11:10-04:00 BRENDON Francisco Appointment Request [email or web address] Start: 11-02-2024 Patient encounter procedure Medical; EXTENDED RTN - IUD placement [facility]. Start: 02-Nov-2024 11:00-04:00 BRENDON Francisco Appointment Request [facility]. Start: 11-02-2024 Urine test visual color cmprsn meths Urine Test ([id number]) Start: 02-Nov-2024 10:43-04:00 Request [facility].; [facility]. Start: 09-13-2024 Patient encounter procedure Medical; PP PHYSICAL - pp physical ( baby LEH 11 [facility]. Start: 13-Sep-2024 09:30-04:00 BRENDON Francisco Appointment Request [facility]. Start: 07-29-2024 Patient encounter procedure Medical; RTN OFFICE VISIT - s/p c-sec [facility]. Start: 29-Jul-2024 11:20-05:00 MD Jadon Sanchez Appointment Request [facility]. Start: 07-28-2024 Patient encounter procedure [email or web address] Start: 07-21-2024 Patient encounter procedure Medical; OB - 1 WK OB [facility]. Start: 21-Jul-2024 09:00-05:00 BRENDON Francisco Appointment Request [facility]. Start: 07-14-2024 Ob care antepartum vag dlvr & OBSTETRICAL CARE ([id number]) Start: 14-Jul-2024 Intent [facility].; [facility]. Start: 07-14-2024 Patient encounter procedure Medical; OB - 2 WK OB [facility]. Start: 14-Jul-2024 10:00-05:00 BRENDON Francisco Appointment Request [facility]. Start: 07-14-2024 Urnls dip stick/tablet rgnt auto w/o microscopy Urinalysis-OB (in house*) ([id number]) Start: 14-Jul-2024 07:32-05:00 Request [facility].; [facility] Start: 06-30-2024 Ob care antepartum vag dlvr & OBSTETRICAL CARE ([id number]) Start: 30-Jun-2024 Intent [facility].; [facility]. Start: 06-30-2024 Patient encounter procedure Medical; OB - 3 WK OB & GBS [facility]. Start: 30-Jun-2024 11:20-05:00 BRENDON Francisco K Appointment Request [facility]. Start: 06-30-2024 Cul prsmptv pthgnc organism scrn w/colony estimj STREP GROUP B CULTURE ([id number]) Start: 30-Jun-2024 07:50-05:00 Request [email or web address]; [facility] Start: 06-30-2024 Urnls dip stick/tablet rgnt auto w/o microscopy Urinalysis-OB (in house*) ([id number]) Start: 30-Jun-2024 07:49-05:00 Request [facility].; [facility]. Start: 06-10-2024 Patient encounter procedure Medical; OB - 3 week ob [facility]. Start: 10-Jun-2024 15:50-05:00 BRENDON Francisco Crystal K Appointment Request [facility]. Start: 05-20-2024 Ob care antepartum vag dlvr & OBSTETRICAL CARE ([id number]) Start: 20-May-2024 Intent [facility].; [facility]. Start: 05-20-2024 Patient encounter procedure Medical; OB - 4 week ob [facility]. Start: 20-May-2024 09:00-05:00 BRENDON Francisco Crystal K Appointment Request [facility]. Start: 05-20-2024 Urnls dip stick/tablet rgnt auto w/o microscopy Urinalysis-OB (in house*) ([id number]) Start: 20-May-2024 07:35-05:00 Request [facility].; [facility] Start: 04-21-2024 Ob care antepartum vag dlvr & OBSTETRICAL CARE ([id number]) Start: 21-Apr-2024 Intent [facility].; [facility]. Start: 04-21-2024 Patient encounter procedure Medical; OB - 4 week ob- GTT [facility]. Start: 21-Apr-2024 08:20-05:00 BRENDON Francisco Appointment Request [facility]. Start: 04-21-2024 Blood count hemoglobin Hemoglobin ([id number]) Start: 21-Apr-2024 07:06-05:00 Request [facility].; [facility] Start: 04-21-2024 Glucose post glucose dose OB 1 Hr Glucose Tolerance Test, 50g load ([id number]) Start: 21-Apr-2024 07:06-05:00 Request [email or web address]; [facility]. Start: 04-21-2024 Urnls dip stick/tablet rgnt auto w/o microscopy Urinalysis-OB (in house*) ([id number]) Start: 21-Apr-2024 07:06-05:00 Request [email or web address]; [facility]. Start: 04-20-2024 Patient encounter procedure Medical; OB - 4 week ob- GTT [facility]. Start: 20-Apr-2024 14:10-05:00 BRENDON Francisco Appointment Request [facility]. Start: 03-22-2024 Us preg uterus after 1st trimest 1/ gestation OB US AFTER 14 WKS, Single Fetus ([id number]) Start: 22-Mar-2024 Intent [email or web address]; [facility]. Start: 03-22-2024 Patient encounter procedure Medical; US OB ULTRASOUND - 5 week ob- anatomy scan [facility]. Start: 22-Mar-2024 09:20-04:00 MD Jadon Sanchez Appointment Request [email or web address] Start: 02-17-2024 Ob care antepartum vag dlvr & OBSTETRICAL CARE ([id number]) Start: 17-Feb-2024 Intent [facility].; [facility]. Start: 02-17-2024 Patient encounter procedure Medical; OB - 4 week ob [facility]. Start: 17-Feb-2024 10:20-04:00 UpBRENDON matthews Crystal K Appointment Request [facility]. Start: 02-17-2024 Urnls dip stick/tablet rgnt auto w/o microscopy Urinalysis-OB (in house*) ([id number]) Start: 17-Feb-2024 08:44-04:00 Request [facility].; [facility]. Start: 01-20-2024 Patient encounter procedure Medical; OB - 3 WEEK OB- DERIAN GROWTH [facility]. Start: 20-Jan-2024 08:40-04:00 UpBRENDON matthews Crystal K Appointment Request [facility]. Start: 01-19-2024 Patient encounter procedure Medical; OB - 3 WEEK OB- DERIAN GROWTH [facility]. Start: 19-Jan-2024 10:40-04:00 UpBRENDON matthews Crystal K Appointment Request [facility]. Start: 12-29-2023 Us uterus 14 wk transabdl 05/26 gestat OB us < 14 wks, single fetus ([id number]) Start: 29-Dec-2023 Intent [facility].; [employer] Start: 12-29-2023 Antibody varicella-zoster Varicella IgG (Immunity Screen) ([id number]) Start: 29-Dec-2023 09:02-04:00 Request [facility].; [employer] Start: 12-29-2023 Assay of thyroid stimulating hormone tsh TSH W/ REFL FREE T4 ([id number]) Start: 29-Dec-2023 07:53-04:00 Request [facility].; [employer] Start: 12-29-2023 Obstetric panel OBSTETRIC PANEL ([id number]) Start: 29-Dec-2023 07:53-04:00 Request [facility].; [employer] Start: 12-29-2023 Urnls dip stick/tablet rgnt auto w/o microscopy Urinalysis, Automated w/o micro (in house)* ([id number]) Start: 29-Dec-2023 07:53-04:00 Request [facility].; [employer] Start: 07-22-2023 [facility] Start: 07-19-2021 Patient encounter procedure [facility] Medicine [place] Bilirubin measuremen t, urine [facility] Hemoglobin [Presence ] in Urine [facility] Measurement of keton es in urine using dipstick [facility] Microscopic urinalysis [facility] Patient Education Abdominal Pain [facility] Work Phone: Patient referral [facility] Work Phone: pH of Urine [facility] Radionuclide gastric emptying study [facility] Specific gravity of Urine [facility] Urinalysis, blood, qualitative [facility] Urine dipstick for glucose [facility] Urine dipstick for leukocyte esterase [facility] Urine dipstick for nitrite [facility] Urine dipstick for protein [facility] Urine examination [facility] Urine microscopy: epithelial cells [facility] Urine Microscopy: wh ite cells [facility] Urobilinogen [Presen ce] in Urine [facility] Immunizations Immunization Date Immunization Notes Care Provider Mary bennett 07-01-2002 diphtheria, tetanus toxoids and acellular pertussis vaccine [employer] Work Phone: [facility] 07-01-2002 poliovirus vaccine, inactivated [employer] Work Phone: [facility] 03-30-2002 diphtheria, tetanus toxoids and acellular pertussis vaccine [employer] Work Phone: [facility] [employer] [facility] 03-30-2002 haemophilus influenz ae type b vaccine, PRP-T conjugate [employer] Work Phone: [facility] 03-30-2002 hepatitis B vaccine, pediatric or pediatric/adolescent dosage [employer] Work Phone: [facility]; [facility] 01-05-2002 diphtheria, tetanus toxoids and acellular pertussis vaccine Crystal Uptain CNM Work Phone: [facility].; [facility] 01-05-2002 haemophilus influenz ae type b vaccine, PRP-T conjugate Crystal Uptain CNM Work Phone: [facility].; [facility] 01-05-2002 hepatitis B vaccine, pediatric or pediatric/adolescent dosage Crystal Uptain CNM Work Phone: [facility].; [facility] 01-05-2002 measles, mumps and rubella virus vaccine Crystal Uptain CNM Work Phone: [facility].; [facility] 06-02-2001 haemophilus influenz ae type b vaccine, PRP-T conjugate Crystal Uptain CNM Work Phone: [facility].; [facility] 06-02-2001 pneumococcal conjuga te vaccine, 13 valent Crystal Uptain CNM Work Phone: [facility].; [facility] 06-02-2001 poliovirus vaccine, inactivated Crystal Uptain CNM Work Phone: [facility].; [facility] 01-29-2001 diphtheria, tetanus toxoids and acellular pertussis vaccine Crystal Uptain CNM Work Phone: [facility].; [facility] 01-29-2001 pneumococcal conjuga te vaccine, 13 valent Crystal Uptain CNM Work Phone: [facility].; [facility] 01-29-2001 poliovirus vaccine, inactivated Crystal Uptain CNM Work Phone: [facility].; [facility] 2000 haemophilus influenz ae type b vaccine, PRP-T conjugate Crystal Uptain CNM Work Phone: [facility].; [facility] 2000 hepatitis B vaccine, pediatric or pediatric/adolescent dosage Crystal Uptain CNM Work Phone: [facility], [employer] [facility] Payers Date Payer Category Payer Self-pay 2024 Unknown [id number] 2000 Unknown [id number] 2000 Unknown [id number] 2000 Unknown [id number] 2000 Unknown [id number] 2000 Unknown [id number] 2000 Unknown [id number] Unknown [facility] [place] [employer] Unknown [id number] Unknown [id number] Unknown [id number] Unknown [id number] Unknown [id number] Unknown [id number] Unknown [id number] Unknown [id number] Social History Date Type Detail Facility [facility] Start: 07-22-2023 Tobacco smokin g consumption unknown [facility] Start: 2000 Sex Assigned At Female W [facility] Spouse Spouse [email or web address]; [email or web address] Tobacco Use: Tobacco Use: ; N ever smoker. [email or web address] Start: 12-29-2023 End: 07-14-2024 [email or web address] Work Phone: Start: 09-24-2024 End: 10-11-2024 Never smoked tobacco [facility] Evaluation note 09-24-2024 Note Date & Type Note Facility 09-24-2024 Evaluation note Diagnosis Onset Date Resolution Diarrhea acute September 24, 2024 8:51am [place] [facility] Work Phone: Evaluation note 09-24-2024 Note Date & Type Note Facility 09-24-2024 Evaluation note Diagnosis Onset Date Resolution Diarrhea acute September 24, 2024 8:51am Diarrhea acute October 11, 2024 10:35am Diarrhea acute December 17 8:16am [place] [facility] Work Phone: Discharge summary 07-22-2023 Note Date & Type Note Facility 07-22-2023 Discharge summary Note Date/Time July 22, 2023 6:15pm [facility] Medical Records Department [address] [place] [address] Emergency Department Summary 07/22/23 MR#: [id number] Acct: [id number] Name: SHWETA ARMENDARIZ Rep #:[id number] : 2000 22 From: Nic Chan MD PCP: Isaura Conn NP-Vivien Status:REG E R Location: ED HPI HPI - GI History of Present Illness Chief Complaint: Abd Pain Informant: patient Abdominal Pain/Flank Pain Onset: Weeks Context: Gradual Onset Timing: Intermittent Location: Diffuse Current Severity: Mild Maximum Severity: Mild Worsened by: Nothing Relieved by: Nothing Nausea/Vomiting/Emesis GI Symptom: Positive for Nausea Onset: Weeks Severity: Mild Diarrhea/Melena/Hematochezia GI Symptom: Positive for Diarrhea Onset: Weeks Stool Quality: Positive for Loose Severity: Mild Associated Symptoms Associated Symptoms: Negative for Dysuria, Frequency, Hematuria or Urgency Narrative Narrative: year-old female about 7 weeks ago in May she had laparoscopic cholecystectomy done by Dr. Ray in [place], [place]. She has had postoperatively the next several days she had an EGD also. Since since her laparoscopic cholecystectomy she has had diarrhea and just generalized intermittent abdominal pain. She also has a history of appendectomy. Denies any other medical problems. Prior similar symptoms: Yes Recent Illness/Hospitalization: Yes PFSH PFSH Allergy/AdvReac Type Severity Reaction Status Date / Time No Known Allergies Allergy Verified 07/22/23 17:30 Surgical History Hx of appendectomy Hx of cholecystectomy Social History Smoking Status: Never smoker ROS ROS ED ROS Narrative Abdominal pain. Diarrhea. Nausea. Review of Systems ROS Unobtainable: Denies due to encephalopathy Constitutional Constitutional ED: Denies chills or fever(s) ENT ENT ED: Denies ear pain Cardiovascular Cardiovascular: Denies chest pain Respiratory/Chest Respiratory/Chest: Denies cough or dyspnea Gastrointestinal Gastrointestinal: Reports abdominal pain, diarrhea and nausea; Denies constipation, melena or vomiting Genitourinary Genitourinary ED: Denies dysuria or hematuria Musculoskeletal Musculoskeletal: Denies arthralgias Integumentary Denies abscess Neurologic Neurologic: Denies headache(s) Psychiatric Psychiatric: Denies anxiety or depression Endocrine Endocrinology: Denies polydipsia Hematologic/Lymphatic Hematologic/Lymphatic: Denies easy bleeding or easy bruising Allergic/Immunologic Allergic/Immunologic ED: Denies mouth swelling, tongue swelling or urticaria EXAM Physical Exam Narrative Exam Narrative: Well-appearing 22-year-old female. Vital signs stable afebrile. HEENT exam unremarkable. Moist extremities. Neck nontender no lymphadenopathy. Lungs clear to auscultation bilaterally. Heart regular rate and rhythm no murmur. Abdomen soft nondistended normal bowel sounds really no peritoneal signs very minimal tenderness at all. Is primarily upper quadrants. No hernia or mass. Well-healed laparoscopic incision sites. Dry and clean. No erythema. No discharge. No distention or obstruction. Patient moving all 4 extremities. Nontender no edema. Back nontender. Neurologically she is awake and alert. Const Vital Signs: 07/22/23 17:28 Temperature 97.4 F L Temperature Source Temporal Pulse Rate 81 Respiratory Rate 16 Blood Pressure 136/81 H Blood Pressure Mean 99 Pulse Ox 98 Oxygen Delivery Method Room Air Positive well nourished and well developed; Negative for cachectic, contracturesor unkempt General Appearance ED: well developed and NAD; Negative for unkempt, cachectic, contractures or pallor Nutritional Appearance: Negative for cachectic HEENT Reports moist mucous membranes normocephalic and atraumatic; Negative for trauma or tenderness Eyes PERRL and EOMs intact bilaterally General Eye ED: Negative for pale conjunctiva or scleral icterus Neck no lymphadenopathy, supple and no JVD General: Negative for tenderness Lymph Lymphatic: Negative for other Resp normal respiratory effort and clear to auscultation bilaterally Effort and Inspection: Negative for respiratory distress Auscultation: Negative for rales, rhonchi or wheezes Cardio regular rate, regular rhythm, S1 normal heart sound, S2 normal heart sound and no murmurs Rate: Negative for bradycardia or tachycardic Rhythm: Negative for abnormal rhythm GI non-distended and no masses; Negative for non-tender GI Narrative: Very mild upper abdominal tenderness. Inspection: Negative for abdominal distention Auscultation: normoactive bowel sounds Palpation: soft, tender and rebound tenderness present; Negative for guarding Back/Spine Negative for no CVA tenderness General Back: Negative for CVA tenderness Cervical Spine: Negative for cervical spine tenderness Thoracic Spine / Upper Back: Negative for thoracic spinal tenderness Lumbar Spine / Lower Back: Negative for lumbar spinal tenderness Coccyx: Negative for other Extremity full ROM General Extremety ED: Negative for edema or tenderness General Extremity: Negative for edema Neuro CN's II-XII intact bilaterally and moves all extremities Sensorium / Orientation: alert, oriented to person, oriented to place and oriented to time Motor Exam: strength 5/5 throughout Psych mental status grossly normal and thought process normal Appearance: Negative for unkempt Attitude: No agitated Mood & Affect: Negative for depressed, anxious or tearful Skin no wounds General Skin Exam: Negative for jaundice or pallor Lesions: no lesions Rashes: no rashes Trauma: Negative for abrasion Nails: Negative for discolored MDM MDM MDM Narrative Medical decision making narrative: 22-year-old female abdominal pain status post laparoscopic cholecystectomy about7 weeks ago. Very benign exam. CAT scan labs pending. She does need anything for pain at this time or nausea. History & Record Review Discussion w/independent historian: Patient Additional record(s) reviewed:: Prior labs Lab Data Attestation: I reviewed the patient's lab results. Lab results narrative: CBC normal. White count of 7. H&H of 15 and 44. Platelets 328. Electrolytes show gap of 4. Normal BUN and creatinine. Glucose 82. Liver enzymes normal. Lipase normal at 34. Serum test negative. CAT scan of the abdomen showed no acute abnormalities other than an ovarian cyst. Labs: Laboratory Results - last 24 hr 07/22/23 17:43 WBC 7.0 RBC 4.98 Hgb 15.0 Hct 44.4 MCV 89.2 MCH 30.1 MCHC 33.8 RDW Std Deviation 41.2 RDW Coeff of Ck 12.5 Plt Count 328 MPV 10.4 Immature Gran % (Auto) 0.400 Neut % (Auto) 50.1 Lymph % (Auto) 31.3 Deuel % (Auto) 14.8 H Eos % (Auto) 3.0 Baso % (Auto) 0.4 Absolute Neuts (auto) 3.5 Absolute Lymphs (auto) 2.18 Nucleated RBC % 0 Sodium 140 Potassium 3.7 Chloride 108 H Carbon Dioxide 28.0 Anion Gap 4 L BUN 12 Creatinine 0.84 Estim Creat Clear Calc 122.01 Est GFR (MDRD) Af Amer 109 Est GFR (MDRD) Non-Af 90 BUN/Creatinine Ratio 14.3 Glucose 82 Calcium 10.0 Total Bilirubin 0.30 AST 22 ALT 29 Alkaline Phosphatase 100 Total Protein 8.5 H Albumin 4.0 Globulin 4.5 H Albumin/Globulin Ratio 0.9 Lipase 34 Serum , Qual NEGATIVE Radiography Diagnostic Testing: Clinical Impression(s) from Imaging Studies Abdomen/Pelvis CT 07/22/23 18:10 IMPRESSION: Postsurgical changes status post appendectomy and cholecystectomy Small bilateral ovarian cysts and trace of fluid in the cul-de-sac likely due to recent ovulation No evidence for small bowel obstruction or other acute abnormalities Electronically Signed: Calvin Mendoza MD at 19:12 EST Reading Location ID and State: [facility] / [place] Tel , Service support , Discharge Plan Triage Chief Complaint: Abd Pain ED Provider: Nic Chan Dx/Rx/DC Orders Clinical Impression: Ovarian cyst, History of cholecystectomy, History of appendectomy, Abdominal pain Instructions: Abdominal Pain Primary Care Provider: Isaura Conn NP Referrals: Isaura Conn NP, ACCESS RN-C [Primary Care Provider] - 1 Week if not improving Activity Restrictions/Additional Instructions: Your labs were normal. Your CAT scan just showed 2 very small ovarian cyst. Tylenol and Motrin for pain. Follow-up with your doctor if not improving or your general surgeon. Disposition Disposition: Home, Self Care What to do if you have Problems For any increased pain, shortness of breath, bleeding, nausea or vomiting, chestpain, or any unexpected problems, contact your Primary Care Provider. Call [facility] ([phone]) or report to the closest Emergency Room. Call 911 if necessary. 07/22/231944 <Electronically signed by Nic Chan MD> Cosigner Signature (if applicable): CC: ACCESS RN-Vivien Conn ~ Signed ADDENDUM by Dr. Nic Chan MD on 07/22/23 at 1944 Repeat exam patient is doing well at 7:45 PM. Abdomen is benign. We discussed her test results. Outpatient follow-up. She will be discharged home. 07/22/231944<Electronically signed by Nic Chan MD> Cosigner Signature (if applicable): cc: ACCESS RNHenrique Conn ~* Signed [facility] Work Phone: Evaluation note Note Date & Type Note Facility Evaluation note No assessment information availa ble [facility] Work Phone: Hospital Discharge instructions Note Date & Type Note Facility Hospital Discharge instructions Additional Instructions Your labs were normal. Your CAT scan just showed 2 very small ovarian cyst. Tylenol and Motrin for pain. Follow-up with your doctor if not improving or your general surgeon. [facility] Work Phone: Reason for referral (narrative) Note Date & Type Note Facility Reason for referral (narrative) No reason for referral information available [facility] Work Phone: Summary Purpose Family History No Family History Records Found Family history unknown - Adopted Status:Active Father Status:Active Comments:In good health. Hemophilia Status:Active Comments:Negativ e Family History Of. Mother Status:Active Comments:In good health. Family history unknown - Adopted Status:Active Father Status:Active Comments:In good health. Hemophilia Status:Active Comments:Negativ e Family History Of. Mother Status:Active Comments:In good health. Family history unknown - Adopted Status:Active Father Status:Active Comments:In good health. Hemophilia Status:Active Comments:Negativ e Family History Of. Mother Status:Active Comments:In good health. Family history unknown - Adopted Status:Active Father Status:Active Comments:In good health. Hemophilia Status:Active Comments:Negativ e Family History Of. Mother Status:Active Comments:In good health. Family history unknown - Adopted Status:Active Father Status:Active Comments:In good health. Hemophilia Status:Active Comments:Negativ e Family History Of. Mother Status:Active Comments:In good health. Family history unknown - Adopted Status:Active Father Status:Active Comments:In good health. Hemophilia Status:Active Comments:Negativ e Family History Of. Mother Status:Active Comments:In good health. Family history unknown - Adopted Status:Active Father Status:Active Comments:In good health. Hemophilia Status:Active Comments:Negativ e Family History Of. Mother Status:Active Comments:In good health. Family history unknown - Adopted Status:Active Father Status:Active Comments:In good health. Hemophilia Status:Active Comments:Negativ e Family History Of. Mother Status:Active Comments:In good health. Family history unknown - Adopted Status:Active Father Status:Active Comments:In good health. Hemophilia Status:Active Comments:Negativ e Family History Of. Mother Status:Active Comments:In good health. Family history unknown - Adopted Status:Active Father Status:Active Comments:In good health. Hemophilia Status:Active Comments:Negativ e Family History Of. Mother Status:Active Comments:In good health. Family history unknown - Adopted Status:Active Father Status:Active Comments:In good health. Hemophilia Status:Active Comments:Negativ e Family History Of. Mother Status:Active Comments:In good health. Family history unknown - Adopted Status:Active Father Status:Active Comments:In good health. Hemophilia Status:Active Comments:Negativ e Family History Of. Mother Status:Active Comments:In good health. Family history unknown - Adopted Status:Active Father Status:Active Comments:In good health. Hemophilia Status:Active Comments:Negativ e Family History Of. Mother Status:Active Comments:In good health. Family history unknown - Adopted Status:Active Father Status:Active Comments:In good health. Hemophilia Status:Active Comments:Negativ e Family History Of. Mother Status:Active Comments:In good health. Family history unknown - Adopted Status:Active Father Status:Active Comments:In good health. Hemophilia Status:Active Comments:Negativ e Family History Of. Mother Status:Active Comments:In good health. Family history unknown - Adopted Status:Active Father Status:Active Comments:In good health. Hemophilia Status:Active Comments:Negativ e Family History Of. Mother Status:Active Comments:In good health. Family history unknown - Adopted Status:Active Father Status:Active Comments:In good health. Hemophilia Status:Active Comments:Negativ e Family History Of. Mother Status:Active Comments:In good health. Family history unknown - Adopted Status:Active Father Status:Active Comments:In good health. Hemophilia Status:Active Comments:Negativ e Family History Of. Mother Status:Active Comments:In good health. Family history unknown - Adopted Status:Active Father Status:Active Comments:In good health. Hemophilia Status:Active Comments:Negativ e Family History Of. Mother Status:Active Comments:In good health. Family history unknown - Adopted Status:Active Father Status:Active Comments:In good health. Hemophilia Status:Active Comments:Negativ e Family History Of. Mother Status:Active Comments:In good health. Family history unknown - Adopted Status:Active Father Status:Active Comments:In good health. Hemophilia Status:Active Comments:Negativ e Family History Of. Mother Status:Active Comments:In good health. Family history unknown - Adopted Status:Active Father Status:Active Comments:In good health. Hemophilia Status:Active Comments:Negativ e Family History Of. Mother Status:Active Comments:In good health. Family history unknown - Adopted Status:Active Father Status:Active Comments:In good health. Hemophilia Status:Active Comments:Negativ e Family History Of. Mother Status:Active Comments:In good health. Family history unknown - Adopted Status:Active Father Status:Active Comments:In good health. Hemophilia Status:Active Comments:Negativ e Family History Of. Mother Status:Active Comments:In good health. Family history unknown - Adopted Status:Active Father Status:Active Comments:In good health. Hemophilia Status:Active Comments:Negativ e Family History Of. Mother Status:Active Comments:In good health. Family history unknown - Adopted Status:Active Father Status:Active Comments:In good health. Hemophilia Status:Active Comments:Negativ e Family History Of. Mother Status:Active Comments:In good health. Family history unknown - Adopted Status:Active Father Status:Active Comments:In good health. Hemophilia Status:Active Comments:Negativ e Family History Of. Mother Status:Active Comments:In good health. Family history unknown - Adopted Status:Active Father Status:Active Comments:In good health. Hemophilia Status:Active Comments:Negativ e Family History Of. Mother Status:Active Comments:In good health. Family history unknown - Adopted Status:Active Father Status:Active Comments:In good health. Hemophilia Status:Active Comments:Negativ e Family History Of. Mother Status:Active Comments:In good health. Family history unknown - Adopted Status:Active Father Status:Active Comments:In good health. Hemophilia Status:Active Comments:Negativ e Family History Of. Mother Status:Active Comments:In good health. Family history unknown - Adopted Status:Active Father Status:Active Comments:In good health. Hemophilia Status:Active Comments:Negativ e Family History Of. Mother Status:Active Comments:In good health. Family history unknown - Adopted Status:Active Father Status:Active Comments:In good health. Hemophilia Status:Active Comments:Negativ e Family History Of. Mother Status:Active Comments:In good health. Family history unknown - Adopted Status:Active Father Status:Active Comments:In good health. Hemophilia Status:Active Comments:Negativ e Family History Of. Mother Status:Active Comments:In good health. Family history unknown - Adopted Status:Active Father Status:Active Comments:In good health. Hemophilia Status:Active Comments:Negativ e Family History Of. Mother Status:Active Comments:In good health. Family history unknown - Adopted Status:Active Father Status:Active Comments:In good health. Hemophilia Status:Active Comments:Negativ e Family History Of. Mother Status:Active Comments:In good health. Family history unknown - Adopted Status:Active Father Status:Active Comments:In good health. Hemophilia Status:Active Comments:Negativ e Family History Of. Mother Status:Active Comments:In good health. Family history unknown - Adopted Status:Active Father Status:Active Comments:In good health. Hemophilia Status:Active Comments:Negativ e Family History Of. Mother Status:Active Comments:In good health. Family history unknown - Adopted Status:Active Father Status:Active Comments:In good health. Hemophilia Status:Active Comments:Negativ e Family History Of. Mother Status:Active Comments:In good health. Family history unknown - Adopted Status:Active Father Status:Active Comments:In good health. Hemophilia Status:Active Comments:Negativ e Family History Of. Mother Status:Active Comments:In good health. Family history unknown - Adopted Status:Active Father Status:Active Comments:In good health. Hemophilia Status:Active Comments:Negativ e Family History Of. Mother Status:Active Comments:In good health. Advance Directives No Advanced Directives Records Found Advance Directive Response Recorded Date/ Time Living Will No July 22 024 5:54pm Power of Batter Mixer Helper No July 22, 2023 5:54pm Chief Complaint and Reason for Visit Chief Complaint ABD PAIN Chief Complaint Admit Date Diarrhea September 24, 2024 8:51am INT LABS September 24, 2024 9:37am INT ORDER September 25, 2024 9:02am 2 W FU October 11, 2024 10:35 am Reason for Visit Admit Date Diarrhea September 24, 2024 8:51am Chief Complaint Admit Date Diarrhea September 24, 2024 8:51am INT LABS September 24, 2024 9:37am INT ORDER September 25, 2024 9:02am 2 W FU October 11, 2024 10:35 am Nausea/Vomiting December 17, 2024 8:16 am Reason for Visit Admit Date Diarrhea September 24, 2024 8:51am Diarrhea October 11, 2024 10:35 am Diarrhea December 17, 2024 8:16 am Additional Source Comments INFORMATION SOURCE (unrecogn ized section and content) DATE CREATED AUTHOR 04/15/2021 [facility] DATE CREATED AUTHOR AUTHOR'S ORGANIZ ATION 05/16/2021 [facility] DATE CREATED AUTHOR AUTHOR'S ORGANIZ ATION 05/20/2021 [facility] DATE CREATED AUTHOR AUTHOR'S ORGANIZ ATION 07/14/2021 [facility] DATE CREATED AUTHOR AUTHOR'S ORGANIZ ATION 05/04/2023 [facility] DATE CREATED AUTHOR AUTHOR'S ORGANIZ ATION 07/02/2024 [facility] DATE CREATED AUTHOR AUTHOR'S ORGANIZ ATION 07/04/2024 [facility] DATE CREATED AUTHOR AUTHOR'S ORGANIZ ATION 08/29/2024 [facility] DATE CREATED AUTHOR AUTHOR'S ORGANIZ ATION 01/01/2025 [facility] <item> Privacy Markings (unrecogniz ed section and content) Section Author: Clair Madden PROHIBITION ON REDISCLOSURE OF CONFIDENTIAL INFORMATION This notice accompanies a disclosure of information concerning a client made to you with the consent of such client. Care Teams (unrecognized sec tion and content) Team Status: Active Member Role Status Dates Isaura Conn NP, ACCESS RN-C Primary Care Provider Active Team Status: Inactive Member Role Status Dates Isaura Conn NP, ACCESS RN-C Primary Care Provider Active Dr. Nic Chan MD Emergency Provider Active Team Status: Inactive Member Role Status Dates Isaura Conn NP, ACCESS RN-C Primary Care Provider Active Start: September 24, 2024 End: September 24, 2024 Isaura Conn NP, ANGELO-C Referring Provider Active Start: September 24, 2024 End: September 24, 2024 TWILA Hale Attending Provider Active S tart: September 24, 2024 End: September 24, 2024 Team Status: Inactive Member Role Status Dates Isaura Conn NP, NP-C Primary Care Provider Active Start: September 24, 2024 End: September 24, 2024 TWILA Hale Attending Provider Active S tart: September 24, 2024 End: September 24, 2024 TWILA Hale Referring Provider Active S tart: September 24, 2024 End: September 24, 2024 Team Status: Inactive Member Role Status Dates Isaura Conn NP, ACCESS RN-C Primary Care Provider Active Start: September 25, 2024 End: September 25, 2024 Patience Mccrary ACCESS RN-C Attending Provider Active S tart: September 25, 2024 End: September 25, 2024 Patience Mccrary ACCESS RN-C Referring Provider Active S tart: September 25, 2024 End: September 25, 2024 Team Status: Inactive Member Role Status Dates Isaura Conn ACCESS RN, ACCESS RN-C Primary Care Provider Active Start: October 11, 2024 End: October 11, 2024 Isaura Conn ACCESS RN, ACCESS RN-C Referring Provider Active Start: October 11, 2024 End: October 11, 2024 Patience Mccrary ACCESS RN-C Attending Provider Active S tart: October 11, 2024 End: October 11, 2024 Team Status: Active Member Role/Relationship Status Dates Isaura Conn ACCESS RN, ACCESS RN-C Primary Care Provider Active Team Status: Inactive Member Role/Relationship Status Dates Isaura Conn ACCESS RN, ACCESS RN-C Primary Care Provider Active Start: September 24, 2024 End: September 24, 2024 Isaura Conn NP, ACCESS RN-C Referring Provider Active Start: September 24, 2024 End: September 24, 2024 Patience Mccrary ACCESS RN-C Attending Provider Active S tart: September 24, 2024 End: September 24, 2024 Team Status: Inactive Member Role/Relationship Status Dates Isaura Conn NP, ACCESS RN-C Primary Care Provider Active Start: September 24, 2024 End: September 24, 2024 Patience Mccrary , ACCESS RN-C Attending Provider Active S tart: September 24, 2024 End: September 24, 2024 Patience Mccrary ACCESS RN-C Referring Provider Active S tart: September 24, 2024 End: September 24, 2024 Team Status: Inactive Member Role/Relationship Status Dates Isaura Conn NP, ACCESS RN-C Primary Care Provider Active Start: September 25, 2024 End: September 25, 2024 Patience Mccrary ACCESS RN-C Attending Provider Active S tart: September 25, 2024 End: September 25, 2024 Patience Mccrary ACCESS RN-C Referring Provider Active S tart: September 25, 2024 End: September 25, 2024 Team Status: Inactive Member Role/Relationship Status Dates Isaura Conn NP, ACCESS RN-C Primary Care Provider Active Start: October 11, 2024 End: October 11, 2024 TWILA Nagel NP Referring Provider Active Start: October 11, 2024 End: October 11, 2024 TWILA Hale Attending Provider Active S tart: October 11, 2024 End: October 11, 2024 Team Status: Inactive Member Role/Relationship Status Dates TWILA Nagel NP Primary Care Provider Active Start: December 17, 2024 End: December 17, 2024 TWILA Nagel NP Referring Provider Active Start: December 17, 2024 End: December 17, 2024 TWILA Hale Attending Provider Active S tart: December 17, 2024 End: December 17, 2024 Goals (unrecognized section and content) Goals may be documented in a n alternate sectionGoals may be documented in an alternate sectionGoals may be documented in an alternate section FOR RECORDS PERTAINING TO PATIENTS WHO ARE OR HAVE BEEN ENROLLED IN A CHEMICAL DEPENDENCY/SUBSTANCEABUSE PROGRAM, SOME INFORMATION MAY BE OMITTED. This clinical summary was aggregated from multiple sources. Caution should be exercised in using it in the provision of clinical care. This summary normalizes information from multiple sources, and as a consequence, information in this document may materially change the coding, format and clinical context of patient data. In addition, data may be omitted in some cases. CLINICAL DECISIONS SHOULD BE BASED ON THE PRIMARY CLINICAL RECORDS. [employer] provides no warranty or guarantee of the accuracy or completeness of information in this document.
== END | disposition home or self-care (01) ==
LOC: NM 10:03
PROVIDERS: PCP Nurse Practitioner Family
DX: R19.7 Diarrhea, unspecified (principal)
CPT/HCPCS: 78264; A9541

== ENCOUNTER 2025-02-08 11:22 | Day surgery (SDC) | payer MEDICAID, SELFPAY ==
[2025-02-08] VITALS (8 sets, daily range): BP systolic 109–118; BP diastolic 57–71; PULSE 73–83; RESP 16–18; TEMP 36.3–36.7; O2SAT 94–99; BMI 40.3
[2025-02-08 11:55] LABS: Internal QC Validated? YES +Cl - CLEAR BKGD; Pregnancy, Urine Negative Negative; Record Kit Lot#,Urine Preg 964736
[2025-02-08] MEDS: Lactated Ringers 1,000 ML 15 ML IV (12:05)
--- NOTE | 2025-02-08 12:30 | EGD_PTH ---
PATIENT: SHWETA ARMENDARIZ LOC: EN U#:[id number] AGE/SX: 24/F ROOM: RE02/08/[address]: Dr. Chandan Moses DO : 2000 BED: DIS: 02/08/2025 SPEC #: [id number] RECD: 02/08/25 13:40 STATUS: NGHIA REMakenzie #: [id number] KIAN: 02/08/25 12:[address]: Chandan Moses DEPT: SURGICAL PATHOLOGY RECD BY: Jeronimo Gillespie ENTERED: 02/08/25 16:11 SP TYPE: EGD BIOPSY OT DR: Citlaly Collazo, STATIC BALANCER-C Tissues: A - Duodenum, NOS B - Gastric mucous membrane C - Esophagus, NOS Procedures: Immunohistochemical Stains Surgery Specimen Level IV HEADER OPERATION: EGD with biopsy PRE-OP DIAGNOSIS: Nausea, diarrhea TISSUE SUBMITTED: A- Duodenum biopsy, B- Gastric body biopsy, C- Random esophagus biopsy MICROSCOPIC DIAGNOSIS A. Duodenum, biopsy: - Hayes gland hyperplasia. - Negative for increased intraepithelial lymphocytes. B. Gastric body, biopsy: - Oxyntic mucosa with chronic inflammation. - IHC negative for H. pylori organisms. C. Esophagus, random, biopsy: - Squamous mucosa with reactive changes. - 30 eosinophils per high power field. MICROSCOPIC DESCRIPTION Slides are reviewed. Slides are reviewed. All matched controls reacted appropriately. These tests were developed and their performance characteristics determined by [facility]. They may not have been cleared or approved by the U.S. Food and Drug Administration. The FDA has determined that such clearance or approval is not necessary. The above immunohistochemical markers and/or special stains have been reviewed by the Pathologist. GROSS DESCRIPTION A. Received in fixative is one container labeled with the patient's name and designated Duodenum biopsy. The specimen consists of multiple irregular fragments of light bowser soft tissue that in aggregate measure 1 x 0.4 x 0.1 cm. The specimen is totally submitted in one cassette. B. Received in fixative is one container labeled with the patient's name and designated Gastric body biopsy. The specimen consists of two irregular fragments of light bowser soft tissue that measure 0.4 and 0.7 cm. The specimen is totally submitted in one cassette. C. Received in fixative is one container labeled with the patient's name and designated Random esophagus biopsy. The specimen consists of multiple irregular fragments of light bowser soft tissue that in aggregate measure 0.8 x 0.6 x 0.1 cm. The specimen is totally submitted in one cassette. ID 02/08/2025 CPT:[id number]
--- NOTE | 2025-02-08 12:33 | PRE.ANES_ITS ---
ASA Classification* ASA Classification ASA Classification: 3 Assessment & Plan Anesthesia* Anesthesia Assessment Anesthesia Assessment: Discussed sedation and/or anesthesia options, risks, benefits, and alternatives with patient/parents/legal guardian/POA. Questions invited. The patient/parents/legal guardian/POA seems to understand and agrees to proceed with anesthesia plan. Reviewed the physical assessment, medical history, allergy history and patient home medications list prior to surgery/procedure/anesthetic and documented any changes. Performed airway and anesthesia risk assessments. Anesthesia Type Anesthesia Type: MAC History Source History Obtained from:: Patient and Chart Anesthesia Focused Assessment* Temperature: 98.1 F Pulse Rate: 74 Blood Pressure: 112/71 Respiratory Rate: 16 Pulse Ox: 99 Oxygen Delivery Method: Room Air Airway Assessment Mouth opens: >3 cm Mallampati Score: III Teeth Condition: Intact Neck Range of motion (ROM): Full ROM Labs Anesthesia Preop lab: CBC WBC 7.2 K/mm3 (4.4-11.0) 09/24/24 09:45 09/24/24 RBC 4.91 M/mm3 (4.2-5.4) 09/24/24 09:45 09/24/24 Hgb 14.1 g/dL (12.0-15.0) 09/24/24 09:45 09/24/24 Hct 42.4 % (37-47) 09/24/24 09:45 09/24/24 Plt Count 353 K/mm3 (150-450) 09/24/24 09:45 09/24/24 CHEMISTRY Potassium 4.0 mmol/L (3.3-5.1) 09/24/24 09:45 09/24/24 Sodium 140 mmol/L (133-145) 09/24/24 09:45 09/24/24 BUN 11 mg/dL (4-19) 09/24/24 09:45 09/24/24 Creatinine 0.74 mg/dL (0.70-1.20) 09/24/24 09:45 09/24/24 Glucose 96 mg/dL (70-99) 09/24/24 09:45 09/24/24 TSH 0.741 uIU/mL (0.300-4.200) 09/24/24 09:45 0507/20 COAG Urine Test Negative Negative 02/08/25 11:48 02/08/25 Pre-Assessment Diagnosis/Proposed Procedure Planned Operative Procedure(s): EGD Anesthesia History Anesthesia History - engraver copperplate: Anesthesia History - engraver copperplate Hx Hospitalization No 02/03/25 10:28 Any Problems With Anesthesia No 02/03/25 10:28 Cholinesterase deficiency No 02/03/25 10:28 You/Your Family Experience No 02/03/25 10:28 fever (hyperthermia) with Relationship Recent Exposure to Contagious No 02/08/25 11:58 Disease Does patient have nerve No 02/03/25 10:28 stimulator Patient instructed to have device shut off --Does patient have Pacemaker No 02/08/25 11:58 or ICD? When Was Last Pacemaker Check QUESTION #4 FULL TEXT: You/Your Family Experience fever (hyperthermia) with Anesthesia Last Oral Intake Last Oral intake: Last Oral Intake NPO since 07:00 02/08/25 11:58 Meds taken in AM with sips of water? Meds patient instructed to take am of surgery PONV PONV - engraver copperplate: PONV - engraver copperplate Female Yes 02/03/25 10:28 HX of Motion Sickness No 02/03/25 10:28 HX of N/V After Surgery No 02/03/25 10:28 Non-Smoker Yes 02/03/25 10:28 Duration of Surgery greater No 02/03/25 10:28 than 60 minutes Number of Risk Factors 2 02/03/25 10:28 PONV Score Moderate Risk 02/03/25 10:28 Height & Weight Height & Weight: Anesthesia: Height & Weight Height 5 ft 5 in 02/08/25 11:58 Weight: 110 kg 02/08/25 11:58 Body Mass Index (BMI) 40.3 02/08/25 11:58 Respiratory Assessment Respiratory Assessment - engraver copperplate: Respiratory Tract Infection Hx - engraver copperplate Hx Respiratory Tract Infection No 02/03/25 10:28 STOP Sleep Apnea STOP Sleep Apnea - engraver copperplate: STOP Sleep Apnea - engraver copperplate Hx Hypertension No 02/03/25 10:28 Hx Sleep Apnea No 02/03/25 10:28 CPAP BIPAP Do you snore loudly (louder No 02/03/25 10:28 than talking or can be heard Do you often feel tired/ No 02/03/25 10:28 fatigued/ sleepy during daytime? Has anyone observed you stop No 02/03/25 10:28 breathing during sleep? STOP Results Negative 02/03/25 10:28 QUESTION #5 FULL TEXT : Do you snore loudly (louder than talking or can be heard through closed doors)? 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 Specify any problems Hx of Preganancy in last 3 N/A 02/03/25 10:28 Months Nurse Filling Out Transfusion NBUCHER 02/03/25 10:28 & Questions: Date: 02/03/25 02/03/25 10:28 Time: 10:28 02/03/25 10:28 Patient unable to answer at this time (ie. confused, unrespo /Reproduction History /Reproductive History - engraver copperplate: /Reproductive Hx- engraver copperplate Hx Now No 02/03/25 10:28 Gestational Age (in weeks): EDC: Hx Hx Para Hx Section SAB No 02/03/25 10:28 Active Medications Active Medications: Current Medications Generic Name Dose Route Start Last Admin Trade Name Freq PRN Reason Stop Dose Admin Lactated Ringer's 1,000 mls @ 15 mls/hr 02/08/25 11:45 02/08/25 12:05 IV 15 mls/hr .Q48H MO Administration PFSH Medical History Wears glasses Non-smoker Dyspepsia Right leg pain Generalized postprandial abdominal pain Diarrhea Home Medications ?Medication ?Instructions ?Recorded ?Last Taken ?Type NK 01/07/25 Unknown History Allergy/AdvReac Type Severity Reaction Status Date / Time No Known Allergies Allergy Verified 02/08/25 11:58 Surgical History History of section Hx of cholecystectomy Hx of appendectomy Social History Smoking Status: Never smoker alcohol intake: never substance use type: does not use Review of Systems (Anesthesia) ROS Narrative System reviewed and no additional complaints, except as documented.
--- NOTE | 2025-02-08 12:44 | PCM.HP.STD ---
HPI - General General Date of Admission: 02/08/25 Date of Service: 02/08/25 Chief Complaint: Abdominal pain and diarrhea HPI Narrative SHWETA ARMENDARIZ, is a 24 F who presents with abdominal pain and diarrhea. 10.11.24 OV Established 5..25 with c/o diarrhea w/urgency after eating associated with nausea. Serum and fecal testing ruled out EPI, IBD. She denies abdominal pain at any point. She has not really tried to increase dietary fiber or peppermint or quique for her nausea as recommended. She denies noticing any specific food triggers. She denies notable weight loss, reports appropriate healing from and baby boy is growing well and being bottle/formula fed. 12.17.24 OV Reports stopping colestipol soon after starting. She reports immediate nausea after taking, but sated it did help lessen my diarrhea. She denies trying quique or peppermint as previously advised to help with her nausea. She denies increasing dietary fiber. She has bowel urgency following every meal, regardless of the size of the meal. She does report eliminating meat, mostly red, from her diet. She reports less gas with this diet change. Reviewed low FODMAP food list and discussed use of rifaximin. She prefers to try the elimination meal planning. She states, I'm camping this weekend and cannot guarantee that I'll adhere to all of these recommendations. Reminded her that she is in control of the severity of her symptoms. 8 GET 1hr-69%(37-90%) 815. OV Denies ever trying peppermint or quique for nausea, continues to have urgent diarrhea after meals, has returned to eating red meats, and only somewhat followed the low FODMAP food lists when she could. We discussed the results of her GET. Reviewed having small frequent meals of moderate fiber and low fats to help with GI symptoms. Discussed rifaximin treatment again, she prefers to just find out what is wrong. [facility] Medical History Wears glasses Non-smoker Dyspepsia Right leg pain Generalized postprandial abdominal pain Diarrhea Home Medications ?Medication ?Instructions ?Recorded ?Last Taken ?Type NK 01/07/25 Unknown History Allergy/AdvReac Type Severity Reaction Status Date / Time No Known Allergies Allergy Verified 02/08/25 11:58 Surgical History History of section Hx of cholecystectomy Hx of appendectomy Social History Smoking Status: Never smoker alcohol intake: never substance use type: does not use ROS Constitutional Constitutional: Denies fatigue, fever(s), poor appetite, weight gain or weight loss Gastrointestinal Gastrointestinal: Denies belching, bloating, change in bowel habits, change in stool character, chewing difficulty, coffee ground emesis, constipation, cramping, diarrhea, dyspepsia, dysphagia, early satiety, excessive flatus, fecal incontinence, heartburn, hematemesis, hematochezia, hemorrhoids, loose stools, melena, nausea, odynophagia, rectal bleeding, tenesmus, vomiting or weight changes Vital Signs Vital Signs Vital Signs: 02/08/25 11:58 02/08/25 11:58 02/08/25 12:36 Temperature 98.1 F 98.1 F Temperature Source Temporal Pulse Rate 74 74 Respiratory Rate 16 16 Respiratory Pattern Normal Blood Pressure 112/71 112/71 Blood Pressure Mean 84 Blood Pressure Source Monitor Blood Pressure Position Semi-Fowlers Blood Pressure Location Left Arm Pulse Ox 99 99 Oxygen Delivery Method Room Air Room Air Weight Weight: 242 lb 8.136 oz Body Mass Index (BMI) 40.3 Physical Exam Const alert, oriented x3, no apparent distress and healthy appearing General Appearance: cooperative GI normal to inspection, nondistended, normoactive bowel sounds, soft to palpation, non-tender and non-distended Percussion: normal to percussion Rectal Exam: deferred Results Lab / Micro Data Labs: Laboratory Results - last 24 hr 02/08/25 11:48: Urine Test Negative Assessment & Plan Assessment/Plan (1) Nausea: (2) Diarrhea: QUALIFIERS: Diarrhea type: unspecified type Qualified Code(s): R19.7 - Diarrhea, unspecified PLAN: Assessment and Plan Assessment and Plan (1) Nausea: Status: Acute (2) Diarrhea: Status: Chronic Qualifiers: Diarrhea type: unspecified type Qualified Code(s): R19.7 - Diarrhea, unspecified Plan SHWETA ARMENDARIZ, is a 24 F who presents to the office today for FU. Discussed care plan with her. She is not willing to try rifaximin. She appears poorly motivated to help herself resolve any any of her symptoms. Asked her to consider low FODMAP food elimination again and fiber supplementation. schedule EGD consider colonoscopy office FU 2wks after EGD
--- NOTE | 2025-02-08 13:20 | PCM.POST.ANE ---
Anesthesia: Postop Eval I Current Vital Signs Temperature: 97.4 F Pulse Rate: 82 Blood Pressure: 118/59 Respiratory Rate: 18 Pulse Ox: 97 Oxygen Delivery Method: Room Air Assessment Airway patent: Yes Spontaneous unlabored respirations: Yes Mental status: Awake nausea: No Vomiting: No Anesthesia Complication: No Fluid Hydration Crystalloid volume administer (ml): 300 Total IV fluid infused: 300 Progress Note Anesthesia document: Postop Eval 1 completed: Yes
--- NOTE | 2025-02-08 13:29 | OP.PROVAT_ITS ---
02/08/2025 Marianela Nagel Re : Upper GI endoscopy procedure for Aleah [place]land [place] This procedure was performed on Saturday, February 08, 2025. My impressions and recommendations are as follows: Impressions : - Esophageal mucosal changes consistent with eosinophilic esophagitis. - Gastroparesis. Biopsied. - Bilious gastric fluid. - Normal examined duodenum. Biopsied. - Biopsies were taken with a cold forceps for evaluation of eosinophilic esophagitis. Recommendations : - Discharge patient to home. - - Continue present medications. My findings are described in the full procedure note, which is enclosed. If I can be of further assistance, please feel free to contact me at . Sincerely, Chandan Moses, 02/08/2025 1:28:41 PM This report has been signed electronically.
--- NOTE | 2025-02-08 13:29 | OP.EGD_ITS ---
Patient Name: Aleah Kirkland Procedure Date: 02/08/2025 12:51 PM Date of : 2000 Age: 24 Procedure: Upper GI endoscopy Indications: Epigastric abdominal pain, Periumbilical abdominal pain, Dyspepsia Providers: Chandan Moses DO Referring MD: Marianela Nagel Medicines: Monitored Anesthesia Care Patient Profile: This is a 24 year old female. Refer to note in patient chart for documentation of history and physical. Patient has symptoms of chronic abdominal distention, chronic left upper quadrant abdominal pain, acute epigastric abdominal pain, acute dyspepsia and chronic nausea. Complications: No immediate complications. Procedure: Pre-Anesthesia Assessment: - Prior to the procedure, a History and Physical was performed, and patient medications and allergies were reviewed. The patient is competent. The risks and benefits of the procedure and the sedation options and risks were discussed with the patient. All questions were answered and informed consent was obtained. Patient identification and proposed procedure were verified by the physician in the pre-procedure area. Mental Status Examination: alert and oriented. Airway Examination: normal oropharyngeal airway and neck mobility. Respiratory Examination: clear to auscultation. CV Examination: normal. Prophylactic Antibiotics: The patient does not require prophylactic antibiotics. Prior Anticoagulants: The patient has taken no anticoagulant or antiplatelet agents except for aspirin. ASA Grade Assessment: II - A patient with mild systemic disease. After reviewing the risks and benefits, the patient was deemed in satisfactory condition to undergo the procedure. The anesthesia plan was to use monitored anesthesia care (MAC). Immediately prior to administration of medications, the patient was re-assessed for adequacy to receive sedatives. The heart rate, respiratory rate, oxygen saturations, blood pressure, adequacy of pulmonary ventilation, and response to care were monitored throughout the procedure. The physical status of the patient was re-assessed after the procedure. After obtaining informed consent, the endoscope was passed under direct vision. Throughout the procedure, the patient's blood pressure, pulse, and oxygen saturations were monitored continuously. The gastroscope was introduced through the mouth, and advanced to the third part of the duodenum. Small bowel enteroscopy was deemed necessary. The upper GI endoscopy was accomplished without difficulty. The patient tolerated the procedure well. Scope In: 1:03:06 PM Scope Out: 1:09:29 PM Total Procedure Duration Time 0 hours 6 minutes 23 seconds Findings: Mucosal changes including ringed esophagus, feline appearance, longitudinal furrows and small-caliber esophagus were found in the entire esophagus. Biopsies were obtained from the proximal and distal esophagus with cold forceps for histology of suspected eosinophilic esophagitis. Verification of patient identification for the specimen was done. Estimated blood loss was minimal. Suspect gastroparesis due to absence of peristalsis, patient symptoms and retained gastric contents. Biopsies were taken with a cold forceps for histology. Verification of patient identification for the specimen was done. Estimated blood loss was minimal. Bilious fluid was found in the stomach. The examined duodenum was normal. Biopsies were taken with a cold forceps for histology. Verification of patient identification for the specimen was done. Estimated blood loss was minimal. Impression: - Esophageal mucosal changes consistent with eosinophilic esophagitis. - Gastroparesis. Biopsied. - Bilious gastric fluid. - Normal examined duodenum. Biopsied. - Biopsies were taken with a cold forceps for evaluation of eosinophilic esophagitis. Recommendation: - Discharge patient to home. - - Continue present medications. Procedure Code(s): --- Professional --- 61116, Small intestinal endoscopy, enteroscopy beyond second portion of duodenum, not including ileum; with biopsy, single or multiple CPT copyright 2021 [employer]. All rights reserved. The codes documented in this report are preliminary and upon digital strategist review may be revised to meet current compliance requirements. Chandan Moses DO 02/08/2025 1:28:41 PM This report has been signed electronically. Number of Addenda: 0 Note Initiated On: 02/08/2025 12:51 PM
--- NOTE | 2025-02-08 15:11 | PCM.POSTANE2 ---
Anesthesia Postop Eval I Sum Postop Eval Completion status Anesthesia document: Postop Eval 1 completed: Yes Anesthesia Postop Eval I Summary Anesthesia Postop Eval I Summary: Anesthesia Postop Eval I: Assessment Summary Airway patent Yes 02/08/25 13:21 [email or web address] Spontaneous unlabored Yes 02/08/25 13:21 [email or web address] respirations Mental status Awake 02/08/25 13:21 [email or web address] nausea No 02/08/25 13:21 [email or web address] Vomiting No 02/08/25 13:21 [email or web address] Anesthesia Postop Eval I: Fluid Summary Crystalloid volume administer 300 02/08/25 13:21 [email or web address] (ml) Colloids volume administered ( ml) Blood Product volume administered (ml) Total IV fluid infused 300 02/08/25 13:21 [email or web address] Anesthesia Postop Eval I: Summary Notes Anesthesia Complication No 02/08/25 13:21 [email or web address] Anesthesia Complication Comment: Post-operative progress note Anesthesia: Postop Eval II Evaluation Mental status: Awake and Calm Pain Level: 0 nausea: No Vomiting: No Complications Anesthesia Complication: No
[2025-02-08 15:36] LABS: Ferritin 102 ng/mL (22-378); Vitamin B12 297 pg/mL (180-914)
[2025-02-08 15:39] LABS: Iron 107 ug/dL (50-170); LDH 186 U/L (84-246)
[2025-02-13 02:06] LABS: Anti-Chromatin <0.2 AI (0.0-0.9); Anti-Jo <0.2 AI (0.0-0.9); Anti-dsDNA Ab 2 IU/mL (0-9); Egg, Whole 0.29 kU/L (Class 0/I); Mussels <0.10 kU/L (Class 0); SJOGREN'S Anti-SS-A test < 0.2 AI (0.0-0.9); SJOGREN'S Anti-SS-B test < 0.2 AI (0.0-0.9)
[2025-02-14 13:08] LABS: ACCA 9 units (0-90); ALCA 5 units (0-60); AMCA 38 units (0-100); Albumin 4.1 g/dL (2.9-4.4); Cytoplasmic Ab (C-ANCA) <1:20 titer (Neg:<1:20); Gamma Globulin 1.2 g/dL (0.4-1.8); Gastrin, Serum 33 pg/mL (0-115); Immunoglobulin A 181 mg/dL (87-352); Immunoglobulin G 1322 mg/dL (586-1602); Immunoglobulin M 132 mg/dL (26-217); PROEL- TOTAL PROTEIN 7.6 g/dL (6.0-8.5); Perinuclear Ab (P-ANCA) <1:20 titer (Neg:<1:20)
== END 2025-02-08 13:56 | disposition home or self-care (01) ==
LOC: EN 11:23 → AC 11:28
PROVIDERS: Anesthesiology; PCP Nurse Practitioner Family; Referring Provider Nurse Practitioner Family; Visit Provider Internal Medicine Gastroenterology
PROC: 0DJ08ZZ Inspection of Upper Intestinal Tract, Via Natural or Artificial Opening Endoscopic (ICD-10-PCS; CPT 43235; principal; 2025-02-08 12:25)
DX: K31.84 Gastroparesis (principal); K29.50 Unspecified chronic gastritis without bleeding
CPT/HCPCS: 44361; 36415; 81025; 82607; 82728; 82784; 82785; 82941; 83516; 83540; 83615; 84165; 86003; 86005; 86036; 86037; 86225; 86235; 86334; 86671; 88305; 88342; J2405